=== PATIENT | male | born 1975 | race Caucasian/White ===

== ENCOUNTER 2018-05-21 13:20 | Emergency (ER) | payer MEDICAID, SELFPAY ==
[2018-05-21 13:25] VITALS: BP 118/84; PULSE 70; RESP 16; TEMP 36.9; O2SAT 97
--- NOTE | 2018-05-21 14:08 | ED.GENADUL ---
Disposition Clinical Impression: Penile lesion Disposition: HOME Condition: Fair Additional Instructions: Encourage water intake. Please keep a journal of your symptoms. I asked her home health care social worker help to help facilitate follow-up with neurology. Please follow-up with primary care regarding her neurology symptoms as well as your penile lesion. Your lesion does not appear infected. Do not see evidence of cellulitis or an abscess. It is also not consistent with typical appearance for STD. However, STD testing was performed today and remains pending. Will contact you with any positive results. If you develop spreading of the lesion, increased pain, discharge from your penis, fever/chills or other new/worsening symptoms please seek care urgently once again. Referrals: Ankur Shelton MD [Primary Care Provider] - Medical Decision Making - Lab Data Laboratory Tests 05/21/18 05/21/18 14:22 14:22 WBC 6.13 RBC 4.59 Hgb 14.9 Hct 43.3 MCV 94.3 MCH 32.5 MCHC 34.4 RDW 12.9 Plt Count 225 MPV 9.9 Immature Gran % 0.5 Neutrophils % 56.5 Lymphocytes % 28.7 Monocytes % 9.1 Eosinophils % 4.4 Basophils % 0.8 Absolute Neutrophils 3.46 Absolute Lymphocytes 1.76 Absolute Monocytes 0.56 Absolute Eosinophils 0.27 Absolute Basophils 0.05 Sodium 138 Potassium 3.7 Chloride 104 Carbon Dioxide 25.3 Anion Gap 8.7 BUN 9 Creatinine 0.96 Estimated GFR/1.73 m2 >= 60.00 Glucose 111 H Calcium 8.7 Magnesium 2.1 Total Bilirubin 0.3 AST 32 ALT 41 Alkaline Phosphatase 75 Total Protein 7.8 Albumin 4.0 Results reviewed for labs ordered during visit: Yes - Medical Decision Making Patient presents today with chief complaint of penile lesion. On exam, there is a linear 1 cm raised pink area. It is nontender to palpation. I do not feel any swelling. There is no area of fluctuance to suggest an abscess. There is no opening in the skin. It is not appear to be a chancre or herpetic lesion. No penile discharge. This appears more consistent with him having rubbed against pants versus other irritant. Patient does wear for canvas pants and does not wear any underwear. I did question if it is possible that he allow this area to rub against the pants and he does state it is possible. However, we will obtain STD testing. I did discuss with him that this will take a few days to get the results. At this point, I do not feel that he needs to be prophylactically treated. Regard to his concern for MS, I discussed with him the methods in which to diagnosis. However, will obtain baseline laboratory evaluation. He denies any acute changes at this time. Symptoms have been present for the past 2 years and have been unchanged. I do not feel that emergent MRI is appropriate at this time. However, I will help to facilitate follow-up with neurology. Laboratory evaluation without significant abnormality. Discussed findings with patient. Advised STD testing is still pending. Encourage hydration. Advise close follow-up with primary care to discuss his MS symptoms and a penile lesion. Advised him to try to wear protective clothing to help prevent his penis from rubbing against his thinking of his pants. We discussed signs symptoms of infection and when to seek care urgently once again. I have also asked her home health care social worker to help facilitate follow-up regarding his neurologic symptoms. History of Present Illness - General Chief complaint: RashLesion Stated complaint: CYST Time Seen by Provider: 05/21/18 14:08 Source: patient, RN notes reviewed Mode of arrival: ambulatory Limitations: no limitations - History of Present Illness Initial comments: Patient is a 42-year-old male presenting today with chief complaint of penile lesion. He reports the lesion has been present for the past 3 weeks. Is been unchanged. Reports that it is nonpainful unless he obtains an erection. States that he has not been sexually active in the past 5 months. States he has been in a monogamous relationship for the past 6 years. Reports he was last tested for STDs 20 years ago. She denies any penile discharge. No change in urinary or bowel habits. Patient is also concerned that he may have MS. He reports that he has family history of MS. Reports that for the past 2 years he has had intermittent confusion and weakness. States he has had intermittent fatigue. He has not discussed this as of yet with his primary care. Denies any recent changes in this. No recent illness. No fevers or chills. Denies any headache. Reports that currently he is feeling quite well and is not having 1 of these episodes. Feels that these increased with his anxiety. He has been smoking marijuana daily which he reports has been helping with his anxiety and depression. However, secondary to financial stressors reports that he has not been able to purchase cannabis this week. Is concerned that this may be heightened his anxiety. Denies any head trauma. Denies any GI upset. - Related Data [place] Carbonate Cr [Eskalith Cr] 900 mg PO DAILY 03/29/13 Albuterol [Proair Hfa] 2 puff IH Q6H PRN PRN #1 inh 10/08/16 Inhaler, Assist Devices [Space Chamber Plus] 1 each MC Q6H PRN PRN #1 spacer 10/08/16 Escitalopram [Lexapro] 1 tab PO DAILY 04/28/17 Acetaminophen [Tylenol Extra Strength] 1,000 mg PO Q6H 5 Days #60 tab 05/23/18 Ibuprofen [Motrin Ib] 600 mg PO Q6H 5 Days #60 tablet 05/23/18 Allergies Allergy/AdvReac Type Severity Reaction Status Date / Time fluoxetine HCl [From Prozac] Allergy Severe Hives Unverified 05/21/18 13:30 Review of Systems Constitutional: see HPI. denies: chills, fever Eyes: denies: vision change ENT: denies: ear pain, throat pain, congestion Respiratory: no symptoms reported. denies: cough, shortness of breath Cardiovascular: denies: chest pain, palpitations Gastrointestinal: denies: abdominal pain, nausea, vomiting, diarrhea Genitourinary: as per HPI Musculoskeletal: as per HPI Skin: as per HPI Neurological: as per HPI Past Medical History - Past Medical History Migraines Surgical history: no surgical history Psychiatric history: bipolar, depression - Social History Smoking status: current everyday smoker Alcohol use: none Drug use: marijuana General Exam - General Limitations: no limitations General appearance: alert, in no apparent distress - Head Head exam: Present: atraumatic, normocephalic - Eye Eye exam: Present: normal apperance, PERRL, EOMI. Absent: scleral icterus, conjunctival injection Pupils: Present: normal accommodation - ENT ENT exam: Present: normal exam - Neck Neck exam: Present: normal inspection, full ROM. Absent: tenderness - Respiratory Respiratory exam: Present: normal lung sounds bilaterally. Absent: respiratory distress - Cardiovascular Cardiovascular Exam: Present: regular rate, normal rhythm, normal heart sounds - GI/Abdominal GI/Abdominal exam: Present: soft. Absent: distended, tenderness, guarding - Rectal Rectal exam: Present: deferred - exam: Present: circumcision. Absent: normal inspection (Exam of the patient's penis is significant for an 8 mm slightly raised pink area just proximal to the glans of the penis on the right side. There is no opening. No ulceration. Appears fairly linear. No pain on palpation. No area of fluctuance. It is not hard. No penile discharge. No pain with palpation about the shaft of the penis over the glans.), testicular tenderness, urethral discharge, scrotal swelling - Extremities Exam Extremities exam: Present: normal inspection (5/5 strength equal bilaterally in both the upper and lower extremities. Full range of motion. Reflexes equal in upper and lower extremities bilaterally. No sensory deficit.) - Back Exam Back exam: Present: normal inspection - Neurological Exam Neurological exam: Present: alert, oriented X3, CN II-XII intact, normal gait, reflexes normal. Absent: motor sensory deficit - Expanded Neurological Exam No standard instances Speech: Present: fluid speech Cranial nerves: EOM's Intact: Normal, Tongue Deviation: Normal, Nystagmus: Normal Cerebellar function: Finger to Nose: Normal, Heel to Hernandez: Normal, Romberg: Normal Upper motor neuron: Gregory Neglect: Normal, Pronator Drift: Normal Sensory exam: Upper Extremity Light Touch: Normal, Lower Extremity Light Touch: Normal Best Eye Response (Duy): (4) open spontaneously Best Motor Response (Duy): (6) obeys commands Best Verbal Response ([place]): (5) oriented - Psychiatric Psychiatric exam: Present: normal affect, normal mood - Skin Skin exam: Absent: normal color (As above) Course Vital Signs - 24 hr 05/21/18 13:25 Temperature 36.9 C Pulse 70 Respiratory 16 Rate Blood Pressure 118/84 Pulse Oximetry 97
--- NOTE | 2018-05-21 14:33 | ED.GENADUL_ITS ---
Disposition Clinical Impression: Penile lesion Disposition: HOME Condition: Fair Additional Instructions: Encourage water intake. Please keep a journal of your symptoms. I asked her resident care manager help to help facilitate follow-up with neurology. Please follow-up with primary care regarding her neurology symptoms as well as your penile lesion. Your lesion does not appear infected. Do not see evidence of cellulitis or an abscess. It is also not consistent with typical appearance for STD. However, STD testing was performed today and remains pending. Will contact you with any positive results. If you develop spreading of the lesion, increased pain, discharge from your penis, fever/chills or other new/worsening symptoms please seek care urgently once again. Referrals: Ankur Shelton MD [Primary Care Provider] - Medical Decision Making - Lab Data Laboratory Tests 05/21/18 05/21/18 14:22 14:22 WBC 6.13 RBC 4.59 Hgb 14.9 Hct 43.3 MCV 94.3 MCH 32.5 MCHC 34.4 RDW 12.9 Plt Count 225 MPV 9.9 Immature Gran % 0.5 Neutrophils % 56.5 Lymphocytes % 28.7 Monocytes % 9.1 Eosinophils % 4.4 Basophils % 0.8 Absolute Neutrophils 3.46 Absolute Lymphocytes 1.76 Absolute Monocytes 0.56 Absolute Eosinophils 0.27 Absolute Basophils 0.05 Sodium 138 Potassium 3.7 Chloride 104 Carbon Dioxide 25.3 Anion Gap 8.7 BUN 9 Creatinine 0.96 Estimated GFR/1.73 m2 >= 60.00 Glucose 111 H Calcium 8.7 Magnesium 2.1 Total Bilirubin 0.3 AST 32 ALT 41 Alkaline Phosphatase 75 Total Protein 7.8 Albumin 4.0 Results reviewed for labs ordered during visit: Yes - Medical Decision Making Patient presents today with chief complaint of penile lesion. On exam, there is a linear 1 cm raised pink area. It is nontender to palpation. I do not feel any swelling. There is no area of fluctuance to suggest an abscess. There is no opening in the skin. It is not appear to be a chancre or herpetic lesion. No penile discharge. This appears more consistent with him having rubbed against pants versus other irritant. Patient does wear for canvas pants and does not wear any underwear. I did question if it is possible that he allow this area to rub against the pants and he does state it is possible. However, we will obtain STD testing. I did discuss with him that this will take a few days to get the results. At this point, I do not feel that he needs to be prophylactically treated. Regard to his concern for MS, I discussed with him the methods in which to diagnosis. However, will obtain baseline laboratory evaluation. He denies any acute changes at this time. Symptoms have been present for the past 2 years and have been unchanged. I do not feel that emergent MRI is appropriate at this time. However, I will help to facilitate follow-up with neurology. Laboratory evaluation without significant abnormality. Discussed findings with patient. Advised STD testing is still pending. Encourage hydration. Advise close follow-up with primary care to discuss his MS symptoms and a penile lesion. Advised him to try to wear protective clothing to help prevent his penis from rubbing against his thinking of his pants. We discussed signs symptoms of infection and when to seek care urgently once again. I have also asked her resident care manager to help facilitate follow- up regarding his neurologic symptoms. History of Present Illness - General Chief complaint: RashLesion Stated complaint: CYST Time Seen by Provider: 05/21/18 14:08 Source: patient, RN notes reviewed Mode of arrival: ambulatory Limitations: no limitations - History of Present Illness Initial comments: Patient is a 42-year-old male presenting today with chief complaint of penile lesion. He reports the lesion has been present for the past 3 weeks. Is been unchanged. Reports that it is nonpainful unless he obtains an erection. States that he has not been sexually active in the past 5 months. States he has been in a monogamous relationship for the past 6 years. Reports he was last tested for STDs 20 years ago. She denies any penile discharge. No change in urinary or bowel habits. Patient is also concerned that he may have MS. He reports that he has family history of MS. Reports that for the past 2 years he has had intermittent confusion and weakness. States he has had intermittent fatigue. He has not discussed this as of yet with his primary care. Denies any recent changes in this. No recent illness. No fevers or chills. Denies any headache. Reports that currently he is feeling quite well and is not having 1 of these episodes. Feels that these increased with his anxiety. He has been smoking marijuana daily which he reports has been helping with his anxiety and depression. However, secondary to financial stressors reports that he has not been able to purchase cannabis this week. Is concerned that this may be heightened his anxiety. Denies any head trauma. Denies any GI upset. - Related Data [place] Carbonate Cr [Eskalith Cr] 900 mg PO DAILY 03/29/13 Albuterol [Proair Hfa] 2 puff IH Q6H PRN PRN #1 inh 10/08/16 Inhaler, Assist Devices [Space Chamber Plus] 1 each MC Q6H PRN PRN #1 spacer Escitalopram [Lexapro] 1 tab PO DAILY 04/28/17 Acetaminophen [Tylenol Extra Strength] 1,000 mg PO Q6H 5 Days #60 tab 05/23/18 Ibuprofen [Motrin Ib] 600 mg PO Q6H 5 Days #60 tablet 05/23/18 Allergies Allergy/AdvReac Type Severity Reaction Status Date / Time fluoxetine HCl [From Prozac] Allergy Severe Hives Unverified 05/21/18 13:30 Review of Systems Constitutional: see HPI. denies: chills, fever Eyes: denies: vision change ENT: denies: ear pain, throat pain, congestion Respiratory: no symptoms reported. denies: cough, shortness of breath Cardiovascular: denies: chest pain, palpitations Gastrointestinal: denies: abdominal pain, nausea, vomiting, diarrhea Genitourinary: as per HPI Musculoskeletal: as per HPI Skin: as per HPI Neurological: as per HPI Past Medical History - Past Medical History Migraines Surgical history: no surgical history Psychiatric history: bipolar, depression - Social History Smoking status: current everyday smoker Alcohol use: none Drug use: marijuana General Exam - General Limitations: no limitations General appearance: alert, in no apparent distress - Head Head exam: Present: atraumatic, normocephalic - Eye Eye exam: Present: normal apperance, PERRL, EOMI. Absent: scleral icterus, conjunctival injection Pupils: Present: normal accommodation - ENT ENT exam: Present: normal exam - Neck Neck exam: Present: normal inspection, full ROM. Absent: tenderness - Respiratory Respiratory exam: Present: normal lung sounds bilaterally. Absent: respiratory distress - Cardiovascular Cardiovascular Exam: Present: regular rate, normal rhythm, normal heart sounds - GI/Abdominal GI/Abdominal exam: Present: soft. Absent: distended, tenderness, guarding - Rectal Rectal exam: Present: deferred - exam: Present: circumcision. Absent: normal inspection (Exam of the patient' s penis is significant for an 8 mm slightly raised pink area just proximal to the glans of the penis on the right side. There is no opening. No ulceration. Appears fairly linear. No pain on palpation. No area of fluctuance. It is not hard. No penile discharge. No pain with palpation about the shaft of the penis over the glans.), testicular tenderness, urethral discharge, scrotal swelling - Extremities Exam Extremities exam: Present: normal inspection (5/5 strength equal bilaterally in both the upper and lower extremities. Full range of motion. Reflexes equal in upper and lower extremities bilaterally. No sensory deficit.) - Back Exam Back exam: Present: normal inspection - Neurological Exam Neurological exam: Present: alert, oriented X3, CN II-XII intact, normal gait, reflexes normal. Absent: motor sensory deficit - Expanded Neurological Exam No standard instances Speech: Present: fluid speech Cranial nerves: EOM's Intact: Normal, Tongue Deviation: Normal, Nystagmus: Normal Cerebellar function: Finger to Nose: Normal, Heel to Hernandez: Normal, Romberg: Normal Upper motor neuron: Gregory Neglect: Normal, Pronator Drift: Normal Sensory exam: Upper Extremity Light Touch: Normal, Lower Extremity Light Touch: Normal Best Eye Response ([place]): (4) open spontaneously Best Motor Response (Duy): (6) obeys commands Best Verbal Response (Duy): (5) oriented - Psychiatric Psychiatric exam: Present: normal affect, normal mood - Skin Skin exam: Absent: normal color (As above) Course Vital Signs - 24 hr 05/21/18 13:25 Temperature 36.9 C Pulse 70 Respiratory 16 Rate Blood Pressure 118/84 Pulse Oximetry 97
[2018-05-21 14:41] LABS: Abs Immature Grans 0.03 k/cumm (0.0-0.09); Absolute Basophil Count 0.05 k/cumm (0.0-0.2); Absolute Eosinophil Count 0.27 k/cumm (0.0-0.7); Absolute Lymphocyte Count 1.76 k/cumm (1.2-3.4); Absolute Monocyte Count 0.56 k/cumm (0.11-0.7); Absolute Neutrophil Count 3.46 k/cumm (1.2-6.7); Basophils % 0.8; Eosinophils % 4.4; HCT 43.3 % (40.0-50.0); HGB 14.9 g/dL (13.5-17.5); Immature Grans % 0.5; Lymphocytes % 28.7; Mean Corp. HGB Concentration 34.4 g/dL (32.0-36.0); Mean Corpuscular Hemoglobin 32.5 pg (27.0-33.0); Mean Corpuscular Volume 94.3 fL (80-95); Mean Platelet Volume 9.9 fL (8.0-11.0); Monocytes % 9.1; Neutrophils % 56.5; Platelet Count 225 x1000/uL (130-400); RBC 4.59 m/cumm (4.50-6.00); RBC Distribution Width 12.9 % (11.8-14.1); White Blood Cell Count 6.13 k/cumm (4.4-10.8)
[2018-05-21 14:54] LABS: ALT 41 U/L (12-78); AST 32 U/L (15-37); Alkaline Phosphatase 75 U/L (46-116); Anion Gap 8.7 mmol/L (3-11); BUN 9 mg/dL (7-18); Bilirubin, Total 0.3 mg/dL (0.2-1.0); CO2 25.3 mmol/L (21.0-32.0); CREATININE 0.96 mg/dL (0.70-1.30); Calcium 8.7 mg/dL (8.5-10.1); Chloride 104 mmol/L (98-107); Glucose 111 mg/dL (70-100); Magnesium 2.1 mg/dL (1.8-2.4); Potassium 3.7 mmol/L (3.5-5.1); Sodium 138 mmol/L (136-145); Total Protein 7.8 g/dL (6.4-8.2)
[2018-05-21 15:40] VITALS: BP 118/84; PULSE 70; RESP 16; TEMP 36.9; O2SAT 97
--- NOTE | 2018-05-22 08:56 | PDOC.ERCMPRO ---
Care Management Progress Note 05/22-Wendy MATA requested assistance with a neurology f/u as soon as possible for ?MS. Referral faxed to Neurology this am.
[2018-05-22 10:58] LABS: Syphilis Serology (RPR) Negative (Negative)
[2018-05-22 14:30] LABS: Chlamydia Result Negative; GC Result Negative; Specimen Description URINE
== END 2018-05-21 15:45 | disposition home or self-care (01) ==
PROVIDERS: Physician Assistant; Emergency Provider Student in an Organized Health Care Education/Training Program; PCP General Practice
DX: N50.9 Disorder of male genital organs, unspecified (principal)
CPT/HCPCS: 36415; 80053; 87491; 87591; 99281; 83735; 85025; 86592

== ENCOUNTER 2018-05-23 00:19 | Emergency (ER) | payer MEDICAID, SELFPAY ==
[2018-05-23 00:22] VITALS: BP 148/112; PULSE 74; RESP 18; TEMP 36.7; O2SAT 98
--- NOTE | 2018-05-23 00:28 | ED.GENADUL ---
Disposition Clinical Impression: Bruise, Hand pain, Right hand pain Disposition: HOME Condition: Good Instructions: RICE Therapy (ED) Additional Instructions: Please take Tylenol and Motrin for your pain. Please use ice as often as possible. Follow-up with your family doctor soon as possible. If you notice any worsening of your symptoms, or any new symptoms such as vomiting, diarrhea, fever, chills, shortness of breath, chest pain, numbness, weakness, or fainting , please return immediately to the emergency department for reevaluation. Please follow up with your primary care provider as soon as possible for reassessment and reevaluation. As always, it was a pleasure participating in your medical care today. Prescriptions: Acetaminophen [Tylenol Extra Strength] 1,000 mg PO Q6H 5 Days #60 tab Ibuprofen [Motrin Ib] 600 mg PO Q6H 5 Days #60 tablet Referrals: Ankur Shelton MD [Primary Care Provider] - Medical Decision Making - Medical Decision Making This is a 42-year-old man who presents after punching a wall with his right dominant hand. Notable bruising over the third and fourth MCP joints. There is concern for potential boxer's fracture. We will get an x-ray to evaluate for any acute pathology, including fracture. He will be given Tylenol here. Ice will be administered. X-ray was reviewed, and no large significant fractures noted. There does appear to be a small disruption in the proximal phalanges of the second digit, however on repeat evaluation the patient has no point tenderness there. After the Tylenol is given the patient is feeling much better and is able to flex and extend his fingers and hand without any significant difficulty or notable pain. With no notable fracture, I feel that he can be given an Sandoval wrap, and continue Tylenol and Motrin for home use. We discussed red flags for which to return as well as the importance of follow-up, and he will be following up with his primary care provider in 48 hours. I have extensively reviewed the treatment plan and discharge instructions with the patient. I have addressed all patient concerns at this time. The patient was made aware of what symptoms to monitor for that would warrant a return to the emergency department. Discussed the plan with the patient, they demonstrate verbal understanding and agreement with our assessment and plan at this time. History of Present Illness - General Chief complaint: Orthopedic Stated complaint: RIGHT HAND INJURY Time Seen by Provider: 05/23/18 00:26 - History of Present Illness Initial comments: This is a 42-year-old male with past medical history of bipolar and depression, who presents for evaluation of right hand pain. Roughly 10-15 minutes prior to arrival the patient punched a door with his right dominant hand. He had notable pain at the third and fourth MCP joint on this hand. He did take some Advil, but no other medications prior to arrival. He does complain of pain in that area, no significant radiation. He does complain of mild burning associated with it though. Patient denies any numbness, tingling. He denies any arm, elbow or shoulder pain. He denies any previous orthopedic complications in the past. He denies any illicit drug use or IV drug use but does admit to regular marijuana use. He has no other complaints at this time. Negative pertinent family history. No recent pertinent surgical history. Patient states that he does feel safe at home. He did punch the wall in frustration with himself not at his significant other. He denies any homicidal or suicidal ideations at this time. - Related Data [place] Carbonate Cr [Eskalith Cr] 900 mg PO DAILY 03/29/13 Albuterol [Proair Hfa] 2 puff IH Q6H PRN PRN #1 inh 10/08/16 Inhaler, Assist Devices [Space Chamber Plus] 1 each MC Q6H PRN PRN #1 spacer 10/08/16 Escitalopram [Lexapro] 1 tab PO DAILY 04/28/17 Acetaminophen [Tylenol Extra Strength] 1,000 mg PO Q6H 5 Days #60 tab 05/23/18 Ibuprofen [Motrin Ib] 600 mg PO Q6H 5 Days #60 tablet 05/23/18 Allergies Allergy/AdvReac Type Severity Reaction Status Date / Time fluoxetine HCl [From Prozac] Allergy Severe Hives Unverified 05/21/18 13:30 Review of Systems Other: 10 point review of systems was performed, pertinent positives and negatives are noted in the history of present illness. Past Medical History - Past Medical History Migraines Surgical history: no surgical history - Social History Alcohol use: none Drug use: marijuana General Exam - Other Other exam information: 1.Const: Well-nourished, Well-developed, appearing stated age 2.Eyes: PERRL, no conjunctival injection, and symmetrical lids. 3.ENT: Atraumatic external nose and ears. Moist MM. Neck: Symmetric, trachea midline, No thyromegaly. 4.CVS: +S1/S2, No murmurs or gallops. Peripheral pulses 2+ and equal in all extremities. Brisk capillary refill in all extremities. 5.RESP: Unlabored respiratory effort. Clear to auscultation bilaterally. No wheezes rales or rhonchi 6.GI: Soft, Nontender/Nondistended, No hepatosplenomegaly. No guarding or rebound. 7.MSK: Patient demonstrates trauma to the right hand over the third and fourth MCP joints. There is notable bruising. No deformity. He demonstrates good flexion-extension of all fingers, good sensation, brisk capillary refill. Patient demonstrates no internal or external rotation of the third fourth or fifth digit with flexion of the fingers. No pain over the anatomical snuffbox, carpals or proximal metacarpals. No pain in the third fourth or fifth finger. Pain is only noted over the MCP joint. 8.Skin: Warm, Dry. No rashes or lesions. No evidence of skin breakdown. 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 Sensation grossly intact, no focal neurologic deficits. 10.Psych: (AAO) x3. Appropriate mood and affect Course Vital Signs - 24 hr 05/23/18 00:22 Temperature 36.7 C Pulse 74 Respiratory 18 Rate Blood Pressure 148/112 Pulse Oximetry 98
[2018-05-23] MEDS: Acetaminophen 500 MG TAB 1000 MG PO (00:38)
--- NOTE | 2018-05-23 00:45 | DI.REPORT_ITS ---
SYMPTOMS/DIAGNOSIS: PUNCHED WALL, TENDER 3/4 MCP JOINT, CONCERN FOR BOXER'S FX RIGHT HAND: Three views were obtained. No fracture is seen.
--- NOTE | 2018-05-23 01:25 | DI.VRAD_ITS ---
EXAM: XR Right Hand Complete, 3 or More Views CLINICAL HISTORY: 42 years old, male; Pain; Hand; Right; Patient HX: Pain and swelling at the base of 3rd and 4th metacarpals after punching a door TECHNIQUE: Frontal, lateral and oblique views of the right hand. COMPARISON: No relevant prior studies available. FINDINGS: Bones/joints: Unremarkable. No acute fracture. No dislocation. Soft tissues: Unremarkable. No radiopaque foreign body. IMPRESSION: Normal right hand x-rays. Dictated and Authenticated by: Felipe Love MD. Ordering:AVA CRESPO MD
== END 2018-05-23 01:10 | disposition home or self-care (01) ==
PROVIDERS: Emergency Provider Student in an Organized Health Care Education/Training Program; PCP General Practice
DX: S60.221A Contusion of right hand, initial encounter (principal); M79.641 Pain in right hand; W22.8XXA Striking against or struck by other objects, initial encounter
CPT/HCPCS: 99283; 73130

== ENCOUNTER 2018-06-05 20:25 | Emergency (ER) | payer MEDICAID, SELFPAY ==
[2018-06-05 20:30] VITALS: BP 136/106; PULSE 90; RESP 16; TEMP 36.8; O2SAT 98
--- NOTE | 2018-06-05 21:35 | DI.RPTCT_ITS ---
SYMPTOM/DIAGNOSIS: INTERMITTENT VARIUS NEURO COMPLAINTS, PSYCH EVALUATION, NUMBNESS NONCONTRAST HEAD CT: A noncontrast enhanced examination was performed. There is no evidence of an intra/extra-axial hemorrhage. The castillo white matter differentiation is maintained throughout. There is no evidence of a mass. The ventricles are intact. There is no evidence of a skull fracture. The paranasal sinuses are well maintained. There is no evidence of a mastoid effusion. SUMMARY: No acute intracranial abnormality is identified.
--- NOTE | 2018-06-05 21:46 | ED.GENADUL ---
Disposition Clinical Impression: Difficulty controlling anger, Numbness, Neurological complaint Disposition: HOME Condition: Good Additional Instructions: Follow up with mental health and with your parole officers in the morning as planned. Get back into group therapy which has helped you in the past. Follow-up with your counselor next week. Continue current medications. Return to ED for worsening depression, feeling unsafe, feeling loss of control, other concerns. Follow-up with primary care and neurology for evaluation of your intermittent neurologic complaints. Referrals: Ankur Shelton MD [Primary Care Provider] - Jodi Linder MD [ [facility] STAFF PHYSICIAN] - [facility] [employer] [Provider Group] Medical Decision Making - Lab Data Results reviewed for labs ordered during visit: Yes - Radiology Data Radiology results: report reviewed - Medical Decision Making Patient here for mental health eval. Currently denies being homicidal or suicidal. Reports having trouble controlling his anger and when this happens it causes him to be homicidal. However, he has never actually acted on any of these thoughts. Even tonight when he picked up a knife, if he immediately dropped it. He reports numerous intermittent neurologic complaints. Currently has a normal neurological exam. Reports a penile lesion but his exam is essentially normal. His parole officers are here with him. Laboratory studies and head CT ordered. Patient ordered for a sitter. Laboratory studies unremarkable other than TSH being slightly high. [place] is a little low. Head CT negative. Mental health databases computer consultant called in. Patient has been seen by mental health. Care plan/safety plan established. Patient to follow-up with his parole officers in the morning. They will get him back into group therapy that he had been in previously when he was in half-way. He will also follow-up with mental health in the morning. He has follow-up with his own counselor in 1 week. Return to ED for any unsafe feelings, increasing depression, other concerns. He will be referred back to primary care as well as to neurology for these neurologic symptoms he is reporting. History of Present Illness - General Chief complaint: PsychEval Stated complaint: PSYCH EVAL Time Seen by Provider: 06/05/18 20:59 Source: patient Mode of arrival: ambulatory Limitations: no limitations - History of Present Illness Initial comments: Patient is brought in by his parole officers for psychiatric evaluation. He apparently got angry at work tonight and picked up a knife as a threat to his boss. He ended up dropping a knife and no actual harm ever occurred. Patient reports that he has problems controlling his anger. When he gets angry he sometimes feels like he needs to hurt people. He reports that he has been like this for some time. He is in therapy. He is on medications. He has never actually acted on any of his thoughts. He denies being suicidal or homicidal currently because he has calmed down. Physically he has no acute complaints. He reports chronic neurologic symptoms that are intermittent in nature. He reports headaches, numbness on the left side, weakness in the left leg, dizziness, inability to concentrate. He reports these intermittently happen and have been happening for the last year to 2 years. He tells me he has told his primary care physician but feels nothing has been done. Patient also reports a lesion on his penis that he has been seen here previously for. He reports that it is still there. He otherwise denies other physical complaints. - Related Data [place] Carbonate Cr [Eskalith Cr] 600 mg PO DAILY 03/29/13 Albuterol [Proair Hfa] 2 puff IH Q6H PRN PRN #1 inh 10/08/16 Inhaler, Assist Devices [Space Chamber Plus] 1 each MC Q6H PRN PRN #1 spacer 10/08/16 Escitalopram [Lexapro] 1 tab PO DAILY 04/28/17 Acetaminophen [Tylenol] 1,000 mg PO Q6H 5 Days #60 tab 05/23/18 Ibuprofen [Motrin Ib] 600 mg PO Q6H PRN 06/05/18 Allergies Allergy/AdvReac Type Severity Reaction Status Date / Time fluoxetine HCl [From Prozac] Allergy Severe Hives Unverified 06/05/18 20:30 Review of Systems Constitutional: denies: chills, fever Eyes: denies: vision change ENT: denies: ear pain, congestion Respiratory: denies: cough, shortness of breath Cardiovascular: denies: chest pain Gastrointestinal: denies: abdominal pain, nausea, vomiting, diarrhea Genitourinary: denies: urgency, dysuria, frequency, hematuria, discharge, testicular pain Musculoskeletal: denies: back pain, arthralgia Skin: denies: rash Neurological: headache, weakness, numbness. denies: vertigo Psychiatric: homicidal thoughts (Not active), suicidal thoughts (Not active). denies: auditory hallucinations, visual hallucinations Past Medical History - Past Medical History Migraines Surgical history: no surgical history - Social History Smoking status: former smoker Alcohol use: none Drug use: marijuana General Exam - General Limitations: no limitations General appearance: alert, in no apparent distress - Head Head exam: Present: atraumatic, normocephalic - Eye Eye exam: Present: normal apperance, PERRL, EOMI - ENT ENT exam: Present: mucous membranes moist - Neck Neck exam: Present: normal inspection - Respiratory Respiratory exam: Present: normal lung sounds bilaterally - Cardiovascular Cardiovascular Exam: Present: regular rate, normal rhythm, normal heart sounds - GI/Abdominal GI/Abdominal exam: Present: soft. Absent: distended, tenderness - exam: Present: normal inspection, other (Exam done with male nurse present as brokerage purchase and sale clerk. There are no ulcers or lesions present. What he is describing as a lesion is more of a mild swelling. There is no open sores, redness, tenderness.). Absent: urethral discharge - Extremities Exam Extremities exam: Present: pedal edema - Back Exam Back exam: Present: normal inspection - Neurological Exam Neurological exam: Present: alert, oriented X3, CN II-XII intact. Absent: motor sensory deficit - Psychiatric Psychiatric exam: Present: normal affect, normal mood. Absent: agitated, homicidal ideation, suicidal ideation - Skin Skin exam: Present: warm, dry Course Vital Signs - 24 hr 06/05/18 20:30 Temperature 98.2 F Pulse 90 Respiratory 16 Rate Blood Pressure 136/106 Pulse Oximetry 98
[2018-06-05 22:00] LABS: Abs Immature Grans 0.04 k/cumm (0.0-0.09); Absolute Basophil Count 0.05 k/cumm (0.0-0.2); Absolute Eosinophil Count 0.15 k/cumm (0.0-0.7); Absolute Lymphocyte Count 1.45 k/cumm (1.2-3.4); Absolute Monocyte Count 0.76 k/cumm (0.11-0.7); Absolute Neutrophil Count 5.15 k/cumm (1.2-6.7); Basophils % 0.7; HCT 42.9 % (40.0-50.0); HGB 14.3 g/dL (13.5-17.5); Immature Grans % 0.5; Lymphocytes % 19.1; Mean Corp. HGB Concentration 33.3 g/dL (32.0-36.0); Mean Corpuscular Hemoglobin 30.8 pg (27.0-33.0); Mean Corpuscular Volume 92.5 fL (80-95); Mean Platelet Volume 9.6 fL (8.0-11.0); Neutrophils % 67.7; Platelet Count 287 x1000/uL (130-400); RBC 4.64 m/cumm (4.50-6.00); RBC Distribution Width 13.1 % (11.8-14.1)
[2018-06-05 22:18] LABS: ALT 27 U/L (12-78); AST 16 U/L (15-37); Albumin 4.1 g/dL (3.4-5.0); Alkaline Phosphatase 73 U/L (46-116); Anion Gap 5.3 mmol/L (3-11); BUN 9 mg/dL (7-18); Bilirubin, Total 0.2 mg/dL (0.2-1.0); CO2 27.7 mmol/L (21.0-32.0); CREATININE 0.94 mg/dL (0.70-1.30); Calcium 8.7 mg/dL (8.5-10.1); Chloride 105 mmol/L (98-107); Glucose 120 mg/dL (70-100); Sodium 138 mmol/L (136-145); TSH 5.65 uIU/mL (0.358-3.74); Total Protein 7.5 g/dL (6.4-8.2)
--- NOTE | 2018-06-05 22:22 | DI.VRAD_ITS ---
EXAM: CT Head Without Intravenous Contrast CLINICAL HISTORY: 42 years old, male; Signs and symptoms; Other: Intermittent/various neuro complaints TECHNIQUE: Axial computed tomography images of the head/brain without intravenous contrast. All CT scans at this facility use at least one of these dose optimization techniques: automated exposure control; mA and/or kV adjustment per patient size (includes targeted exams where dose is matched to clinical indication); or iterative reconstruction. Coronal and sagittal reformatted images were created and reviewed. COMPARISON: CT - HEAD WITHOUT CONTRAST 04/28/2017 1:52 PM FINDINGS: No evidence of hemorrhage. No mass effect. No acute intracranial abnormality. IMPRESSION: No evidence of acute intracranial process. Dictated and Authenticated by: Ward Roberts MD. Ordering:ELEUTERIO BATEMAN MD
[2018-06-05 22:33] LABS: ETHANOL BLOOD < 3.0 mg/dL (<3)
[2018-06-05 23:00] LABS: Tricyclic Antidepressants Negative (Negative)
[2018-06-05 23:01] LABS: *AMPHETAMINES SCREEN URINE Negative (Negative); *BARBITURATES SCREEN URINE Negative (Negative); *BENZODIAZEPINES SCREEN URINE Negative (Negative); Cannabinoids THC POSITIVE (Negative); Cocaine Screen,Urine Negative (Negative); METHADONE URINE SCREEN Negative (Negative); OPIATES URINE SCREEN Negative (Negative)
--- NOTE | 2018-06-06 00:21 | ERMH_ITS ---
Presenting issue: *How did they arrive here at ER and why did they come: Patient arrived at the Emergency Department with Yohannes Dodson (Community Family Dentist with the [facility] [employer] and [place]) with concerns of HI. Precipitating Factors: *Assessment of Safety SI / HI- (Address delusions if pertaining to the SI/ HI) Patient admits to having thought of HI but has no intention of following through with such thoughts. He states that he is here to get help before his thoughts become actions. 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 Yohannes Dodson contacted the patient's who lives in the apartment above him and she will take possession of the shovel that he has identified as a weapon. The patient will meet with his probation/railroad police officer first thing in the morning to discuss enrolling in group therapy. The patient also has a scheduled appointment with [facility] on 06/12. A follow-up call will be made to this client tomorrow by either this senior writer or another [facility] employee. Provisional Diagnosis:(only if required by physician): [] AXIS 5 Case Handover: Done with ED nurse (name): [] Date & Time [] Huddle: done with ED staff (for boarding clients): [] Yes [] No Date /Time [] Referral for Case management: Has phone call for introduction been made [] Yes [] No Referral in EMR: Done and sent? [] Yes [] NO Clinicians Name and title and Signature: [Jazmine Bravo - [facility] Emergency Clinician] Make sure that you are photocopying and submitting this to [facility] records dept.to be scanned into chart
[2018-06-06 00:43] LABS: Lithium 0.55 mmol/L (0.60-1.20)
== END 2018-06-06 01:10 | disposition home or self-care (01) ==
PROVIDERS: Emergency Provider Emergency Medicine; PCP General Practice
DX: R45.4 Irritability and anger (principal); R42 Dizziness and giddiness; R51 Headache; R20.0 Anesthesia of skin; R41.840 Attention and concentration deficit; F31.9 Bipolar disorder, unspecified
CPT/HCPCS: 36415; 80053; 80307; 99284; 70450; 80178; 80320; 84443; 85025; 99285

== ENCOUNTER 2018-08-23 14:39 | Emergency (ER) | payer MEDICAID, SELFPAY ==
[2018-08-23 14:46] VITALS: BP 126/78; PULSE 63; RESP 12; TEMP 36.5; O2SAT 98
--- NOTE | 2018-08-23 15:09 | DI.CT_ITS ---
SYMPTOM/DIAGNOSIS: FELL, HIT HEAD, NOW SYNCOPE NONCONTRAST HEAD CT: Comparison is made with prior examinations. There is normal castillo white matter differentiation. There is again seen a 1 cm. round area of CSF attenuation in the right frontal lobe. This is unchanged dating back to 2006. No acute intracranial hemorrhage, infarct, midline shift or mass effect is identified. The ventricles are intact. The basilar cisterns are patent. The visualized paranasal sinuses are clear. The mastoid air cells are well pneumatized. The calvarium is intact. IMPRESSION: No acute intracranial process.
--- NOTE | 2018-08-23 15:43 | NUR.NOTE ---
Mental Health is at the bedside.
--- NOTE | 2018-08-23 16:46 | DI.VRAD_ITS ---
EXAM: CT Head Without Intravenous Contrast EXAM DATE/TIME: 08/23/2018 3:10 PM CLINICAL HISTORY: 42 years old, male; Signs and symptoms; Other: Fall, hit head, syncope TECHNIQUE: Axial computed tomography images of the head/brain without intravenous contrast. All CT scans at this facility use at least one of these dose optimization techniques: automated exposure control; mA and/or kV adjustment per patient size (includes targeted exams where dose is matched to clinical indication); or iterative reconstruction. Coronal and sagittal reformatted images were created and reviewed. COMPARISON: CT HEAD WITHOUT CONTRAST 06/05/2018 9:52 PM FINDINGS: Brain: A rounded hypodensity with attenuation of CSF is seen in the right frontal lobe. This appears similar to prior. No hemorrhage, mass or midline shift. Ventricles: Normal. No ventriculomegaly. Bones/joints: Normal. No acute fracture. Sinuses: Normal as visualized. No acute sinusitis. Mastoid air cells: Normal as visualized. No mastoid effusion. Soft tissues: Normal. IMPRESSION: No acute intracranial findings. Dictated and Authenticated by: Epifanio Morales MD. Ordering:AVA CRESOP MD
--- NOTE | 2018-08-23 16:52 | W.ED.GENAD ---
Discharge Plan Disposition Patient Disposition: HOME Condition: Good Discharge Details Chief Complaint: PsychEval Clinical Impression: Anxiety, Fall, Concussion Primary Care Provider: Ankur Shelton ED Provider: Mustapha Davis Home Meds and New Rx's Prescriptions: No Action lithium carbonate 300 MG tablet extended release 600 mg PO DAILY RF: 0 albuterol sulfate [ProAir HFA] 200 PUFF HFA aerosol inhaler 2 puff Inhalation Q6H PRN PRNQty: 1 RF: 0 inhalational spacing device [Space Chamber Plus] 1 EACH spacer 1 ea Miscellaneous Q6H PRN PRNQty: 1 RF: 0 escitalopram oxalate [Lexapro] 20 MG tablet 1 tab PO DAILY RF: 0 acetaminophen [Mapap Extra Strength] 500 MG tablet 1,000 mg PO Q6H 5 Days Qty: 60 RF: 0 Ibuprofen [Motrin Ib] 200 MG Tablet 600 mg PO Q6H PRNRF: 0 Discharge Instructions Instructions: Concussion (ED), Acute Headache (ED) Additional Instructions: Please take Tylenol Motrin for your headache. Please do your best to avoid any significant trauma or hitting her head again. Please follow-up with your mental health liaison's on a regular basis. If you notice any worsening of your symptoms, or any new symptoms such as vomiting, diarrhea, fever, chills, shortness of breath, chest pain, numbness, weakness, or fainting , please return immediately to the emergency department for reevaluation. Please follow up with your primary care provider as soon as possible for reassessment and reevaluation. As always, it was a pleasure participating in your medical care today. Stand Alone Forms: Work Release Referrals: Ankur Shelton MD [Primary Care Provider] - Discharge Data Discharge Date/Time-TO BE ENTERED AT DEPARTURE: 08/23/18 17:13 Medical Decision Making This is a pleasant 42-year-old male who presents for evaluation of falling slipping his head, and now feeling lightheaded. He also has notable anxiety and stress in his life. He is bipolar. Regards to his physical exam no acute abnormalities are noted, no neurologic deficits, no signs of significant trauma. CT head is negative for any acute process. EKG is benign with no significant abnormalities. I had a long conversation with the patient regarding his stressors in his life, we did consult mental health and had them come and evaluate him in contact and discuss his current situation with him. After a long conversation the patient states that he feels much better from a mental and physical standpoint and would like to go home. He has no auditory or visual hallucinations, no homicidal or suicidal ideations and appears extremely calm and complacent at this time. I feel that discharge home is certainly reasonable, mental health Associates agree with this plan. Patient will be discharged home with close follow-up with his PCP. We discussed red flags which to return patient understands. I feel is most likely suffering from a mild concussion from his fall. I have extensively reviewed the treatment plan and discharge instructions with the patient. I have addressed all patient concerns at this time. The patient was made aware of what symptoms to monitor for that would warrant a return to the emergency department. Discussed the plan with the patient, they demonstrate verbal understanding and agreement with our assessment and plan at this time. EKG 15: 24 Rate 66, intervals normal, sinus rhythm, no ST elevations or depressions, inverted T wave in V1. No Q waves, no epsilon or delta waves. FINDINGS: Brain: A rounded hypodensity with attenuation of CSF is seen in the right frontal lobe. This appears similar to prior. No hemorrhage, mass or midline shift. Ventricles: Normal. No ventriculomegaly. Bones/joints: Normal. No acute fracture. Sinuses: Normal as visualized. No acute sinusitis. Mastoid air cells: Normal as visualized. No mastoid effusion. Soft tissues: Normal. IMPRESSION: No acute intracranial findings. HPI General Date/Time Provider Initiated Documentation: 08/23/18 14:41. HPI Narrative: This is a pleasant 42-year-old male with a past medical history of bipolar, who presents today for evaluation of stress, as well as following slipping on ice and hitting his head now with a mild headache and feeling lightheaded. Patient states that he has been going through multiple stressors in his life, he feels that he just needs to talk to someone. He denies any homicidal or suicidal lesions. He denies any visual or auditory hallucinations. He denies any IV or illicit drug use or alcohol use. He did miss his counselors appointment today and he feels like this really threw him off today. Regards to the slip and lightheadedness he denies any actual syncope, but does admit to mild lightheadedness. He denies any history of sudden in his family, or other episodes of syncope in the past. He denies any exertional syncope or exertional chest pain. He denies any other complaints at this time. No other modifying factors Related Data Home Medications Medication Instructions Recorded Confirmed lithium carbonate 600 mg PO DAILY 03/29/13 08/23/18 albuterol sulfate [ProAir HFA] 2 puff INHALATION Q6H PRN PRN #1 10/08/16 08/23/18 inh inhalational spacing device [Space #1 spacer 10/08/16 06/05/18 Chamber Plus] escitalopram oxalate [Lexapro] 1 tab PO DAILY 04/28/17 08/23/18 acetaminophen [Mapap Extra 1,000 mg PO Q6H 5 Days #60 tab 05/23/18 08/23/18 Strength] Ibuprofen [Motrin Ib] 600 mg PO Q6H PRN 06/05/18 08/23/18 Previous Rx's Medication Instructions Recorded albuterol sulfate [ProAir HFA] 2 puff INHALATION Q6H PRN PRN #1 10/08/16 inh inhalational spacing device [Space #1 spacer 10/08/16 Chamber Plus] acetaminophen [Mapap Extra 1,000 mg PO Q6H 5 Days #60 tab 05/23/18 Strength] Allergies Allergy/AdvReac Type Severity Reaction Status Date / Time fluoxetine HCl [From Prozac] Allergy Severe Hives Unverified 08/23/18 14:51 General Stated Complaint: PsychEval FELIZ: 2 Review of Systems Review of Systems All systems reviewed & are unremarkable except as noted in HPI and below PFSH Social History Smoking/Tobacco Use Status: Former Tobacco Use Exam Narrative Exam Narrative: 1.Const: Well-nourished, Well-developed, appearing stated age 2.Eyes: PERRL, no conjunctival injection, and symmetrical lids. 3.ENT: Atraumatic external nose and ears. Moist MM. Neck: Symmetric, trachea midline, No thyromegaly. There is no evidence of raccoon eyes, nava sign, CSF rhinorrhea, mastoid tenderness, cranial crepitus, hemotympanum, exophthalmos, or hyphema. Patient demonstrates intact dentition with no signs of tooth avulsion or fracture, no signs of jaw deformity, no evidence of a LeFort's fracture, with an intact palate, nose and orbital region. There is no evidence of a nasal septal hematoma. No proptosis. Jaw closes symmetrically. Airway is clear. 4.CVS: +S1/S2, No murmurs or gallops. Peripheral pulses 2+ and equal in all extremities. Brisk capillary refill in all extremities. 5.RESP: Unlabored respiratory effort. Clear to auscultation bilaterally. No wheezes rales or rhonchi 6.GI: Soft, Nontender/Nondistended, No hepatosplenomegaly. No guarding or rebound. 7.MSK: Normocephalic/Atraumatic, Extremities w/o deformity or ttp No cyanosis or clubbing, Normal movement of all extremities 8.Skin: Warm, Dry. No rashes or lesions. 9.Neuro: legal project manager II-XII grossly intact. Sensation grossly intact, no focal neurologic deficits. All 6 cardinal planes of vision are fully intact. No evidence of rotatory or vertical nystagmus. The patient demonstrated a normal [id number], good dexterity. There was no evidence of dysdiadochokinesia. Patient was able to ambulate without difficulty. There was no wide-based gait. Romberg, and [id number] are both normal on testing. Sensation was intact bilaterally as well as muscle strength bilaterally for all extremities. Patient was able to verbalize butter cup with no slurring, or miss pronunciation. 10.Psych: (AAO) x3. Appropriate mood and affect Course Vital Signs Temperature 36.5 C 08/23/18 14:46 Pulse 63 08/23/18 14:46 Respiratory Rate 12 08/23/18 14:46 Blood Pressure 126/78 08/23/18 14:46 Pulse Oximetry 98 08/23/18 14:46 Temperature 36.5 C 08/23/18 14:46 Temperature Source Temporal Artery Scan 08/23/18 14:46 Pulse 63 08/23/18 14:46 Respiratory Rate 12 08/23/18 14:46 Respiratory Effort Non-Labored 08/23/18 14:50 Blood Pressure 126/78 08/23/18 14:46 Blood Pressure Position Sitting 08/23/18 14:46 Pulse Oximetry 98 08/23/18 14:46 Oxygen Delivery Method Room Air 08/23/18 14:46 Oxygen Flow Rate 0 11/15/18 14:46 Pain Level 10 08/23/18 14:46
[2018-08-23 17:11] VITALS: BP 129/73; PULSE 65; RESP 18; O2SAT 100
== END 2018-08-23 17:13 | disposition home or self-care (01) ==
LOC: ER 17:09
PROVIDERS: Emergency Provider Student in an Organized Health Care Education/Training Program; PCP General Practice
DX: S06.0X0A Concussion without loss of consciousness, initial encounter (principal); F41.9 Anxiety disorder, unspecified; R42 Dizziness and giddiness; W00.0XXA Fall on same level due to ice and snow, initial encounter
CPT/HCPCS: 93005; 99284; 70450; 93010

== ENCOUNTER 2018-11-02 08:09 | Outpatient (CLI) | payer MEDICAID, SELFPAY ==
[2018-11-02 09:26] LABS: Lithium 1.11 mmol/L (0.60-1.20)
[2018-11-02 09:41] LABS: ALT 22 U/L (12-78); AST 18 U/L (15-37); Alkaline Phosphatase 60 U/L (46-116); Anion Gap 8.2 mmol/L (3-11); BUN 11 mg/dL (7-18); Bilirubin, Total 0.7 mg/dL (0.2-1.0); CO2 27.8 mmol/L (21.0-32.0); CREATININE 1.15 mg/dL (0.70-1.30); Calcium 9.1 mg/dL (8.5-10.1); Chloride 105 mmol/L (98-107); Glucose 101 mg/dL (70-100); Potassium 3.8 mmol/L (3.5-5.1); Sodium 141 mmol/L (136-145); TSH (W/Ref FT4) 2.85 uIU/mL (0.358-3.74)
== END 2018-11-02 08:29 ==
PROVIDERS: PCP General Practice; Visit Provider Nurse Practitioner Family
DX: F33.1 Major depressive disorder, recurrent, moderate (principal); Z51.81 Encounter for therapeutic drug level monitoring; Z79.899 Other long term (current) drug therapy
CPT/HCPCS: 36415; 80053; 80178; 84443

== ENCOUNTER 2019-02-19 12:50 | Observation (INO) | payer MEDICAID, SELFPAY ==
[2019-02-19] VITALS (8 sets, daily range): BP systolic 106–140; BP diastolic 68–92; PULSE 60–78; RESP 15–17; TEMP 36.1–36.6; O2SAT 98
--- NOTE | 2019-02-19 13:20 | W.ED.GENAD ---
Discharge Plan Disposition Patient Disposition: [facility] INPATIENT Condition: Stable Discharge Details Chief Complaint: Abd Prob Clinical Impression: [place] toxicity Admit Date/Time: 02/19/19 15:07 Admit Provider: Enzo Nobles Attending Provider: Enzo Nobles Primary Care Provider: Ankur Shelton ED Provider: Jose Cohen Discharge Instructions Forms: Nursing Discharge Form Referrals: Ankur Shelton MD [Primary Care Provider] - Discharge Data Discharge Date/Time-TO BE ENTERED AT DEPARTURE: 02/19/19 15:36 Medical Decision Making <Jose Cohen NP - Last Filed: 02/20/19 10:13> Patient presenting the emergency department for chief complaint of nausea vomiting. He states some mild associated epigastric pain and chills but denies any fever. He states that this started yesterday and has not been able to keep down anything since including his lithium. Patient denies any diarrhea, rash, chest pain shortness of breath or other illness symptoms. Physical exam shows a mildly tender epigastrium otherwise negative abdominal exam respiratory and cardiac exam. Patient does look slightly dehydrated but vital signs are stable. Plan to check labs for any electrolyte abnormalities. Pending results patient given Zofran and IV fluids. Review of labs show no significant leukocytosis, appropriate renal function and nondiagnostic CMP, but lithium level of 1.96. Patient reassessed and did state he has felt some mental fog over the last couple days but denies any additional dosing of lithium and actually states that he missed his dose last night. EKG was ordered and reviewed with Dr. Davis and no QT prolongation was noted. Given significant elevation of lithium levels spoke with hospitalist Dr. Nobles he who agreed to have patient admitted for further care. Patient was agreeable to this plan of care . <Mustapha Davis DO - Last Filed: 02/19/19 14:36> EKG 14: 30 Rate 63, intervals normal, sinus rhythm, Q waves in V1 and V2, inverted T wave in V2, no significant ST elevations or depressions. HPI <Jose Cohen NP - Last Filed: 02/20/19 10:13> General Mode of arrival: ambulatory. Date/Time Provider Initiated Documentation: 02/19/19 12:53. Limitations to Documentation: no limitations. Information obtained by: patient and RN notes reviewed. History of Present Illness 43 year old M presents to the emergency department with the chief complaint of Nausea vomiting, described as moderate, Quality is described as aching and other (Patient denies current pain), and is localized to the abdomen. Patient started experiencing this day(s) (1) and it has been intermittent. No relieving factors improve symptom(s), No exacerbating factors reported . Patient did receive the following treatments prior to arrival, none Related Data Home Medications Medication Instructions Recorded Confirmed lithium carbonate 900 mg PO DAILY 03/29/13 02/19/19 Allergies Allergy/AdvReac Type Severity Reaction Status Date / Time fluoxetine HCl [From Prozac] Allergy Severe Hives Unverified 02/19/19 13:04 General Stated Complaint: Abd Prob FELIZ: 3 Review of Systems <Jose Cohen NP - Last Filed: 02/20/19 10:13> Constitutional Denies chills, Denies fever(s) and Reports poor appetite Cardiovascular Denies chest pain and Denies dyspnea Respiratory Denies cough and Denies dyspnea Gastrointestinal Reports as per HPI, Reports abdominal pain (epigastric), Denies melena, Denies change in bowel habits, Denies constipation, Denies diarrhea, Reports nausea and Reports vomiting Genitourinary Denies hematuria, Denies difficulty urinating, Denies urinary hesitancy, Denies urinary incontinence and Denies urinary urgency Integumentary/Breasts Denies rash PFSH <Jose Cohen NP - Last Filed: 02/20/19 10:13> Medical History Anxiety (Chronic) Bipolar disorder (Chronic) Depression (Chronic) Social History Smoking/Tobacco Use Status: Former Tobacco Use Alcohol Intake: never Drug use: Occasionally Substance use type: marijuana Do you feel safe at home: Yes Do you feel safe in your relationship?: No Exam <Jose Cohen NP - Last Filed: 02/20/19 10:13> Const General: cooperative Orientation: alert, awake and oriented x3 Resp Effort & Inspection: normal respiratory effort and able to speak in complete sentences Auscultation: clear to auscultation bilaterally Cardio Rate: regular rate Rhythm: regular rhythm Heart Sounds: S1 normal and S2 normal GI Palpation: soft, no hepatosplenomegaly, not firm, no guarding, no masses, no pulsatile masses, not rigid, no splenomegaly and tender in the epigastrum; not at McBurney's point, not periumbilically, Hinds's sign negative, with no rebound tenderness and Rovsing's sign negative Auscultation: normal bowel sounds Back/Spine/Pelvis Back: no CVA tenderness Neuro General: alert, awake, oriented x3, gait normal, tone normal, moves all extremities, no focal motor deficits and CN's II-XI intact bilaterally Cognition: normal cognition Speech: speech normal Course <Jose Cohen, LEATHER WHITENER - Last Filed: 02/20/19 10:13> Vital Signs Temperature 36.1 C L 02/19/19 12:59 Pulse 72 02/19/19 12:59 Respiratory Rate 15 02/19/19 12:59 Blood Pressure 140/92 H 02/19/19 12:59 Pulse Oximetry 98 02/19/19 12:59 Temperature 36.1 C L 02/19/19 12:59 Temperature Source Temporal Artery Scan 02/19/19 12:59 Pulse 72 02/19/19 12:59 Respiratory Rate 15 02/19/19 12:59 Respiratory Effort Non-Labored 02/19/19 13:03 Blood Pressure 140/92 H 02/19/19 12:59 Blood Pressure Position Sitting 02/19/19 12:59 Pulse Oximetry 98 02/19/19 12:59 Oxygen Delivery Method Room Air 02/19/19 12:59 Oxygen Flow Rate 0 02/19/19 12:59 Pain Level 7 02/19/19 12:59 Comment 02/19/19 12:59
--- NOTE | 2019-02-19 13:23 | ED.GENADUL_ITS ---
Discharge Plan Disposition Patient Disposition: [facility] INPATIENT Condition: Stable Discharge Details Chief Complaint: Abd Prob Clinical Impression: [place] toxicity Admit Date/Time: 02/19/19 15:07 Admit Provider: Enzo Nobles Attending Provider: Enzo Nobles Primary Care Provider: Ankur Shelton ED Provider: Jose Cohen Discharge Instructions Forms: Nursing Discharge Form Referrals: Ankur Shelton MD [Primary Care Provider] - Discharge Data Discharge Date/Time-TO BE ENTERED AT DEPARTURE: 02/19/19 15:36 Medical Decision Making <Jose Cohen NP - Last Filed: 02/20/19 10:13> Patient presenting the emergency department for chief complaint of nausea vomiting. He states some mild associated epigastric pain and chills but denies any fever. He states that this started yesterday and has not been able to keep down anything since including his lithium. Patient denies any diarrhea, rash, chest pain shortness of breath or other illness symptoms. Physical exam shows a mildly tender epigastrium otherwise negative abdominal exam respiratory and cardiac exam. Patient does look slightly dehydrated but vital signs are stable. Plan to check labs for any electrolyte abnormalities. Pending results patient given Zofran and IV fluids. Review of labs show no significant leukocytosis, appropriate renal function and nondiagnostic CMP, but lithium level of 1.96. Patient reassessed and did state he has felt some mental fog over the last couple days but denies any additional dosing of lithium and actually states that he missed his dose last night. EKG was ordered and reviewed with Dr. Davis and no QT prolongation was noted. Given significant elevation of lithium levels spoke with hospitalist Dr. Nobles he who agreed to have patient admitted for further care. Patient was agreeable to this plan of care . <Mustapha Davis DO - Last Filed: 02/19/19 14:36> EKG 14: 30 Rate 63, intervals normal, sinus rhythm, Q waves in V1 and V2, inverted T wave in V2, no significant ST elevations or depressions. HPI <Jose Cohen NP - Last Filed: 02/20/19 10:13> General Mode of arrival: ambulatory . Date/Time Provider Initiated Documentation: 02/19/19 12:53 . Limitations to Documentation: no limitations . Information obtained by: patient and RN notes reviewed . History of Present Illness 43 year old M presents to the emergency department with the chief complaint of Nausea vomiting, described as moderate, Quality is described as aching and other (Patient denies current pain), and is localized to the abdomen. Patient started experiencing this day(s) (1) and it has been intermittent. No relieving factors improve symptom(s), No exacerbating factors reported . Patient did receive the following treatments prior to arrival, none Related Data Home Medications Medication Instructions Recorded Confirmed lithium carbonate 900 mg PO DAILY 03/29/13 02/19/19 Allergies Allergy/AdvReac Type Severity Reaction Status Date / Time fluoxetine HCl [From Prozac] Allergy Severe Hives Unverified 02/19/19 13:04 General Stated Complaint: Abd Prob FELIZ: 3 Review of Systems <Jose Cohen NP - Last Filed: 02/20/19 10:13> Constitutional Denies chills, Denies fever(s) and Reports poor appetite Cardiovascular Denies chest pain and Denies dyspnea Respiratory Denies cough and Denies dyspnea Gastrointestinal Reports as per HPI, Reports abdominal pain (epigastric), Denies melena, Denies change in bowel habits, Denies constipation, Denies diarrhea, Reports nausea and Reports vomiting Genitourinary Denies hematuria, Denies difficulty urinating, Denies urinary hesitancy, Denies urinary incontinence and Denies urinary urgency Integumentary/Breasts Denies rash PFSH <Jose Cohen NP - Last Filed: 02/20/19 10:13> Medical History Anxiety (Chronic) Bipolar disorder (Chronic) Depression (Chronic) Social History Smoking/Tobacco Use Status: Former Tobacco Use Alcohol Intake: never Drug use: Occasionally Substance use type: marijuana Do you feel safe at home: Yes Do you feel safe in your relationship?: No Exam <Jose Cohen NP - Last Filed: 02/20/19 10:13> Const General: cooperative Orientation: alert, awake and oriented x3 Resp Effort & Inspection: normal respiratory effort and able to speak in complete sentences Auscultation: clear to auscultation bilaterally Cardio Rate: regular rate Rhythm: regular rhythm Heart Sounds: S1 normal and S2 normal GI Palpation: soft, no hepatosplenomegaly, not firm, no guarding, no masses, no pulsatile masses, not rigid, no splenomegaly and tender in the epigastrum; not at McBurney's point, not periumbilically, Hinds's sign negative, with no rebound tenderness and Rovsing's sign negative Auscultation: normal bowel sounds Back/Spine/Pelvis Back: no CVA tenderness Neuro General: alert, awake, oriented x3, gait normal, tone normal, moves all extremities, no focal motor deficits and CN's II-XI intact bilaterally Cognition: normal cognition Speech: speech normal Course <Jose Cohen, NETWORK ANNOUNCER - Last Filed: 02/20/19 10:13> Vital Signs Temperature 36.1 C L 02/19/19 12:59 Pulse 72 02/19/19 12:59 Respiratory Rate 15 02/19/19 12:59 Blood Pressure 140/92 H 02/19/19 12:59 Pulse Oximetry 98 02/19/19 12:59 Temperature 36.1 C L 02/19/19 12:59 Temperature Source Temporal Artery Scan 02/19/19 12:59 Pulse 72 02/19/19 12:59 Respiratory Rate 15 02/19/19 12:59 Respiratory Effort Non-Labored 02/19/19 13:03 Blood Pressure 140/92 H 02/19/19 12:59 Blood Pressure Position Sitting 02/19/19 12:59 Pulse Oximetry 98 02/19/19 12:59 Oxygen Delivery Method Room Air 02/19/19 12:59 Oxygen Flow Rate 0 02/19/19 12:59 Pain Level 7 02/19/19 12:59 Comment 02/19/19 12:59
[2019-02-19] MEDS: Normal Saline 1,000 ML 1000 ML IV (13:29)
[2019-02-19] MEDS: Ondansetron 4 MG/2 ML VIAL IVP ×2 (13:31→19:56)
[2019-02-19 13:33] LABS: Abs Immature Grans 0.02 k/cumm (0.0-0.09); Absolute Basophil Count 0.04 k/cumm (0.0-0.2); Absolute Lymphocyte Count 1.47 k/cumm (1.2-3.4); Absolute Monocyte Count 0.66 k/cumm (0.11-0.7); Absolute Neutrophil Count 4.51 k/cumm (1.2-6.7); Basophils % 0.6; Eosinophils % 2.9; HCT 44.6 % (40.0-50.0); HGB 15.2 g/dL (13.5-17.5); Immature Grans % 0.3; Lymphocytes % 21.3; Mean Corp. HGB Concentration 34.1 g/dL (32.0-36.0); Mean Corpuscular Hemoglobin 32.3 pg (27.0-33.0); Mean Corpuscular Volume 94.7 fL (80-95); Mean Platelet Volume 10.5 fL (8.0-11.0); Monocytes % 9.6; Neutrophils % 65.3; Platelet Count 257 x1000/uL (130-400); RBC 4.71 m/cumm (4.50-6.00); RBC Distribution Width 12.5 % (11.8-14.1)
[2019-02-19 13:48] LABS: ALT 27 U/L (12-78); AST 19 U/L (15-37); Albumin 4.3 g/dL (3.4-5.0); Alkaline Phosphatase 60 U/L (46-116); Anion Gap 9.8 mmol/L (3-11); BUN 17 mg/dL (7-18); Bilirubin, Total 0.3 mg/dL (0.2-1.0); CO2 26.2 mmol/L (21.0-32.0); CREATININE 1.12 mg/dL (0.70-1.30); Calcium 9.4 mg/dL (8.5-10.1); Chloride 102 mmol/L (98-107); Glucose 122 mg/dL (70-100); Potassium 4.3 mmol/L (3.5-5.1); Sodium 138 mmol/L (136-145); Total Protein 7.6 g/dL (6.4-8.2)
[2019-02-19 13:49] LABS: Lipase 67 U/L (73-393)
[2019-02-19 14:03] LABS: Lithium 1.96 mmol/L (0.60-1.20)
[2019-02-19 14:51] LABS: Bilirubin Negative (Negative); Blood Negative (Negative); Clarity Clear; Glucose Negative (Negative); Ketones Negative (Negative); Leukocyte Esterase Negative (Negative); Nitrite Negative (Negative); Specific Gravity 1.015 (1.005-1.025); Urobilinogen 0.2 EU/dL (Up TO 0.2)
[2019-02-19] MEDS: Enoxaparin 40 MG/0.4 ML SYR SC (16:26)
[2019-02-19] MEDS: Normal Saline 1,000 ML 150 ML IV ×2 (16:27→23:13)
--- NOTE | 2019-02-19 16:48 | HPE_ITS ---
Date of service: 02/19/19 Time of Service: 16:43 Assessment and Plan (1) [place] toxicity: Current visit: Yes Status: Acute [place] level 1.96. He missed his dose last night due to nausea and vomiting. It is unclear whether this is early lithium toxicity or if he had a GI bug causing dehydration with subsequent elevated lithium level. Hydrate with IV fluids, monitor on telemetry for QTc prolongation. Hold lithium. Repeat lithium level in the morning. TSH with morning labs. Follow renal function closely. (2) Bipolar disorder: Current visit: Yes Status: Chronic Takes lithium for bipolar with depression. Hold lithium as above. (3) Depression: Current visit: Yes Status: Chronic as above. (4) Anxiety: Current visit: Yes Status: Chronic PRN lorazepam for anxiety while hospitalized. (5) Lesion of tongue: Current visit: Yes Status: Acute Thrush vs other. Trial nystatin. Continue to monitor. (6) Bed bug bite: Current visit: Yes Status: Acute Known bed bug infestation at his home with bites noted on his abdomen. Follow protocol for patients with bed bugs. (7) DVT prophylaxis: Current visit: Yes Status: Acute subcutaneous lovenox. (8) Discharge planning issues: Current visit: Yes Status: Acute He is a Full code. This case was discussed with Dr. Nobles who is in agreement. History of Present Illness Chief Complaint: Nausea, vomiting, mental fog Narrative: Naveed Uribe is a 43 year old male with a past medical history significant for anxiety, depression and bipolar for which he takes lithium. He presented to the ED today with reports of nausea and vomiting with associated epigastric discomfort which began on 2 days ago. 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 He also reported onset of acid reflux today as well as mild shortness of breath. He had labs drawn in the ED which did not show leukocytosis, his renal function was normal, however, he had an elevated lithium level at 1.96 (normal range 0.6-1.2). He appeared mildly dehydrated and was initiated on IV fluids. Due to the elevated lithium level with GI symptoms, he was admitted to the med/surg floor for further evaluation and treatment. Upon admission the floor, he denies chest pain/pressure, palpitations, he continues to have nausea without vomiting, he does endorse epigastric discomfort. He has been drinking but has not been eating today due to his nause a and vomiting. He also reports that he has bed bugs and has bites on his abdomen. He has significant anxiety at baseline. He reports that he smokes marijuana for his anxiety. He denies any dysuria or hematuria. He has had normal bowel movements, his last bowel movement was this morning. He denies diarrhea. He will receive IV fluids and be monitored on telemetry due to the concern of QTC prolongation. Review of Systems Review of Systems All systems reviewed & are unremarkable except as noted in HPI and below PFSH Medical History Anxiety (Chronic) Bipolar disorder (Chronic) Depression (Chronic) Social History Smoking/Tobacco Use Status: Former Tobacco Use Alcohol Intake: never Drug use: Occasionally Substance use type: marijuana Do you feel safe at home: Yes Do you feel safe in your relationship?: No Meds Home Medications Medication Instructions Recorded Confirmed Type lithium carbonate 900 mg PO DAILY 03/29/13 02/19/19 History Allergies Allergy/AdvReac Type Severity Reaction Status Date / Time fluoxetine HCl [From Prozac] Allergy Severe Hives Unverified 02/19/19 13:04 Exam Narrative Exam Narrative: General: awake, alert and oriented, sitting up in bed in NAD. Skin: bed bug bites noted on abdomen primarily to right side. HEENT: edentulous, mucous membranes moist, tongue with white patches. Neck: supple, no JVD. Cardiovascular: heart has regular rate and rhythm, no murmur appreciated. Respiratory: respirations even and unlabored, lung sounds diminished but clear to auscultation bilaterally. No wheezing or rales. Abdomen: soft, mild tenderness on palpation of epigastric region, no masses appreciated, normoactive bowel sounds. Extremities: no clubbing, cyanosis or edema. Results Labs : 02/19/19 13:20 02/19/19 13:20 Laboratory Results - last 24 hr 02/19/19 02/19/19 02/19/19 13:20 13:20 13:20 WBC 6.90 RBC 4.71 Hgb 15.2 Hct 44.6 MCV 94.7 MCH 32.3 MCHC 34.1 RDW 12.5 Plt Count 257 MPV 10.5 Immature Gran % 0.3 Neutrophils % 65.3 Lymphocytes % 21.3 Monocytes % 9.6 Eosinophils % 2.9 Basophils % 0.6 Absolute Neutrophils 4.51 Absolute Lymphocytes 1.47 Absolute Monocytes 0.66 Absolute Eosinophils 0.20 Absolute Basophils 0.04 Sodium 138 Potassium 4.3 Chloride 102 Carbon Dioxide 26.2 Anion Gap 9.8 BUN 17 Creatinine 1.12 Estimated GFR/1.73 m2 >= 60.00 Glucose 122 H Calcium 9.4 Magnesium 2.0 Total Bilirubin 0.3 AST 19 ALT 27 Alkaline Phosphatase 60 Total Protein 7.6 Albumin 4.3 Lipase 67 L Urine Color Urine Clarity Urine pH Ur Specific [place] Urine Protein Urine Ketones Urine Blood Urine Nitrite Urine Bilirubin Urine Urobilinogen Ur Leukocyte Esterase Urine Glucose [place] 02/19/19 02/19/19 13:20 14:45 WBC RBC Hgb Hct MCV MCH MCHC RDW Plt Count MPV Immature Gran % Neutrophils % Lymphocytes % Monocytes % Eosinophils % Basophils % Absolute Neutrophils Absolute Lymphocytes Absolute Monocytes Absolute Eosinophils Absolute Basophils Sodium Potassium Chloride Carbon Dioxide Anion Gap BUN Creatinine Estimated GFR/1.73 m2 Glucose Calcium Magnesium Total Bilirubin AST ALT Alkaline Phosphatase Total Protein Albumin Lipase Urine Color Yellow Urine Clarity Clear Urine pH 7.0 Ur Specific [place] 1.015 Urine Protein Negative Urine Ketones Negative Urine Blood Negative Urine Nitrite Negative Urine Bilirubin Negative Urine Urobilinogen 0.2 Ur Leukocyte Esterase Negative Urine Glucose Negative [place] 1.96 H Last Vital Signs Temp 36.6 C 02/19/19 15:59 Pulse 78 02/19/19 16:26 Resp 16 02/19/19 15:59 BP 137/86 02/19/19 15:59 Pulse Ox 98 02/19/19 15:59
[2019-02-19] MEDS: Nystatin 500000 UNITS/5 ML SUSP 5ML CUP PO ×2 (17:08→21:15)
[2019-02-19] MEDS: Pantoprazole 40 MG VIAL IVP (17:11)
[2019-02-19] MEDS: Normal Saline Flush 10 ML SYR IVP (19:57)
[2019-02-19] MEDS: LORazepam 0.5 MG TAB PO (21:15)
[2019-02-20] MEDS: Nystatin 500000 UNITS/5 ML SUSP 5ML CUP PO ×2 (05:09→10:04)
[2019-02-20] MEDS: Normal Saline 1,000 ML 150 ML IV (05:09)
[2019-02-20 07:03] VITALS: PULSE 57
[2019-02-20 07:15] VITALS: BP 133/77; PULSE 62; RESP 18; TEMP 37.1; O2SAT 97
[2019-02-20 07:23] LABS: Abs Immature Grans 0.01 k/cumm (0.0-0.09); Absolute Basophil Count 0.04 k/cumm (0.0-0.2); Absolute Eosinophil Count 0.22 k/cumm (0.0-0.7); Absolute Lymphocyte Count 1.87 k/cumm (1.2-3.4); Absolute Monocyte Count 0.53 k/cumm (0.11-0.7); Basophils % 0.7; Eosinophils % 4.1; HCT 37.6 % (40.0-50.0); HGB 12.9 g/dL (13.5-17.5); Immature Grans % 0.2; Lymphocytes % 34.8; Mean Corp. HGB Concentration 34.3 g/dL (32.0-36.0); Mean Corpuscular Hemoglobin 32.7 pg (27.0-33.0); Mean Corpuscular Volume 95.2 fL (80-95); Mean Platelet Volume 10.4 fL (8.0-11.0); Monocytes % 9.9; Neutrophils % 50.3; Platelet Count 206 x1000/uL (130-400); RBC 3.95 m/cumm (4.50-6.00); RBC Distribution Width 12.4 % (11.8-14.1); White Blood Cell Count 5.37 k/cumm (4.4-10.8)
[2019-02-20 07:40] LABS: Anion Gap 7.5 mmol/L (3-11); BUN 13 mg/dL (7-18); CO2 23.5 mmol/L (21.0-32.0); CREATININE 0.92 mg/dL (0.70-1.30); Calcium 8.4 mg/dL (8.5-10.1); Chloride 110 mmol/L (98-107); Glucose 101 mg/dL (70-100); Lithium 0.41 mmol/L (0.60-1.20); Potassium 4.5 mmol/L (3.5-5.1); Sodium 141 mmol/L (136-145)
[2019-02-20 07:51] LABS: Magnesium 1.8 mg/dL (1.8-2.4); TSH 2.81 uIU/mL (0.358-3.74)
--- NOTE | 2019-02-20 08:44 | PDOC.CMIN ---
- If Service Date Differs Date of service: 02/20/19 Time of Service: 08:45 Care Management Initial Assess REASON FOR HOSPITALIZATION:: [place] Toxicity PAST MEDICAL HISTORY/PAST SURGICAL HISTORY:: Anxiety (Chronic). Bipolar disorder (Chronic). Depression (Chronic) PREVIOUS FUNCTIONAL STATUS/SOCIAL/FAMILY SUPPORTS:: Naveed resides in [facility] with his Cris whom he has been to for 7 years. Naveed reports that he works for [employer] in [facility] and that his boss is very supportive and drives him to work daily. Naveed has three children whom he states do not reside locally and that he does not have a relationship. Naveed is independent at baseline and manages ADL's CURRENT FUNCTIONAL STATUS:: Currrently Naveed is lying in bed watching TV. He is receptive and easily engages in discussion. ADVANCE DIRECTIVES:: None on file Has patient been provided with information about the portal?: Yes Did the patient sign up for the portal?: No CODE STATUS:: Full Code INSURANCE COVERAGE / FINANCIAL ISSUES:: JOSE F CURRENT HOME/COMMUNITY SERVICES/EQUIPMENT:: Currently Naveed receives services through [facility]. He sees Lenore Mckinnon, and his therapist is Iliana whom he sees weekly. PRIMARY CARE PHYSICIAN:: Dr Shelton POTENTIAL DISCHARGE NEEDS:: F/U appointment with PCP. F/U appointment with Lenore Mckinnon 02/26/19 @ [id number]. PATIENT/FAMILY EDUCATION NEEDS:: Review DC instructions, any limitations, and ongoing DC planning discussion. Discuss ?Ask Me Three? ANTICIPATED BARRIERS TO DISCHARGE:: None identified at this time. TRANSPORTATION:: Via [facility] PLAN:: Naveed will return home with continued support through [facility]. He will F/U with PCP, Lenore Mckinnon, and Therapist Lenore once medically cleared. Naveed will transport via [facility] when ready.
--- NOTE | 2019-02-20 08:59 | INITIAL_ITS ---
- If Service Date Differs Date of service: 02/20/19 Time of Service: 08:45 Care Management Initial Assess REASON FOR HOSPITALIZATION:: [place] Toxicity PAST MEDICAL HISTORY/PAST SURGICAL HISTORY:: Anxiety (Chronic). Bipolar disorder (Chronic). Depression (Chronic) PREVIOUS FUNCTIONAL STATUS/SOCIAL/FAMILY SUPPORTS:: Naveed resides in [facility] with his Cris whom he has been to for 7 years. Naveed reports that he works for [employer] in [facility] and that his boss is very supportive and drives him to work daily. Naveed has three children whom he states do not reside locally and that he does not have a relationship. Naveed is independent at baseline and manages ADL's CURRENT FUNCTIONAL STATUS:: Currrently Naveed is lying in bed watching TV. He is receptive and easily engages in discussion. ADVANCE DIRECTIVES:: None on file Has patient been provided with information about the portal?: Yes Did the patient sign up for the portal?: No CODE STATUS:: Full Code INSURANCE COVERAGE / FINANCIAL ISSUES:: JOSE F CURRENT HOME/COMMUNITY SERVICES/EQUIPMENT:: Currently Naveed receives services through [facility]. He sees Lenore Mckinnon, and his therapist is Iliana whom he sees weekly. PRIMARY CARE PHYSICIAN:: Dr Shelton POTENTIAL DISCHARGE NEEDS:: F/U appointment with PCP. F/U appointment with Lenore Mckinnon 02/26/19 @ [id number]. PATIENT/FAMILY EDUCATION NEEDS:: Review DC instructions, any limitations, and ongoing DC planning discussion. Discuss ?Ask Me Three? ANTICIPATED BARRIERS TO DISCHARGE:: None identified at this time. TRANSPORTATION:: Via [facility] PLAN:: Naveed will return home with continued support through [facility]. He will F/U with PCP, Lenore Mckinnon, and Therapist Lenore once medically cleared. Naveed will transport via [facility] when ready.
[2019-02-20 09:00] VITALS: PULSE 69
--- NOTE | 2019-02-20 09:33 | NUR.NOTE ---
Nursing Note: 0915: called and spoke with Nieves at [facility] ([facility]) in [facility] to confirm pt's lithium dosing. per pharmacy, pt received 450mg caps which pt takes 2 tabs at HS (total dose 900 mg), x 90 day supply on 01/22/19.
[2019-02-20 11:10] VITALS: BP 142/83; PULSE 70; RESP 20; TEMP 37.5; O2SAT 98
--- NOTE | 2019-02-20 12:22 | W.PM.DS.N ---
Date of service: 02/20/19 Time of Service: 12:23 DS: Diagnosis Discharge Diagnosis (1) [place] toxicity: Status: Acute (2) Bipolar disorder: Status: Chronic (3) Depression: Status: Chronic (4) Anxiety: Status: Chronic (5) Lesion of tongue: Status: Acute (6) Bed bug bite: Status: Acute Discharge Plan Disposition Patient Disposition: HOME Condition: Improving Discharge Details Reason For Visit: LITHIUM TOXICITY Admit Date/Time: 02/19/19 15:07 Admit Provider: Enzo Nobles Attending Provider: Enzo Nobles Primary Care Provider: Ankur Shelton [facility] Hospital Course: Naveed Uribe is a 43 year old male with a past medical history significant for anxiety, depression and bipolar for which he has previously been taking lithium. He presented to the ED yesterday with reports of nausea and vomiting with associated epigastric discomfort which began 2 days prior. He missed his lithium dose the night prior to his presentation. 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 He also takes aleve (although he is advised not to by his lithium prescriber) and reported taking 6 tablets yesterday morning. He also reported acid reflux. He had labs drawn in the ED which did not show leukocytosis, his renal function was normal, however, he had an elevated lithium level at 1.96 (normal range 0.6-1.2). He appeared mildly dehydrated and was initiated on IV fluids. Due to the elevated lithium level with GI symptoms, he was admitted to the med/surg floor for further evaluation and treatment. He received IV fluids overnight. His symptoms resolved. He was monitored on telemetry overnight with no QTc prolongation noted. His lithium dose was held. His lithium level the following day was low at 0.41. His case was discussed with his mental health provider at [facility], Sharon Mckinnon NP, who had ongoing concerns related him taking NSAIDS when advised not to with lithium. Her recommendation was to stop the lithium and begin Latuda 20 mg daily. She will provide the patient with a prescription for Latuda as well as samples. She requested that we give him his first dose with his lunch today. He will receive this prior to his discharge. At the time of his discharge home, he is no longer experiencing nausea, he is eating and drinking and tolerating his diet. He is looking forward to changing medications, he was hoping to get off of lithium. He is advised to take NSAIDS only as recommended. He has follow up scheduled with Sharon Mckinnon NP [facility] next week. He was noted on exam to have white patches on his tongue, concerning for thrush vs other. He will complete a course of nystatin swish and swallow and will need to follow up with his PCP to verify that it has cleared. He will follow up with his PCP as scheduled. Home Meds and New Rx's Prescriptions: New Latuda 40 mg Tablet 20 mg PO DAILY Qty: 0 RF: 0 omeprazole 20 mg tablet,delayed release (DR/EC) 20 mg PO DAILY Qty: 14 RF: 0 nystatin 100,000 unit/mL Suspension 500,000 units PO 5X/DAY 7 Days Qty: 175 RF: 0 Discontinued lithium carbonate 300 MG tablet extended release 900 mg PO DAILY RF: 0 Discharge Instructions Instructions: Gastroesophageal Reflux Disease (DC), Safe Use of NSAIDs (DC), [place] Toxicity (DC) Additional Instructions: Take Aleve only as recommended, too much can harm your kidneys. Sharon Mckinnon is prescribing you Latuda to begin tomorrow. She has samples for you at [facility] to be picked up today. Stop taking lithium. Follow up with Sharon next Monday as scheduled. Call your PCP office tomorrow to schedule a follow up appointment. Stand Alone Forms: Nursing Discharge Form Referrals: Sharon Mckinnon [NURSE PRACTITIONER] - (Follow up Monday02/26/19 at 2:30 pm as scheduled.) Ankur Shelton MD [Primary Care Provider] - Activity:: Activity as Tolerated Equipment/Supplies:: No Equipment Needed Diet:: As Tolerated Discharge Orders Discharge Orders: Discharge Order (Routine); Ordered 02/20/19 Ordered By: Carmen Enrique Exam Narrative Exam Narrative: General: awake, alert and oriented, sitting up in bed in NAD. Skin: bed bug bites noted on abdomen primarily to right side. HEENT: edentulous, mucous membranes moist, tongue with white patches. Neck: supple, no JVD. Cardiovascular: heart has regular rate and rhythm, no murmur appreciated. Respiratory: respirations even and unlabored, lung sounds diminished but clear to auscultation bilaterally. No wheezing or rales. Abdomen: soft, mild tenderness on palpation of epigastric region, no masses appreciated, normoactive bowel sounds. Extremities: no clubbing, cyanosis or edema. DS: Data Vitals/I&O Vitals and I&O: Vital Signs Temperature 37.5 C 02/20/19 11:10 Temperature Source Tympanic 02/20/19 11:10 Pulse 70 02/20/19 11:10 Pulse Rhythm Regular 02/20/19 08:39 Respiratory Rate 20 02/20/19 11:10 Respiratory Effort Non-Labored 02/20/19 08:39 Respiratory Depth Normal 02/20/19 08:39 Respiratory Pattern Normal 02/20/19 08:39 Blood Pressure 142/83 H 02/20/19 11:10 Blood Pressure Position Sitting 02/19/19 12:59 Pulse Oximetry 98 02/20/19 11:10 Oxygen Delivery Method Room Air 02/20/19 11:10 Oxygen Flow Rate 0 02/20/19 11:10 Pain Level 0 02/20/19 11:10 Comment 02/19/19 12:59 Intake & Output 02/19/19 02/20/19 02/20/19 23:59 11:59 23:59 Intake Total 1999 1952.5 / 1952.5 Balance 1999 1952.5 / 195.5 Weight 57.606 kg Intake: IV 1999 1712.5 / 1712.5 Oral 240 / 240 Other: Urine Color Yellow Urine Appearance Clear Clear Voiding Methods Urinal Labs on day of discharge: Labs from last 24 hours 02/20/19 02/20/19 02/20/19 06:55 06:55 06:55 WBC 5.37 RBC 3.95 L Hgb 12.9 L D Hct 37.6 L MCV 95.2 H MCH 32.7 MCHC 34.3 RDW 12.4 Plt Count 206 MPV 10.4 Immature Gran % 0.2 Neutrophils % 50.3 Lymphocytes % 34.8 Monocytes % 9.9 Eosinophils % 4.1 Basophils % 0.7 Absolute Neutrophils 2.70 Absolute Lymphocytes 1.87 Absolute Monocytes 0.53 Absolute Eosinophils 0.22 Absolute Basophils 0.04 Sodium 141 Potassium 4.5 Chloride 110 H Carbon Dioxide 23.5 Anion Gap 7.5 BUN 13 Creatinine 0.92 Estimated GFR/1.73 m2 >= 60.00 Glucose 101 H Calcium 8.4 L Magnesium Total Bilirubin AST ALT Alkaline Phosphatase Total Protein Albumin Lipase TSH Urine Color Urine Clarity Urine pH Ur Specific [place] Urine Protein Urine Ketones Urine Blood Urine Nitrite Urine Bilirubin Urine Urobilinogen Ur Leukocyte Esterase Urine Glucose [place] 0.41 L 02/20/19 02/19/19 02/19/19 06:55 14:45 13:20 WBC RBC Hgb Hct MCV MCH MCHC RDW Plt Count MPV Immature Gran % Neutrophils % Lymphocytes % Monocytes % Eosinophils % Basophils % Absolute Neutrophils Absolute Lymphocytes Absolute Monocytes Absolute Eosinophils Absolute Basophils Sodium Potassium Chloride Carbon Dioxide Anion Gap BUN Creatinine Estimated GFR/1.73 m2 Glucose Calcium Magnesium 1.8 Total Bilirubin AST ALT Alkaline Phosphatase Total Protein Albumin Lipase TSH 2.81 Urine Color Yellow Urine Clarity Clear Urine pH 7.0 Ur Specific [place] 1.015 Urine Protein Negative Urine Ketones Negative Urine Blood Negative Urine Nitrite Negative Urine Bilirubin Negative Urine Urobilinogen 0.2 Ur Leukocyte Esterase Negative Urine Glucose Negative [place] 1.96 H 02/19/19 02/19/19 02/19/19 13:20 13:20 13:20 WBC 6.90 RBC 4.71 Hgb 15.2 Hct 44.6 MCV 94.7 MCH 32.3 MCHC 34.1 RDW 12.5 Plt Count 257 MPV 10.5 Immature Gran % 0.3 Neutrophils % 65.3 Lymphocytes % 21.3 Monocytes % 9.6 Eosinophils % 2.9 Basophils % 0.6 Absolute Neutrophils 4.51 Absolute Lymphocytes 1.47 Absolute Monocytes 0.66 Absolute Eosinophils 0.20 Absolute Basophils 0.04 Sodium 138 Potassium 4.3 Chloride 102 Carbon Dioxide 26.2 Anion Gap 9.8 BUN 17 Creatinine 1.12 Estimated GFR/1.73 m2 >= 60.00 Glucose 122 H Calcium 9.4 Magnesium 2.0 Total Bilirubin 0.3 AST 19 ALT 27 Alkaline Phosphatase 60 Total Protein 7.6 Albumin 4.3 Lipase 67 L TSH Urine Color Urine Clarity Urine pH Ur Specific [place] Urine Protein Urine Ketones Urine Blood Urine Nitrite Urine Bilirubin Urine Urobilinogen Ur Leukocyte Esterase Urine Glucose [place] [facility] Medical History Anxiety (Chronic) Bipolar disorder (Chronic) Depression (Chronic) Social History Smoking/Tobacco Use Status: Former Tobacco Use Alcohol Intake: never Drug use: Occasionally Substance use type: marijuana Do you feel safe at home: Yes Do you feel safe in your relationship?: No
--- NOTE | 2019-02-20 12:30 | DSE_ITS ---
Date of service: 02/20/19 Time of Service: 12:23 DS: Diagnosis Discharge Diagnosis (1) [place] toxicity: Status: Acute (2) Bipolar disorder: Status: Chronic (3) Depression: Status: Chronic (4) Anxiety: Status: Chronic (5) Lesion of tongue: Status: Acute (6) Bed bug bite: Status: Acute Discharge Plan Disposition Patient Disposition: HOME Condition: Improving Discharge Details Reason For Visit: LITHIUM TOXICITY Admit Date/Time: 02/19/19 15:07 Admit Provider: Enzo Nobles Attending Provider: Enzo Nobles Primary Care Provider: Ankur Shelton [facility] Course Hospital Course: Naveed Uribe is a 43 year old male with a past medical history significant for anxiety, depression and bipolar for which he has previously been taking lithium. He presented to the ED yesterday with reports of nausea and vomiting with associated epigastric discomfort which began 2 days prior. He missed his lithium dose the night prior to his presentation. 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 He also takes aleve (although he is advised not to by his lithium prescriber) and reported taking 6 tablets yesterday morning. He also reported acid reflux. He had labs drawn in the ED which did not show leukocytosis, his renal function was normal, however, he had an elevated lithium level at 1.96 (normal range 0.6-1.2). He appeared mildly dehydrated and was initiated on IV fluids. Due to the elevated lithium level with GI symptoms, he was admitted to the med/surg floor for further evaluation and treatment. He received IV fluids overnight. His symptoms resolved. He was monitored on telemetry overnight with no QTc prolongation noted. His lithium dose was held. His lithium level the following day was low at 0.41. His case was discussed with his mental health provider at [facility] [place], Sharon Mckinnon NP, who had ongoing concerns related him taking NSAIDS when advised not to with lithium. Her recommendation was to stop the lithium and begin Latuda 20 mg daily. She will provide the patient with a prescription for Latuda as well as samples. She requested that we give him his first dose with his lunch today. He will receive this prior to his discharge. At the time of his discharge home, he is no longer experiencing nausea, he is eating and drinking and tolerating his diet. He is looking forward to changing medications, he was hoping to get off of lithium. He is advised to take NSAIDS only as recommended. He has follow up scheduled with Shraon Mckinnon NP [facility] next week. He was noted on exam to have white patches on his tongue, concerning for thrush vs other. He will complete a course of nystatin swish and swallow and will need to follow up with his PCP to verify that it has cleared. He will follow up with his PCP as scheduled. Home Meds and New Rx's Prescriptions: New Latuda 40 mg Tablet 20 mg PO DAILY Qty: 0 RF: 0 omeprazole 20 mg tablet,delayed release (DR/EC) 20 mg PO DAILY Qty: 14 RF: 0 nystatin 100,000 unit/mL Suspension 500,000 units PO 5X/DAY 7 Days Qty: 175 RF: 0 Discontinued lithium carbonate 300 MG tablet extended release 900 mg PO DAILY RF: 0 Discharge Instructions Instructions: Gastroesophageal Reflux Disease (DC), Safe Use of NSAIDs (DC), [place] Toxicity (DC) Additional Instructions: Take Aleve only as recommended, too much can harm your kidneys. Sharon Mckinnon is prescribing you Latuda to begin tomorrow. She has samples for you at [facility] [place] to be picked up today. Stop taking lithium. Follow up with Sharon next Monday as scheduled. Call your PCP office tomorrow to schedule a follow up appointment. Stand Alone Forms: Nursing Discharge Form Referrals: Sharon Mckinnon [NURSE PRACTITIONER] - (Follow up Monday02/26/19 at 2:30 pm as scheduled.) Ankur Shelton MD [Primary Care Provider] - Activity:: Activity as Tolerated Equipment/Supplies:: No Equipment Needed Diet:: As Tolerated Discharge Orders Discharge Orders: Discharge Order (Routine); Ordered 02/20/19 Ordered By: Carmen Enrique Exam Narrative Exam Narrative: General: awake, alert and oriented, sitting up in bed in NAD. Skin: bed bug bites noted on abdomen primarily to right side. HEENT: edentulous, mucous membranes moist, tongue with white patches. Neck: supple, no JVD. Cardiovascular: heart has regular rate and rhythm, no murmur appreciated. Respiratory: respirations even and unlabored, lung sounds diminished but clear to auscultation bilaterally. No wheezing or rales. Abdomen: soft, mild tenderness on palpation of epigastric region, no masses appreciated, normoactive bowel sounds. Extremities: no clubbing, cyanosis or edema. DS: Data Vitals/I&O Vitals and I&O: Vital Signs Temperature 37.5 C 02/20/19 11:10 Temperature Source Tympanic 02/20/19 11:10 Pulse 70 02/20/19 11:10 Pulse Rhythm Regular 02/20/19 08:39 Respiratory Rate 20 02/20/19 11:10 Respiratory Effort Non-Labored 02/20/19 08:39 Respiratory Depth Normal 02/20/19 08:39 Respiratory Pattern Normal 02/20/19 08:39 Blood Pressure 142/83 H 02/20/19 11:10 Blood Pressure Position Sitting 02/19/19 12:59 Pulse Oximetry 98 02/20/19 11:10 Oxygen Delivery Method Room Air 02/20/19 11:10 Oxygen Flow Rate 0 02/20/19 11:10 Pain Level 0 02/20/19 11:10 Comment 02/19/19 12:59 Intake & Output 02/19/19 02/20/19 02/20/19 23:59 11:59 23:59 Intake Total 1999 1952.5 / 1952.5 Balance 1999 1952.5 / 195.5 Weight 57.606 kg Intake: IV 1999 1712.5 / 1712.5 Oral 240 / 240 Other: Urine Color Yellow Urine Appearance Clear Clear Voiding Methods Urinal Labs on day of discharge: Labs from last 24 hours 02/20/19 02/20/19 02/20/19 06:55 06:55 06:55 WBC 5.37 RBC 3.95 L Hgb 12.9 L D Hct 37.6 L MCV 95.2 H MCH 32.7 MCHC 34.3 RDW 12.4 Plt Count 206 MPV 10.4 Immature Gran % 0.2 Neutrophils % 50.3 Lymphocytes % 34.8 Monocytes % 9.9 Eosinophils % 4.1 Basophils % 0.7 Absolute Neutrophils 2.70 Absolute Lymphocytes 1.87 Absolute Monocytes 0.53 Absolute Eosinophils 0.22 Absolute Basophils 0.04 Sodium 141 Potassium 4.5 Chloride 110 H Carbon Dioxide 23.5 Anion Gap 7.5 BUN 13 Creatinine 0.92 Estimated GFR/1.73 m2 >= 60.00 Glucose 101 H Calcium 8.4 L Magnesium Total Bilirubin AST ALT Alkaline Phosphatase Total Protein Albumin Lipase TSH Urine Color Urine Clarity Urine pH Ur Specific [place] Urine Protein Urine Ketones Urine Blood Urine Nitrite Urine Bilirubin Urine Urobilinogen Ur Leukocyte Esterase Urine Glucose [place] 0.41 L 02/20/19 02/19/19 02/19/19 06:55 14:45 13:20 WBC RBC Hgb Hct MCV MCH MCHC RDW Plt Count MPV Immature Gran % Neutrophils % Lymphocytes % Monocytes % Eosinophils % Basophils % Absolute Neutrophils Absolute Lymphocytes Absolute Monocytes Absolute Eosinophils Absolute Basophils Sodium Potassium Chloride Carbon Dioxide Anion Gap BUN Creatinine Estimated GFR/1.73 m2 Glucose Calcium Magnesium 1.8 Total Bilirubin AST ALT Alkaline Phosphatase Total Protein Albumin Lipase TSH 2.81 Urine Color Yellow Urine Clarity Clear Urine pH 7.0 Ur Specific [place] 1.015 Urine Protein Negative Urine Ketones Negative Urine Blood Negative Urine Nitrite Negative Urine Bilirubin Negative Urine Urobilinogen 0.2 Ur Leukocyte Esterase Negative Urine Glucose Negative [place] 1.96 H 02/19/19 02/19/19 02/19/19 13:20 13:20 13:20 WBC 6.90 RBC 4.71 Hgb 15.2 Hct 44.6 MCV 94.7 MCH 32.3 MCHC 34.1 RDW 12.5 Plt Count 257 MPV 10.5 Immature Gran % 0.3 Neutrophils % 65.3 Lymphocytes % 21.3 Monocytes % 9.6 Eosinophils % 2.9 Basophils % 0.6 Absolute Neutrophils 4.51 Absolute Lymphocytes 1.47 Absolute Monocytes 0.66 Absolute Eosinophils 0.20 Absolute Basophils 0.04 Sodium 138 Potassium 4.3 Chloride 102 Carbon Dioxide 26.2 Anion Gap 9.8 BUN 17 Creatinine 1.12 Estimated GFR/1.73 m2 >= 60.00 Glucose 122 H Calcium 9.4 Magnesium 2.0 Total Bilirubin 0.3 AST 19 ALT 27 Alkaline Phosphatase 60 Total Protein 7.6 Albumin 4.3 Lipase 67 L TSH Urine Color Urine Clarity Urine pH Ur Specific [place] Urine Protein Urine Ketones Urine Blood Urine Nitrite Urine Bilirubin Urine Urobilinogen Ur Leukocyte Esterase Urine Glucose [place] [facility] Medical History Anxiety (Chronic) Bipolar disorder (Chronic) Depression (Chronic) Social History Smoking/Tobacco Use Status: Former Tobacco Use Alcohol Intake: never Drug use: Occasionally Substance use type: marijuana Do you feel safe at home: Yes Do you feel safe in your relationship?: No
[2019-02-20] MEDS: Lurasidone 40 MG TAB 20 MG PO (12:47)
== END 2019-02-20 13:34 | disposition home or self-care (01) ==
LOC: ER 15:25 → MS 15:41
PROVIDERS: Nurse Practitioner; Admitting Provider Internal Medicine; Emergency Provider Nurse Practitioner Family; PCP General Practice; Visit Provider Internal Medicine
DX: T43.591A Poisoning by other antipsychotics and neuroleptics, accidental (unintentional), initial encounter (principal); R11.2 Nausea with vomiting, unspecified; R10.13 Epigastric pain; E86.0 Dehydration; Z91.14 Patient's other noncompliance with medication regimen; F31.9 Bipolar disorder, unspecified; F41.8 Other specified anxiety disorders; K14.8 Other diseases of tongue; S30.861A Insect bite (nonvenomous) of abdominal wall, initial encounter; W57.XXXA Bitten or stung by nonvenomous insect and other nonvenomous arthropods, initial encounter; Y92.009 Unspecified place in unspecified non-institutional (private) residence as the place of occurrence of the external cause
CPT/HCPCS: 36415; 80048; 80053; 83690; 93005; 96361; 96374; 99219; 99239; 99285; J1650; 80178; 81003; 83735; 84443; 85025; 93010; 99217; G0378; J2405

== ENCOUNTER 2019-03-28 14:05 | Emergency (ER) | payer MEDICAID, SELFPAY ==
[2019-03-28] VITALS (38 sets, daily range): BP systolic 108–130; BP diastolic 70–85; PULSE 54–85; RESP 7–28; TEMP 36.8; O2SAT 93–99
[2019-03-28] MEDS: EPINEPHrine 0.3 MG KIT IM (14:15)
[2019-03-28] MEDS: diphenhydrAMINE 50 MG/ML VIAL IVP (14:25)
[2019-03-28] MEDS: FAMOTIDINE 20 MG/50 ML BAG 200 MG IVPB (14:29)
[2019-03-28] MEDS: methylPREDNISolone SUCC 125 MG VIAL IVP (14:29)
--- NOTE | 2019-03-28 14:29 | W.ED.GENAD ---
Discharge Plan Disposition Patient Disposition: HOME Discharge Details Chief Complaint: Allergic Clinical Impression: Allergic reaction Primary Care Provider: Ankur Shelton ED Provider: Yohannes Chapman Home Meds and New Rx's Prescriptions: New prednisone 20 mg tablet 40 mg PO DAILY Qty: 8 RF: 0 Continued omeprazole 20 mg tablet,delayed release (DR/EC) 20 mg PO DAILY Qty: 14 RF: 0 Discontinued Latuda 40 mg Tablet 20 mg PO DAILY Qty: 0 RF: 0 Discharge Instructions Instructions: Urticaria (ED), General Allergic Reaction (ED) Additional Instructions: Stop taking Latuda. Please use Benadryl 25 mg every 8 hours for the next few days to help with itching and allergic reaction. Take prednisone as prescribed. Your next dose is tomorrow 03/29/2019. Please contact your primary care physician to arrange follow-up. Return to the ER for any worsening or new concerning symptoms. Referrals: Ankur Shelton MD [Primary Care Provider] - Discharge Data Discharge Date/Time-TO BE ENTERED AT DEPARTURE: 03/28/19 18:06 Medical Decision Making 1434: 43-year-old male presents with full body hives worsening over the past couple days and now shortness of breath. Concern for anaphylactic reaction. Patient is saturating well, normotensive and not tachycardic. Patient attributes allergic reaction to Latuda. Unclear if this is the inciting agent. Plan to treat with epinephrine 0.3 mg IM, Solu-Medrol 125 mg IV, Benadryl 50 mg IV Pepcid 20 mg IV. Will reassess. -- Patient reassessed and hives nearly resolved. Feels much better. No SOB. No oropharangeal swelling. Patient advised to stop using latuda and call PCP tomorrow to discuss medication changes. Usual and customary discharge instructions were provided. HPI General Mode of arrival: ambulatory. Date/Time Provider Initiated Documentation: 03/28/19 14:06. Limitations to Documentation: no limitations. Information obtained by: patient. HPI Narrative: 43-year-old male presents with chief complaint of rash. Patient notes rash started a couple days ago and has worsened. Rash is red and itchy involving his full body. Symptoms are severe with no modifiers. Patient attributes the rash to allergic reaction to Latuda which was recently increased dosing. He has associated shortness of breath that is new today. No tongue or lip swelling. Patient denies new detergents, fragrances or foods. Related Data Home Medications Medication Instructions Recorded Confirmed omeprazole 20 mg PO DAILY #14 tab 02/20/19 prednisone 40 mg PO DAILY #8 tab 03/28/19 Previous Rx's Medication Instructions Recorded omeprazole 20 mg PO DAILY #14 tab 02/20/19 prednisone 40 mg PO DAILY #8 tab 03/28/19 Allergies Allergy/AdvReac Type Severity Reaction Status Date / Time fluoxetine HCl [From Prozac] Allergy Severe Hives Unverified 02/19/19 13:04 General Stated Complaint: Allergic FELIZ: 2 Review of Systems Review of Systems All systems reviewed & are unremarkable except as noted in HPI and below ENT Denies throat swelling and Denies tongue swelling Cardiovascular Reports dyspnea Respiratory Reports dyspnea Gastrointestinal Denies nausea Integumentary/Breasts Reports as per HPI Allergic/Immunologic Denies throat swelling and Denies tongue swelling PFSH Medical History Anxiety (Chronic) Bipolar disorder (Chronic) Depression (Chronic) Social History Smoking/Tobacco Use Status: Former Tobacco Use Alcohol Intake: never Drug use: Occasionally Substance use type: marijuana Do you feel safe at home: Yes Do you feel safe in your relationship?: No Exam Const General: cooperative and not diaphoretic HENMT Head: normocephalic Mouth: moist mucous membranes Throat: posterior oropharynx normal Eyes Conjunctivae: normal conjunctivae Neck Neck: trachea midline and supple Resp Auscultation: clear to auscultation bilaterally, no rales, no rhonchi and no wheezes Cardio Jugular venous pressure: no JVD Rate: regular rate and not tachycardic Rhythm: regular rhythm GI Palpation: soft, not firm, no guarding, no masses, not rigid and nontender Skin Rashes: rashes noted (Full body hives) Neuro General: alert, awake and tone normal Extrem General: no edema Psych Appearance: grossly normal Course Vital Signs Temperature 36.8 C 03/28/19 14:13 Pulse 67 03/28/19 14:13 Respiratory Rate 03/28/19 14:13 Blood Pressure 112/76 03/28/19 14:13 Pulse Oximetry 96 03/28/19 14:13 Temperature 36.8 C 03/28/19 14:13 Temperature Source Temporal Artery Scan 03/28/19 14:13 Pulse 67 03/28/19 14:13 Respiratory Rate 19 03/28/19 14:13 Blood Pressure 112/76 03/28/19 14:13 Blood Pressure Position Sitting 03/28/19 14:13 Pulse Oximetry 96 03/28/19 14:13 Oxygen Delivery Method Room Air 03/28/19 14:13 Oxygen Flow Rate 0 03/28/19 14:13 Critical Care Time Critical Care Time: Yes Total Critical Care Time: 40 Attestation: Upon my evaluation, this patient had a high probability of imminent or life-threatening deterioration, which required my direct attention, intervention, and personal management. I have personally provided >40 minutes of critical care time exclusive of time spent on separately billable procedures. Time includes review of laboratory data, radiology results, discussion with consultants, and monitoring for potential decompensation. Interventions were performed as documented above.
--- NOTE | 2019-03-28 14:35 | ED.GENADUL_ITS ---
Discharge Plan Disposition Patient Disposition: HOME Discharge Details Chief Complaint: Allergic Clinical Impression: Allergic reaction Primary Care Provider: Ankur Shelton ED Provider: Yohannes Chapman Home Meds and New Rx's Prescriptions: New prednisone 20 mg tablet 40 mg PO DAILY Qty: 8 RF: 0 Continued omeprazole 20 mg tablet,delayed release (DR/EC) 20 mg PO DAILY Qty: 14 RF: 0 Discontinued Latuda 40 mg Tablet 20 mg PO DAILY Qty: 0 RF: 0 Discharge Instructions Instructions: Urticaria (ED), General Allergic Reaction (ED) Additional Instructions: Stop taking Latuda. Please use Benadryl 25 mg every 8 hours for the next few days to help with itching and allergic reaction. Take prednisone as prescribed. Your next dose is tomorrow 03/29/2019. Please contact your primary care physician to arrange follow-up. Return to the ER for any worsening or new concerning symptoms. Referrals: Ankur Shelton MD [Primary Care Provider] - Discharge Data Discharge Date/Time-TO BE ENTERED AT DEPARTURE: 03/28/19 18:06 Medical Decision Making 1434: 43-year-old male presents with full body hives worsening over the past couple days and now shortness of breath. Concern for anaphylactic reaction. Patient is saturating well, normotensive and not tachycardic. Patient attributes allergic reaction to Latuda. Unclear if this is the inciting agent. Plan to treat with epinephrine 0.3 mg IM, Solu-Medrol 125 mg IV, Benadryl 50 mg IV Pepcid 20 mg IV. Will reassess. -- Patient reassessed and hives nearly resolved. Feels much better. No SOB. No oropharangeal swelling. Patient advised to stop using latuda and call PCP tomorrow to discuss medication changes. Usual and customary discharge instructions were provided. HPI General Mode of arrival: ambulatory . Date/Time Provider Initiated Documentation: 03/28/19 14:06 . Limitations to Documentation: no limitations . Information obtained by: patient . HPI Narrative: 43-year-old male presents with chief complaint of rash. Patient notes rash started a couple days ago and has worsened. Rash is red and itchy involving his full body. Symptoms are severe with no modifiers. Patient attributes the rash to allergic reaction to Latuda which was recently increased dosing. He has associated shortness of breath that is new today. No tongue or lip swelling. Patient denies new detergents, fragrances or foods. Related Data Home Medications Medication Instructions Recorded Confirmed omeprazole 20 mg PO DAILY #14 tab 02/20/19 prednisone 40 mg PO DAILY #8 tab 03/28/19 Previous Rx's Medication Instructions Recorded omeprazole 20 mg PO DAILY #14 tab 02/20/19 prednisone 40 mg PO DAILY #8 tab 03/28/19 Allergies Allergy/AdvReac Type Severity Reaction Status Date / Time fluoxetine HCl [From Prozac] Allergy Severe Hives Unverified 02/19/19 13:04 General Stated Complaint: Allergic FELIZ: 2 Review of Systems Review of Systems All systems reviewed & are unremarkable except as noted in HPI and below ENT Denies throat swelling and Denies tongue swelling Cardiovascular Reports dyspnea Respiratory Reports dyspnea Gastrointestinal Denies nausea Integumentary/Breasts Reports as per HPI Allergic/Immunologic Denies throat swelling and Denies tongue swelling PFSH Medical History Anxiety (Chronic) Bipolar disorder (Chronic) Depression (Chronic) Social History Smoking/Tobacco Use Status: Former Tobacco Use Alcohol Intake: never Drug use: Occasionally Substance use type: marijuana Do you feel safe at home: Yes Do you feel safe in your relationship?: No Exam Const General: cooperative and not diaphoretic HENMT Head: normocephalic Mouth: moist mucous membranes Throat: posterior oropharynx normal Eyes Conjunctivae: normal conjunctivae Neck Neck: trachea midline and supple Resp Auscultation: clear to auscultation bilaterally, no rales, no rhonchi and no w heezes Cardio Jugular venous pressure: no JVD Rate: regular rate and not tachycardic Rhythm: regular rhythm GI Palpation: soft, not firm, no guarding, no masses, not rigid and nontender Skin Rashes: rashes noted (Full body hives) Neuro General: alert, awake and tone normal Extrem General: no edema Psych Appearance: grossly normal Course Vital Signs Temperature 36.8 C 03/28/19 14:13 Pulse 67 03/28/19 14:13 Respiratory Rate 03/28/19 14:13 Blood Pressure 112/76 03/28/19 14:13 Pulse Oximetry 96 03/28/19 14:13 Temperature 36.8 C 03/28/19 14:13 Temperature Source Temporal Artery Scan 03/28/19 14:13 Pulse 67 03/28/19 14:13 Respiratory Rate 19 03/28/19 14:13 Blood Pressure 112/76 03/28/19 14:13 Blood Pressure Position Sitting 03/28/19 14:13 Pulse Oximetry 96 03/28/19 14:13 Oxygen Delivery Method Room Air 03/28/19 14:13 Oxygen Flow Rate 0 03/28/19 14:13 Critical Care Time Critical Care Time: Yes Total Critical Care Time: 40 Attestation: Upon my evaluation, this patient had a high probability of imminent or life-threatening deterioration, which required my direct attention, intervention, and personal management. I have personally provided >40 minutes of critical care time exclusive of time spent on separately billable procedures. Time includes review of laboratory data, radiology results, discussion with consultants, and monitoring for potential decompensation. Interventions were performed as documented above.
--- NOTE | 2019-03-28 15:15 | NUR.NOTE ---
Nursing Note: pt resting in bed, no signs of distress. Visible improvement in hives
--- NOTE | 2019-03-28 16:36 | NUR.NOTE ---
Nursing Note: pt resting in stretcher, no signs of distress. Eyes closed, facial expression relaxed
== END 2019-03-28 18:06 | disposition home or self-care (01) ==
PROVIDERS: Emergency Provider Student in an Organized Health Care Education/Training Program; PCP General Practice
DX: L50.0 Allergic urticaria (principal); R06.02 Shortness of breath
CPT/HCPCS: 96365; 96372; 96375; 99284; J0171; J2930

== ENCOUNTER 2019-03-30 00:03 | Emergency (ER) | payer MEDICAID, SELFPAY ==
[2019-03-30 00:05] VITALS: BP 132/95; PULSE 60; RESP 18; TEMP 36.6; O2SAT 96
--- NOTE | 2019-03-30 00:06 | W.ED.GENAD ---
Discharge Plan Disposition Patient Disposition: HOME Condition: Good Discharge Details Chief Complaint: Allergic Clinical Impression: Allergic reaction, urticaria Primary Care Provider: Ankur Shelton ED Provider: Sriram Champion [facility] Meds and New Rx's Prescriptions: Continued omeprazole 20 mg tablet,delayed release (DR/EC) 20 mg PO DAILY Qty: 14 RF: 0 prednisone 20 mg tablet 40 mg PO DAILY Qty: 8 RF: 0 Discharge Instructions Instructions: Urticaria (ED) Additional Instructions: It is important to take Benadryl (diphenhydramine) 1 to 2 tablets every 6 hours for the next few days to keep the hives under control. Continue the prednisone as previously prescribed. Follow-up with your primary care next week. Return to the ED for any worsening allergic reaction symptoms including difficulty breathing, throat swelling, vomiting, lightheadedness/fainting. Referrals: Ankur Shelton MD [Primary Care Provider] - Medical Decision Making Patient here with recurrent hives likely because of no Benadryl use during the day. No evidence of anaphylaxis currently. Symptoms already resolving after IV Benadryl. He did take the prednisone tonight. Discussed the need for using Benadryl for the next few days to keep the hives controlled. Suggested getting diphenhydramine from the [employer] store and taking 1 to 2 tablets every 6 hours for the next few days. Watch for a little bit prior to discharge. Follow-up with primary care next week. Return to ED for any worsening symptoms. HPI General Mode of arrival: EMS. Date/Time Provider Initiated Documentation: 03/30/19 00:31. Limitations to Documentation: no limitations. Information obtained by: patient, EMS and old records reviewed. HPI Narrative: Patient presents to ED by EMS with allergic reaction/hives. Patient was seen yesterday for similar presentation although he had some shortness of breath then. He was treated with epinephrine, Benadryl, Solu-Medrol. He was discharged with instructions to use Benadryl and prednisone. He redeveloped hives earlier today. They worsened over time. Tonight they were actually painful because they itched so much. While he did fill the prednisone and took that tonight, he has not taken any more Benadryl. EMS established an IV and gave him 50 mg of Benadryl IV. Related Data Home Medications Medication Instructions Recorded Confirmed omeprazole 20 mg PO DAILY #14 tab 05/15/19 prednisone 40 mg PO DAILY #8 tab 03/28/19 Previous Rx's Medication Instructions Recorded omeprazole 20 mg PO DAILY #14 tab 02/20/19 prednisone 40 mg PO DAILY #8 tab 03/28/19 Allergies Allergy/AdvReac Type Severity Reaction Status Date / Time fluoxetine HCl [From Prozac] Allergy Severe Hives Unverified 02/19/19 13:04 General FELIZ: 2 Review of Systems Review of Systems As documented in HPI otherwise negative as below. Const: no fever, chills, weakness Resp: no cough, SOB, pleuritic pain CV: no CP, diaphoresis, edema, syncope GI: no abdominal pain, nausea, vomiting, diarrhea Neuro: no headache, numbness, focal weakness, confusion PFSH Medical History Anxiety (Chronic) Bipolar disorder (Chronic) Depression (Chronic) Social History Smoking/Tobacco Use Status: Former Tobacco Use Alcohol Intake: never Drug use: Occasionally Substance use type: marijuana Do you feel safe at home: Yes Do you feel safe in your relationship?: No Exam Narrative Exam Narrative: Vitals: Afebrile. Normal vitals except mild high blood pressure. Const: WDWN male in NAD. HEENT: NC/AT. Normal facial exam. Normal oropharynx. No edema noted. Eyes: Normal conjunctiva and sclera. Neck: Supple. Trachea midline. Lungs: Normal respiratory effort. Lungs are clear. No wheezing. Cor: RRR without murmur/gallop. Good radial pulses. Neuro: A+O x 3. CN grossly in tact. Good strength and no focal deficit. Ext: No C/C/E. No deformity or tenderness. Skin: Warm and dry with diffuse hives.
--- NOTE | 2019-03-30 00:13 | ED.GENADUL_ITS ---
Discharge Plan Disposition Patient Disposition: HOME Condition: Good Discharge Details Chief Complaint: Allergic Clinical Impression: Allergic reaction, urticaria Primary Care Provider: Ankur Shelton ED Provider: Sriram Champion [place] Meds and New Rx's Prescriptions: Continued omeprazole 20 mg tablet,delayed release (DR/EC) 20 mg PO DAILY Qty: 14 RF: 0 prednisone 20 mg tablet 40 mg PO DAILY Qty: 8 RF: 0 Discharge Instructions Instructions: Urticaria (ED) Additional Instructions: It is important to take Benadryl (diphenhydramine) 1 to 2 tablets every 6 hours for the next few days to keep the hives under control. Continue the prednisone as previously prescribed. Follow-up with your primary care next week. Return to the ED for any worsening allergic reaction symptoms including difficulty breathing, throat swelling, vomiting, lightheadedness/fainting. Referrals: Ankur Shelton MD [Primary Care Provider] - Medical Decision Making Patient here with recurrent hives likely because of no Benadryl use during the day. No evidence of anaphylaxis currently. Symptoms already resolving after IV Benadryl. He did take the prednisone tonight. Discussed the need for using Benadryl for the next few days to keep the hives controlled. Suggested getting diphenhydramine from the [employer] store and taking 1 to 2 tablets every 6 hours for the next few days. Watch for a little bit prior to discharge. Follow-up with primary care next week. Return to ED for any worsening symptoms. HPI General Mode of arrival: EMS . Date/Time Provider Initiated Documentation: 03/30/19 00:31 . Limitations to Documentation: no limitations . Information obtained by: patient, EMS and old records reviewed . HPI Narrative: Patient presents to ED by EMS with allergic reaction/hives. Patient was seen yesterday for similar presentation although he had some shortness of breath then. He was treated with epinephrine, Benadryl, Solu-Medrol. He was discharged with instructions to use Benadryl and prednisone. He redeveloped hives earlier today. They worsened over time. Tonight they were actually painful because they itched so much. While he did fill the prednisone and took that tonight, he has not taken any more Benadryl. EMS established an IV and gave him 50 mg of Benadryl IV. Related Data Home Medications Medication Instructions Recorded Confirmed omeprazole 20 mg PO DAILY #14 tab 05/15/19 prednisone 40 mg PO DAILY #8 tab 03/28/19 Previous Rx's Medication Instructions Recorded omeprazole 20 mg PO DAILY #14 tab 02/20/19 prednisone 40 mg PO DAILY #8 tab 03/28/19 Allergies Allergy/AdvReac Type Severity Reaction Status Date / Time fluoxetine HCl [From Prozac] Allergy Severe Hives Unverified 02/19/19 13:04 General FELIZ: 2 Review of Systems Review of Systems As documented in HPI otherwise negative as below. Const: no fever, chills, weakness Resp: no cough, SOB, pleuritic pain CV: no CP, diaphoresis, edema, syncope GI: no abdominal pain, nausea, vomiting, diarrhea Neuro: no headache, numbness, focal weakness, confusion PFSH Medical History Anxiety (Chronic) Bipolar disorder (Chronic) Depression (Chronic) Social History Smoking/Tobacco Use Status: Former Tobacco Use Alcohol Intake: never Drug use: Occasionally Substance use type: marijuana Do you feel safe at home: Yes Do you feel safe in your relationship?: No Exam Narrative Exam Narrative: Vitals: Afebrile. Normal vitals except mild high blood pressure. Const: WDWN male in NAD. HEENT: NC/AT. Normal facial exam. Normal oropharynx. No edema noted. Eyes: Normal conjunctiva and sclera. Neck: Supple. Trachea midline. Lungs: Normal respiratory effort. Lungs are clear. No wheezing. Cor: RRR without murmur/gallop. Good radial pulses. Neuro: A+O x 3. CN grossly in tact. Good strength and no focal deficit. Ext: No C/C/E. No deformity or tenderness. Skin: Warm and dry with diffuse hives.
[2019-03-30 00:43] VITALS: BP 118/68; PULSE 56; RESP 14; TEMP 36.4; O2SAT 96
== END 2019-03-30 00:44 | disposition home or self-care (01) ==
LOC: ER 00:46
PROVIDERS: Emergency Provider Emergency Medicine; PCP General Practice
DX: L50.0 Allergic urticaria (principal)
CPT/HCPCS: 99283; 99282

== ENCOUNTER 2019-04-09 17:00 | Emergency (ER) | payer MEDICAID, SELFPAY ==
[2019-04-09 17:11] VITALS: BP 121/73; PULSE 75; RESP 12; TEMP 36.8; O2SAT 95
--- NOTE | 2019-04-09 17:25 | W.ED.GENAD ---
Discharge Plan Disposition Patient Disposition: HOME Condition: Good Discharge Details Chief Complaint: Laceration Clinical Impression: Laceration of thumb Primary Care Provider: Ankur Shelton ED Provider: Wendy Scott Home Meds and New Rx's Prescriptions: No Action No Known Home Meds RF: 0 Discharge Instructions Instructions: Laceration (ED), Skin Adhesive Care (ED) Additional Instructions: Keep wound clean, dry, covered. Please use gloves while at work. Monitor for signs of infection including redness, warmth, drainage, increased pain, fever/chills. If these or other new/worsening symptoms arise please seek care urgently once again. Please allow adhesive to come off naturally. Do not place any ointment over this. Please follow-up with primary care as needed. Referrals: Ankur Shelton MD [Primary Care Provider] - Discharge Data Discharge Date/Time-TO BE ENTERED AT DEPARTURE: 04/09/19 18:07 Medical Decision Making Patient is a 43 year old RHD male presenting today for eval of left thumb laceration. Suffered a 8 mm laceration to the ulnar side of the left thumb. The lateral aspect of the nailbed into the distal thumb. No active bleeding. Patient reports last tetanus 2 years ago. He was copiously cleansed by myself. Wound edges do not separate at all, appears quite superficial. I have no suspicion for bony involvement at this time. Patient son actively bleeding. Discussed closure with adhesive. Patient I discussed risk/benefits as well as expected procedural steps. He voiced understanding and wished to proceed. Procedure note: Using Santyl technique, the wound was copiously irrigated. Explored to base in a bloodless field. No foreign body or debris noted. Adhesive was applied in a thin layer. Patient tolerated this well. Patient I discussed wound care in depth. We discussed care of adhesive. He was given strict return precautions, signs of infection. 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 All of his questions and concerns were addressed and he is in agreement this plan. HPI General Mode of arrival: ambulatory. Date/Time Provider Initiated Documentation: 04/09/19 17:25. Limitations to Documentation: no limitations. Information obtained by: patient and RN notes reviewed. History of Present Illness 43 year old M presents to the emergency department with the chief complaint of left thumb laceration, described as moderate, with intensity rated at 7. Quality is described as aching, and is localized to the left and upper extremity. Patient reports no radiation. Patient started experiencing this minute(s) and it has been constant. No relieving factors improve symptom(s), No exacerbating factors reported . Patient notes no other symptoms.. Patient did receive the following treatments prior to arrival, none Related Data Home Medications Medication Instructions Recorded Confirmed Unknown [No Known Home Meds] 04/09/19 04/09/19 Allergies Allergy/AdvReac Type Severity Reaction Status Date / Time fluoxetine HCl [From Prozac] Allergy Severe Hives Unverified 04/09/19 17:13 General Stated Complaint: Laceration FELIZ: 4 Review of Systems Constitutional Reports as per HPI, Denies chills and Denies fever(s) Musculoskeletal Reports as per HPI Integumentary/Breasts Reports as per HPI Neurologic Reports as per HPI, Denies sensory deficit and Denies paresthesias COUNT INCLUDES THE [facility] Medical History Anxiety (Chronic) Bipolar disorder (Chronic) Depression (Chronic) Social History Smoking/Tobacco Use Status: Former Tobacco Use Alcohol Intake: never Drug use: Occasionally Substance use type: marijuana Do you feel safe at home: Yes Do you feel safe in your relationship?: Yes Exam Const General: cooperative, healthy appearing, comfortable, no acute distress and well developed Nutritional Appearance: average body habitus and well nourished Orientation: alert and awake Resp Effort & Inspection: normal respiratory effort, able to speak in complete sentences and no respiratory distress Cardio Rate: regular rate Rhythm: regular rhythm Skin Trauma: laceration (8mm linear lac involving small amount of the lateral nail at distal aspect) and other (sound superficial, unable to separate wound edges, no bleeding) Neuro General: alert and awake Cognition: normal cognition Speech: speech normal Gait: normal gait Sensory Exam: no sensory deficits noted Extrem Left upper extremity: full ROM, normal capillary refill and no joint enlargement; abnormal to inspection (laceration as above. ligament and sensation exam normal) Psych Appearance: grossly normal and well kempt Mental Status: mental status grossly normal Speech and Movement: speech and movement normal Course Vital Signs Temperature 36.8 C 04/09/19 17:11 Pulse 75 04/09/19 17:11 Respiratory Rate 12 04/09/19 17:11 Blood Pressure 121/73 04/09/19 17:11 Pulse Oximetry 95 04/09/19 17:11 Temperature 36.8 C 04/09/19 17:11 Temperature Source Temporal Artery Scan 04/09/19 17:11 Pulse 75 04/09/19 17:11 Respiratory Rate 12 04/09/19 17:11 Respiratory Effort Non-Labored 04/09/19 17:12 Blood Pressure 121/73 04/09/19 17:11 Blood Pressure Position Sitting 04/09/19 17:11 Pulse Oximetry 95 04/09/19 17:11 Oxygen Delivery Method Room Air 04/09/19 17:11 Oxygen Flow Rate 0 04/09/19 17:11 Pain Level 7 04/09/19 17:11
--- NOTE | 2019-04-09 17:33 | ED.GENADUL_ITS ---
Discharge Plan Disposition Patient Disposition: HOME Condition: Good Discharge Details Chief Complaint: Laceration Clinical Impression: Laceration of thumb Primary Care Provider: Ankur Shelton ED Provider: Wendy Scott Home Meds and New Rx's Prescriptions: No Action No Known Home Meds RF: 0 Discharge Instructions Instructions: Laceration (ED), Skin Adhesive Care (ED) Additional Instructions: Keep wound clean, dry, covered. Please use gloves while at work. Monitor for signs of infection including redness, warmth, drainage, increased pain, fever/chills. If these or other new/worsening symptoms arise please seek care urgently once again. Please allow adhesive to come off naturally. Do not place any ointment over this. Please follow-up with primary care as needed. Referrals: Ankur Shelton MD [Primary Care Provider] - Discharge Data Discharge Date/Time-TO BE ENTERED AT DEPARTURE: 04/09/19 18:07 Medical Decision Making Patient is a 43 year old RHD male presenting today for eval of left thumb laceration. Suffered a 8 mm laceration to the ulnar side of the left thumb. The lateral aspect of the nailbed into the distal thumb. No active bleeding. Patient reports last tetanus 2 years ago. He was copiously cleansed by myself. Wound edges do not separate at all, appear s quite superficial. I have no suspicion for bony involvement at this time. Patient son actively bleeding. Discussed closure with adhesive. Patient I discussed risk/benefits as well as expected procedural steps. He voiced understanding and wished to proceed. Procedure note: Using Santyl technique, the wound was copiously irrigated. Explored to base in a bloodless field. No foreign body or debris noted. Adhesive was applied in a thin layer. Patient tolerated this well. Patient I discussed wound care in depth. We discussed care of adhesive. He was given strict return precautions, signs of infection. 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 All of his questions and concerns were addressed and he is in agreement this p brittani. HPI General Mode of arrival: ambulatory . Date/Time Provider Initiated Documentation: 04/09/19 17:25 . Limitations to Documentation: no limitations . Information obtained by: patient and RN notes reviewed . History of Present Illness 43 year old M presents to the emergency department with the chief complaint of left thumb laceration, described as moderate, with intensity rated at 7. Quality is described as aching, and is localized to the left and upper extremity. Patient reports no radiation. Patient started experiencing this minute(s) and it has been constant. No relieving factors improve symptom(s), No exacerbating factors reported . Patient notes no other symptoms.. Patient did receive the following treatments prior to arrival, none Related Data Home Medications Medication Instructions Recorded Confirmed Unknown [No Known Home Meds] 04/09/19 04/09/19 Allergies Allergy/AdvReac Type Severity Reaction Status Date / Time fluoxetine HCl [From Prozac] Allergy Severe Hives Unverified 04/09/19 17:13 General Stated Complaint: Laceration FELIZ: 4 Review of Systems Constitutional Reports as per HPI, Denies chills and Denies fever(s) Musculoskeletal Reports as per HPI Integumentary/Breasts Reports as per HPI Neurologic Reports as per HPI, Denies sensory deficit and Denies paresthesias [facility] Medical History Anxiety (Chronic) Bipolar disorder (Chronic) Depression (Chronic) Social History Smoking/Tobacco Use Status: Former Tobacco Use Alcohol Intake: never Drug use: Occasionally Substance use type: marijuana Do you feel safe at home: Yes Do you feel safe in your relationship?: Yes Exam Const General: cooperative, healthy appearing, comfortable, no acute distress and well developed Nutritional Appearance: average body habitus and well nourished Orientation: alert and awake Resp Effort & Inspection: normal respiratory effort, able to speak in complete sentences and no respiratory distress Cardio Rate: regular rate Rhythm: regular rhythm Skin Trauma: laceration (8mm linear lac involving small amount of the lateral nail at distal aspect) and other (sound superficial, unable to separate wound edges, no bleeding) Neuro General: alert and awake Cognition: normal cognition Speech: speech normal Gait: normal gait Sensory Exam: no sensory deficits noted Extrem Left upper extremity: full ROM, normal capillary refill and no joint enla rgement; abnormal to inspection (laceration as above. ligament and sensation exam normal) Psych Appearance: grossly normal and well kempt Mental Status: mental status grossly normal Speech and Movement: speech and movement normal Course Vital Signs Temperature 36.8 C 04/09/19 17:11 Pulse 75 04/09/19 17:11 Respiratory Rate 12 04/09/19 17:11 Blood Pressure 121/73 04/09/19 17:11 Pulse Oximetry 95 04/09/19 17:11 Temperature 36.8 C 04/09/19 17:11 Temperature Source Temporal Artery Scan 04/09/19 17:11 Pulse 75 04/09/19 17:11 Respiratory Rate 12 04/09/19 17:11 Respiratory Effort Non-Labored 04/09/19 17:12 Blood Pressure 121/73 04/09/19 17:11 Blood Pressure Position Sitting 04/09/19 17:11 Pulse Oximetry 95 04/09/19 17:11 Oxygen Delivery Method Room Air 04/09/19 17:11 Oxygen Flow Rate 0 04/09/19 17:11 Pain Level 7 04/09/19 17:11
== END 2019-04-09 18:07 | disposition home or self-care (01) ==
PROVIDERS: Emergency Provider Physician Assistant; PCP General Practice
DX: S61.112A Laceration without foreign body of left thumb with damage to nail, initial encounter (principal); W26.0XXA Contact with knife, initial encounter
CPT/HCPCS: 12001

== ENCOUNTER 2019-04-24 14:30 | Emergency (ER) | payer MEDICAID, SELFPAY ==
--- NOTE | 2019-04-24 14:39 | ED.GENADUL_ITS ---
Discharge Plan Disposition Patient Disposition: HOME Condition: Stable Discharge Details Chief Complaint: PsychEval Clinical Impression: Depression Primary Care Provider: Ankur Shelton ED Provider: Rachel Noriega Home Meds and New Rx's Prescriptions: Continued clonidine HCl 0.1 mg Tablet 0.1 mg PO HS RF: 0 Rexulti 1 mg Tablet 1 mg PO DAILY RF: 0 Discharge Instructions Instructions: Depression (ED) Additional Instructions: Follow-up with [facility] services on Monday and your appointment on April 30. Take your regular medications as directed. Return immediately to the emergency department if you develop any worsening or new concerning symptoms. 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 Patient is hemodynamically stable. He denies feeling suicidal at present. Patient states he did not want to be at work with these feelings. Will check screening labs and call mental health. 1710 --patient is medically cleared. 172 --discussed with mental health -patient is cleared for discharge home. Patient denies feeling suicidal at this time and that he would like to go home to his . Patient has a follow-up appointment with [facility] on Monday as well as April 30. Instructed to return here if worse. Medical Records Medical records reviewed: Yes I reviewed the patient's medical records. Lab Data Lab results reviewed: Yes I reviewed the patient's lab results. Laboratory Tests Range/Units 04/24/19 04/24/19 04/24/19 15:30 15:39 15:39 WBC (4.4-10.8) k/cumm 4.51 RBC (4.50-6.00) m/cumm 4.22 L Hgb (13.5-17.5) g/dL 13.5 Hct (40.0-50.0) % 38.7 L MCV (80-95) fL 91.7 MCH (27.0-33.0) pg 32.0 MCHC (32.0-36.0) g/dL 34.9 RDW (11.8-14.1) % 12.4 Plt Count (130-400) x1000/uL 236 MPV (8.0-11.0) fL 10.1 Immature Gran % 0.0 Neutrophils % 47.0 Lymphocytes % 37.3 Monocytes % 11.3 Eosinophils % 3.5 Basophils % 0.9 Absolute Neutrophils (1.2-6.7) k/cumm 2.12 Absolute Lymphocytes (1.2-3.4) k/cumm 1.68 Absolute Monocytes (0.11-0.7) k/cumm 0.51 Absolute Eosinophils (0.0-0.7) k/cumm 0.16 Absolute Basophils (0.0-0.2) k/cumm 0.04 Sodium (136-145) mmol/L 144 Potassium (3.5-5.1) mmol/L 3.8 Chloride (98-107) mmol/L 108 H Carbon Dioxide (21.0-32.0) mmol/L 24.5 Anion Gap (3-11) mmol/L 11.5 H BUN (7-18) mg/dL 15 Creatinine (0.70-1.30) mg/dL 0.81 Estimated GFR/1.73 m2 (mL/min/1.73m2) >= 60.00 Glucose (70-100) mg/dL 104 H Calcium (8.5-10.1) mg/dL 8.9 Urine Opiates Screen (Negative) Negative Urine Methadone Screen (Negative) Negative Ur Barbiturates Screen (Negative) Negative Ur Tricyclics Screen (Negative) Negative Ur Amphetamines Screen (Negative) Negative U Benzodiazepines Scrn (Negative) Negative Urine Cocaine Screen (Negative) Negative Ur THC Screen (Negative) Positive Ethyl Alcohol (<3) mg/dL < 3.0 HPI General Mode of arrival: ambulatory . Date/Time Provider Initiated Documentation: 04/24/19 14:39 . Limitations to Documentation: no limitations . Information obtained by: patient . HPI Narrative: Pt is a 43yo male with a history of anxiety and depression who presents for suicidal ideation. 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 Patient states he has been feeling this way for some time and feels more safe to come here. Patient denies any homicidal ideation, hallucinations, alcohol or drug use. Patient states he took his regular medications last night. He thinks they are Risperdal and an antianxiety medication. Related Data Home Medications Medication Instructions Recorded Confirmed Rexulti 1 mg PO DAILY 04/24/19 04/24/19 clonidine HCl 0.1 mg PO HS 04/24/19 04/24/19 Allergies Allergy/AdvReac Type Severity Reaction Status Date / Time fluoxetine HCl [From Prozac] Allergy Severe Hives Unverified 04/24/19 15:07 General FELIZ: 4 Review of Systems Review of Systems All systems reviewed & are unremarkable except as noted in HPI and below Constitutional Reports as per HPI, Denies chills and Denies fever(s) Eyes Denies blurry vision ENT Denies dizziness, Denies sore throat and Denies throat swelling Cardiovascular Denies chest pain and Denies dyspnea Respiratory Denies cough and Denies dyspnea Gastrointestinal Denies abdominal pain, Denies diarrhea and Denies vomiting Genitourinary Denies hematuria and Denies dysuria Musculoskeletal Denies back pain and Denies numbness Integumentary/Breasts Denies lesions and Denies rash Neurologic Denies dizziness, Denies focal weakness and Denies numbness Psychiatric Reports depression, Denies auditory hallucinations, Denies homicidal ideation and Reports suicidal ideation Allergic/Immunologic Denies throat swelling [facility] Medical History Anxiety (Chronic) Bipolar disorder (Chronic) Depression (Chronic) Surgical History No significant past surgical history (Acute) Social History Smoking/Tobacco Use Status: Former Tobacco Use Alcohol Intake: never Drug use: Occasionally Substance use type: marijuana Do you feel safe at home: Yes Do you feel safe in your relationship?: Yes Exam Const General: cooperative, healthy appearing, no acute distress and anxious (mildly ) HENMT Head: normal to inspection Face and sinus: normal facial exam Eyes General: appearance normal, both eyes and all related structures Pupils: PERRL EOM: EOM intact bilaterally Neck Neck: normal visual inspection and No submandibular swelling Lymphatic: no lymphadenopathy noted Chest Chest: normal inspection of the chest and no tenderness Resp Effort & Inspection: normal respiratory effort and able to speak in complete sentences Auscultation: clear to auscultation bilaterally Cardio Rate: regular rate Rhythm: regular rhythm GI Inspection: normal to inspection Palpation: soft, not firm, not rigid and nontender Auscultation: normal bowel sounds Skin General skin exam: no rashes or lesions noted Neuro General: alert, awake and oriented x3 Cognition: normal cognition Speech: speech normal Motor: muscle tone normal throughout Sensory Exam: no sensory deficits noted Extrem General: normal to inspection, full ROM, normal capillary refill, no calf tenderness bilaterally and no edema Psych Appearance: grossly normal Mental Status: mental status grossly normal Speech and Movement: speech and movement normal Affect: normal affect
[2019-04-24 15:03] VITALS: BP 198/72; PULSE 64; RESP 16; TEMP 36.4; O2SAT 99
[2019-04-24 15:51] LABS: Absolute Basophil Count 0.04 k/cumm (0.0-0.2); Absolute Eosinophil Count 0.16 k/cumm (0.0-0.7); Absolute Lymphocyte Count 1.68 k/cumm (1.2-3.4); Absolute Monocyte Count 0.51 k/cumm (0.11-0.7); Absolute Neutrophil Count 2.12 k/cumm (1.2-6.7); Basophils % 0.9; Eosinophils % 3.5; HCT 38.7 % (40.0-50.0); HGB 13.5 g/dL (13.5-17.5); Lymphocytes % 37.3; Mean Corp. HGB Concentration 34.9 g/dL (32.0-36.0); Mean Corpuscular Volume 91.7 fL (80-95); Mean Platelet Volume 10.1 fL (8.0-11.0); Monocytes % 11.3; Platelet Count 236 x1000/uL (130-400); RBC 4.22 m/cumm (4.50-6.00); RBC Distribution Width 12.4 % (11.8-14.1); White Blood Cell Count 4.51 k/cumm (4.4-10.8)
[2019-04-24 16:03] LABS: *AMPHETAMINES SCREEN URINE Negative (Negative); *BARBITURATES SCREEN URINE Negative (Negative); *BENZODIAZEPINES SCREEN URINE Negative (Negative); Cannabinoids THC POSITIVE (Negative); Cocaine Screen,Urine Negative (Negative); METHADONE URINE SCREEN Negative (Negative); OPIATES URINE SCREEN Negative (Negative); Tricyclic Antidepressants Negative (Negative)
[2019-04-24 16:05] LABS: Anion Gap 11.5 mmol/L (3-11); BUN 15 mg/dL (7-18); CO2 24.5 mmol/L (21.0-32.0); CREATININE 0.81 mg/dL (0.70-1.30); Calcium 8.9 mg/dL (8.5-10.1); Chloride 108 mmol/L (98-107); Glucose 104 mg/dL (70-100); Potassium 3.8 mmol/L (3.5-5.1); Sodium 144 mmol/L (136-145)
[2019-04-24 16:23] LABS: ETHANOL BLOOD < 3.0 mg/dL (<3)
[2019-04-24 17:50] VITALS: BP 116/61; PULSE 56; RESP 14; TEMP 37.2; O2SAT 97
== END 2019-04-24 18:00 | disposition home or self-care (01) ==
PROVIDERS: Emergency Provider Physician Assistant; PCP General Practice
DX: F41.8 Other specified anxiety disorders (principal); R45.851 Suicidal ideations
CPT/HCPCS: 36415; 80048; 80307; 99285; 80320; 85025; 99284

== ENCOUNTER 2019-05-06 10:51 | Emergency (ER) | payer MEDICAID, SELFPAY ==
[2019-05-06 10:57] VITALS: BP 142/71; PULSE 62; RESP 18; TEMP 37.1; O2SAT 97
--- NOTE | 2019-05-06 11:01 | ED.GENADUL_ITS ---
Discharge Plan Disposition Patient Disposition: [facility] Condition: Serious Discharge Details Chief Complaint: PsychEval Clinical Impression: Suicidal ideations Primary Care Provider: Ankur Shelton ED Provider: Wendy Scott Home Meds and New Rx's Prescriptions: No Action clonidine HCl 0.1 mg Tablet 0.1 mg PO HS RF: 0 Rexulti 1 mg Tablet 1 mg PO DAILY RF: 0 Medical Decision Making <ADOLFO Mims - Last Filed: 05/07/19 14:13> This is a 43-year-old male, well-known to myself, with history of anxiety, depression and bipolar disorder, presenting today with chief complaint of suicidal ideation. He reports that recently everything is going wrong. States that he had ongoing conflict with his , sounds that marriage may be ending. Also reports that mother and that their relationship ended on bad terms. He plans to kill himself by cutting. 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 He reports smoking marijuana but denies other drugs or ETOH abuse. Has not cut himself recently. He reports that he has tried to commit suicide historically, last through overdose in the . Plan to consult with ARTURO STINSON and obtain baseline labs. Consulted with ARTURO who feels patient needs to be admitted for inpatient care, patient is voluntary at this time. Care transitioned to Darrel Cohen NP with doc to doc and final disposition pending. Care resumed after slot shift supervisor. Patient remained stable over night per Dr. Davis's report. Awaiting bed placement. Patient comfortable, eating breakfast. Patient did not receive his Rexulti dosing last night, will administer here. Patient accepted at [facility], accepting provider Ok Elaine NP. Patients medication is not in this hospital, unable to give medication at this time. Patient to be transferred to [facility] via sherri.He has remained comfortable and appropriate, continues to be voluntary. <Jose Cohen NP - Last Filed: 05/06/19 21:58> Patient signed out to me from ADOLFO Mims pending inpatient psychiatric admission. She states that patient has been accepted at psychiatric facility and doc to doc will be done more than likely in the morning. Patient is stable, voluntary, and calm with no complaints. After patient's dinner he requested a sleep aid so patient was given 50 mg of Benadryl prior to sleep. Patient had no other additional complaints and remained stable and compliant with no issues during my care of patient. <Mustapha Davis DO - Last Filed: 05/07/19 20:22> Patient was signed out to me pending transfer and Dr. landeros. Evening was uneventful. The patient slept well throughout the night with no complication. No significant altercations. Currently the patient is still resting comfortably. Case will be signed out to my colleague Wendy Scott for final disposition and Dr. landeros. HPI <ADOLFO Mims - Last Filed: 05/07/19 14:13> General Mode of arrival: ambulatory . Date/Time Provider Initiated Documentation: 05/06/19 11:00 . Limitations to Documentation: no limitations . Information obtained by: patient and RN notes reviewed . History of Present Illness 43 year old M presents to the emergency department with the chief complaint of suicidal, described as severe and similar to prior episodes, Patient started experiencing this day(s) and it has been constant. other things that improve symptom(s), (cutting) Patient notes no other symptoms.. Patient did receive the following treatments prior to arrival, none Related Data Home Medications Medication Instructions Recorded Confirmed Rexulti 1 mg PO DAILY 04/24/19 05/07/19 clonidine HCl 0.1 mg PO HS 04/24/19 05/07/19 Allergies Allergy/AdvReac Type Severity Reaction Status Date / Time fluoxetine HCl [From Prozac] Allergy Severe Hives Unverified 05/06/19 11:00 General Stated Complaint: PsychEval FELIZ: 2 Review of Systems <ADOLFO Mims - Last Filed: 05/07/19 14:13> Constitutional Reports as per HPI, Denies chills, Denies fatigue, Denies fever(s), Denies head ache(s) and Denies weakness Eyes Denies change in vision ENT Denies headache(s) Cardiovascular Reports as per HPI, Denies chest pain, Denies lightheadedness, Denies dyspnea and Denies dyspnea on exertion Respiratory Reports as per HPI, Denies cough, Denies dyspnea and Denies dyspnea on exertion Gastrointestinal Reports as per HPI, Denies abdominal pain, Denies change in bowel habits, Denies nausea and Denies vomiting Genitourinary Denies system reviewed and no additional complaints, except as docu (denies any change in urinary habits) Musculoskeletal Denies abnormal gait Integumentary/Breasts Reports as per HPI and Denies rash Neurologic Denies abnormal movements, Denies abnormal speech, Denies abnormal gait, Denies headache(s), Denies paresthesias and Denies weakness Psychiatric Reports abnormal sleep pattern (sleeping more than typical), Reports anxiety, Denies change in appetite, Reports mood swings, Denies hallucinations, Denies homicidal ideation and Reports suicidal ideation Endocrine Denies fatigue PFSH <ADOLFO Mims - Last Filed: 05/07/19 14:13> Medical History Anxiety (Chronic) Bipolar disorder (Chronic) Depression (Chronic) Social History Smoking/Tobacco Use Status: Former Tobacco Use Alcohol Intake: never Drug use: Occasionally Substance use type: marijuana Do you feel safe at home: Yes Do you feel safe in your relationship?: Yes Exam <ADOLFO Mims - Last Filed: 05/07/19 14:13> Const General: cooperative, healthy appearing, comfortable, well developed, well groomed, anxious and other (patient is crying) Nutritional Appearance: average body habitus and well nourished Orientation: alert and awake Eyes General: appearance normal, both eyes and all related structures Resp Effort & Inspection: normal respiratory effort, able to speak in complete sentences and no respiratory distress Auscultation: clear to auscultation bilaterally, no rales, no rhonchi and no wheezes Cardio Rate: regular rate Rhythm: regular rhythm Heart Sounds: S1 normal and S2 normal Skin General skin exam: no rashes or lesions noted Trauma: no lacerations or abrasions Neuro General: alert and awake Cognition: normal cognition Speech: speech normal Gait: normal gait Course <ADOLFO Mims - Last Filed: 05/07/19 14:13> Vital Signs Temperature 37.1 C 05/06/19 10:57 Pulse 62 05/06/19 10:57 Respiratory Rate 18 05/06/19 10:57 Blood Pressure 142/71 H 05/06/19 10:57 Pulse Oximetry 97 05/06/19 10:57 Temperature 37.1 C 05/06/19 10:57 Temperature Source Skin 05/06/19 10:57 Pulse 62 05/06/19 10:57 Respiratory Rate 18 05/06/19 10:57 Blood Pressure 142/71 H 05/06/19 10:57 Pulse Oximetry 97 05/06/19 10:57 Oxygen Delivery Method Room Air 05/06/19 10:57 Oxygen Flow Rate 0 05/06/19 10:57 Pain Level 0 05/06/19 10:57 Sign Out <ADOLFO Mims - Last Filed: 05/07/19 14:13> Sign Out Data: Sign Out Comment: Patient actively suicidal. Voluntarily being transferred to [facility]. Patient to be transferred tonight or tomorrow morning. Doc to doc pending. Last updated by Wendy Scott PA at 05/06/19 16:13 Sign Out Comment: Patient signed out to Dr. Alberto Davis pending official acceptance to [facility] and doc to doc report given Last updated by Jose Cohen NP at 05/06/19 23:33 Sign Out Comment: Pending transfer to [facility]. Still awaiting callback for Dr. landeros. Patient had uneventful evening, slept comfortably. Last updated by Mustapha Davis DO at 05/07/19 07:44
[2019-05-06] MEDS: LORazepam 1 MG TAB PO (11:32)
--- NOTE | 2019-05-06 11:32 | NUR.NOTE ---
patient medicated Nursing Note:
[2019-05-06 11:53] LABS: Abs Immature Grans 0.01 k/cumm (0.0-0.09); Absolute Basophil Count 0.02 k/cumm (0.0-0.2); Absolute Eosinophil Count 0.03 k/cumm (0.0-0.7); Absolute Lymphocyte Count 1.22 k/cumm (1.2-3.4); Absolute Monocyte Count 0.47 k/cumm (0.11-0.7); Absolute Neutrophil Count 2.89 k/cumm (1.2-6.7); Basophils % 0.4; Eosinophils % 0.6; HCT 43.5 % (40.0-50.0); HGB 15.2 g/dL (13.5-17.5); Immature Grans % 0.2; Lymphocytes % 26.3; Mean Corp. HGB Concentration 34.9 g/dL (32.0-36.0); Mean Corpuscular Hemoglobin 31.8 pg (27.0-33.0); Mean Platelet Volume 10.4 fL (8.0-11.0); Monocytes % 10.1; Neutrophils % 62.4; Platelet Count 209 x1000/uL (130-400); RBC 4.78 m/cumm (4.50-6.00); RBC Distribution Width 12.5 % (11.8-14.1); White Blood Cell Count 4.64 k/cumm (4.4-10.8)
[2019-05-06 12:16] LABS: ALT 21 U/L (12-78); AST 12 U/L (15-37); Albumin 4.1 g/dL (3.4-5.0); Alkaline Phosphatase 53 U/L (46-116); Anion Gap 10.5 mmol/L (3-11); BUN 13 mg/dL (7-18); Bilirubin, Total 0.3 mg/dL (0.2-1.0); CO2 26.5 mmol/L (21.0-32.0); CREATININE 0.92 mg/dL (0.70-1.30); Calcium 9.2 mg/dL (8.5-10.1); Chloride 108 mmol/L (98-107); Glucose 119 mg/dL (70-100); Potassium 3.6 mmol/L (3.5-5.1); Sodium 145 mmol/L (136-145); TSH 0.83 uIU/mL (0.36-3.74); Total Protein 7.2 g/dL (6.4-8.2)
[2019-05-06 12:29] LABS: Bilirubin Negative (Negative); Blood Trace-lysed (Negative); Clarity Clear (Clear); Glucose Negative (Negative); Ketones Negative (Negative); Leukocyte Esterase Negative (Negative); Nitrite Negative (Negative); Specific Gravity 1.015 (1.005-1.025); Urobilinogen 0.2 EU/dL (Up TO 0.2)
[2019-05-06 12:40] LABS: Bacteria Few HPF (Negative); C & S Indicated? No; Casts Negative LPF (Negative); Crystals Negative HPF (Negative); Epithelial Cells Negative HPF (Negative); Mucus Trace (Negative); RBC 0-2 (0-2); WBC 0-2 HPF (0-5)
[2019-05-06 12:45] LABS: ETHANOL BLOOD < 3.0 mg/dL (<3)
[2019-05-06 13:06] LABS: Salicylate < 2.8 mg/dL (2.8-20.0)
[2019-05-06 13:20] LABS: Acetaminophen < 2 ug/mL (10-30)
[2019-05-06 13:51] VITALS: BP 128/60; PULSE 61; RESP 18; O2SAT 97
[2019-05-06 14:00] LABS: *AMPHETAMINES SCREEN URINE Negative (Negative); *BENZODIAZEPINES SCREEN URINE Negative (Negative); Cocaine Screen,Urine Negative (Negative); METHADONE URINE SCREEN Negative (Negative)
[2019-05-06 14:01] LABS: *BARBITURATES SCREEN URINE Negative (Negative); Cannabinoids THC POSITIVE (Negative); OPIATES URINE SCREEN Negative (Negative); Tricyclic Antidepressants Negative (Negative)
--- NOTE | 2019-05-06 14:25 | PDOC.MHCN_ITS ---
Date of service: 05/06/19 Time of Service: 14:25 Mental Health Crisis Note Presenting Issue How did you arrive at the ED and why did you come: Patient meets with his therapist at [facility] earlier in the day. During the therapy session, he is tearful, distraught, and reveals that he doesn't want to live anymore. Patient is subsequently transported to the ED for medical clearance with a plan to seek a voluntary hospitalization. Precipitating Factors Patient reports worsening suicidal ideation over the past 3 to 4 months. He has a number of stressors at work and at home and reports feeling hopeless. He is a lso struggling to cope with the of his mother in November of this year. Patient has a history of depression and anxiety with a suicide attempt in 1995 - 1996 when [place]. He was subsequently hospitalized at [facility]. Disposition BEHAVIOR: Cooperative. EYE CONTACT: Good. MOOD: Depressed. AFFECT: Anxious. APPETITE: Reported as poor. SLEEP(trouble falling/staying asleep: Reports difficulty sleeping at night. Plan Wendy Scott PA-C, is consulted with the plan to seek a voluntary psychiatric hospitalization. [facility] for [facility]. Patient will remain at [facility] until a placement can be secured for him. Signature Clinician's Name/Title: Shannan Mcqueen BA, [facility]
[2019-05-06 15:41] VITALS: BP 136/72; PULSE 66; RESP 19
--- NOTE | 2019-05-06 17:52 | CMSP_ITS ---
- If Service Date Differs Date of service: 05/06/19 Time of Service: 17:52 Care Management Safety Plan Naveed is a 43 year old man who presented with suicidal ideation. Naveed had been meeting with his MH therapist at [facility] when he became overwhelmed with suicidal thoughts and anxiety. He was taken to the hospital for evaluation. Naveed states he has been struggling for several months with depression and suicidal thoughts. His mother in November and they had had a falling out shortly before she . This bothers him greatly he states, as he was unable to obtain closure. He has also been having marital problems and he and his are estranged. They both live in an apartment building in [facility] but have separate apartments. This morning Naveed received several text messages from his boss informing him he was being fired from his job because he did not communicate that he was not coming to work today. 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 Because he is unemployed, Naveed fears he will become homeless. This is problematic because he is a registered sex offender who must have a home. He has recently reconnected with his adoptive parents and hopes he may be able to stay with them when he returns to the community. Naveed is seeking voluntary admission to a psychiatric hospital. He has been seen by [facility] and has been accepted at [facility] for admission tomorrow morning. MD to MD to be completed this evening. Naveed has been appropriate in all of his interactions with staff. He is polite and respectful and maintains good eye contact. He is demonstrating appropriate coping and communication skills and is engaged.Naveed is requesting medication to help him sleep. Request conveyed to provider. In the interim; please note safety plan below to guide patient care while awaiting further assessment in the ED. Interim safety Plan: 1. Will remain on suicide precautions and in paper clothes. 2. Will remain in room under direct supervision of one-on-one staff at all times provided by ROGERIO, AMARI steeping press operator; CPSO 3. May have paper cups, plates, finger foods as well as a safety spoon with which to eat meals. 4. Follow [facility] Management of the Admitted Behavioral Health Patient policy. 5. Comfort bath system only. 6. No personal belongings 7. No visitors. 8. Phone : has personal cell phone with him . 9. Due to VOLUNTARY status, if patient wishes to leave [facility], the [facility] ornamental iron worker helper must be contacted to re-evaluate patient prior to patient exiting the building. [facility] will continue coordinating placement. Transport will be with [facility] coordinated by this adjusto writer operator.
[2019-05-06] MEDS: diphenhydrAMINE 25 MG CAP 50 MG PO (20:11)
[2019-05-07 07:53] VITALS: BP 125/77; PULSE 66; RESP 14; TEMP 36.7; O2SAT 98
--- NOTE | 2019-05-07 11:06 | MHPN_ITS ---
Date of service: 05/07/19 Time of Service: 11:06 Mental Health Progress Note Progress Note: Presenting Issue: Naveed remains at [facility] awaiting a psych placement. He first presented to the ED yesterday due to suicidal ideation. Precipitating Factors: Naveed has a long history of depression with a suicide attempt several years ago and subsequent psych hospitalization at [facility]. Naveed is currently struggling with a number of stressors, e.g. marital problems, difficulties at work, of his mom, etc. He reports worsening suicidal ideation over the past 3 or 4 months with an inability to remain safe at home. Disposition * Behavior: Cooperative. *Eye Contact: Good. *Mood: Depressed. *Affect: Congruent to mood. *Appetite: Poor. *Sleep(troubel falling/staying asleep): Reports difficulty remaining asleep at night. Plan(please elaborate and include that physician is consulted with plan and/or placement): [facility]. As soon as the [id number] has taken place, Naveed will be transported via child development consultant to the [facility]. Clinician's Name , Title, and Signature: Shannan Mcqueen BA, [facility], [facility] Maintenance Planner Make sure that you are photocopying and submitting this to [facility] records Dept. to be scanned into chart.
--- NOTE | 2019-05-07 13:25 | NUR.NOTE ---
Nursing Note: pt ambulated to and from bathroom, steady gait noted.
== END 2019-05-07 14:44 | disposition short-term general hospital (02) ==
PROVIDERS: Emergency Provider Physician Assistant; PCP General Practice
DX: F41.8 Other specified anxiety disorders (principal); R31.9 Hematuria, unspecified; R45.851 Suicidal ideations; Z91.5 Personal history of self-harm; Z75.1 Person awaiting admission to adequate facility elsewhere
CPT/HCPCS: 36415; 80053; 80307; 99285; 80320; 80329; 81003; 81015; 84443; 85025; 99284

== ENCOUNTER 2019-11-13 09:22 | Outpatient (CLI) | payer MEDICAID, SELFPAY ==
[2019-11-13 09:42] LABS: Abs Immature Grans 0.03 k/cumm (0.0-0.09); Absolute Basophil Count 0.06 k/cumm (0.0-0.2); Absolute Eosinophil Count 0.18 k/cumm (0.0-0.7); Absolute Lymphocyte Count 1.67 k/cumm (1.2-3.4); Absolute Monocyte Count 0.38 k/cumm (0.11-0.7); Absolute Neutrophil Count 2.49 k/cumm (1.2-6.7); Basophils % 1.2; Eosinophils % 3.7; HCT 42.9 % (40.0-50.0); HGB 15.1 g/dL (13.5-17.5); Immature Grans % 0.6 %; Lymphocytes % 34.7; Mean Corp. HGB Concentration 35.2 g/dL (32.0-36.0); Mean Corpuscular Hemoglobin 32.5 pg (27.0-33.0); Mean Corpuscular Volume 92.5 fL (80-95); Mean Platelet Volume 9.9 fL (8.0-11.0); Monocytes % 7.9; Neutrophils % 51.9; Platelet Count 234 x1000/uL (130-400); RBC 4.64 m/cumm (4.50-6.00); RBC Distribution Width 13.1 % (11.8-14.1); White Blood Cell Count 4.81 k/cumm (4.4-10.8)
[2019-11-13 10:41] LABS: ALT 35 U/L (16-63); AST 25 U/L (15-37); Albumin 3.9 g/dL (3.4-5.0); Alkaline Phosphatase 64 U/L (46-116); Anion Gap 6.4 mmol/L (3-11); BUN 10 mg/dL (7-18); Bilirubin, Total 0.3 mg/dL (0.2-1.0); CO2 29.6 mmol/L (21.0-32.0); CREATININE 1.09 mg/dL (0.70-1.30); Calcium 8.5 mg/dL (8.5-10.1); Chloride 108 mmol/L (98-107); Glucose 107 mg/dL (74-106); Potassium 3.9 mmol/L (3.5-5.1); Sodium 144 mmol/L (136-145); TSH 0.68 uIU/mL (0.36-3.74); Total Protein 6.7 g/dL (6.4-8.2)
[2019-11-16 17:08] LABS: Testosterone, Total 965 ng/dL (240-950)
== END 2019-11-13 09:42 ==
PROVIDERS: PCP General Practice; Visit Provider Nurse Practitioner Family
DX: F33.1 Major depressive disorder, recurrent, moderate (principal); Z79.899 Other long term (current) drug therapy; R53.83 Other fatigue
CPT/HCPCS: 36415; 80053; 84403; 84443; 85025

== ENCOUNTER 2020-11-11 10:14 | Outpatient (CLI) | payer MEDICAID, SELFPAY ==
--- NOTE | 2020-11-11 13:33 | DI.RAD_ITS ---
EXAM: XR CHEST 2V PA LATERAL CLINICAL HISTORY: PARESTHESIA, R20.2, CANNABIS ABUSE, F12.10, PER PT SOB TECHNIQUE: 2D digital imaging was performed. COMPARISON: No exams were available for comparison FINDINGS: MEDIASTINUM: Normal. HEART: Normal. PULMONARY VASCULATURE: Normal. LUNGS: Clear. PLEURAL SPACE: No pleural effusion or pneumothorax. BONE:Within normal limits for the patient's age. OTHER FINDINGS:Normal. IMPRESSION: No acute pulmonary findings. DATA REPOSITORY: RADIATION DOSE DELIVERED:
== END 2020-11-11 10:15 ==
LOC: DI 11-12 10:16
PROVIDERS: PCP Physician Assistant Medical; Visit Provider Physician Assistant Medical
DX: R20.2 Paresthesia of skin (principal); F12.10 Cannabis abuse, uncomplicated
CPT/HCPCS: 71046

== ENCOUNTER 2020-11-11 15:18 | Outpatient (REF) | payer MEDICAID, SELFPAY ==
[2020-11-11 13:14] LABS: Abs Immature Grans 0.03 10^3/uL (0.0-0.06); Absolute Basophil Count 0.04 10^3/uL (0.0-0.2); Absolute Eosinophil Count 0.15 10^3/uL (0.0-0.7); Absolute Lymphocyte Count 1.59 10^3/uL (1.2-3.4); Absolute Monocyte Count 0.55 10^3/uL (0.1-0.8); Absolute Neutrophil Count 2.55 10^3/uL (1.2-6.7); Basophils % 0.8; Eosinophils % 3.1; HCT 40.8 % (40.0-50.0); Immature Grans % 0.6; Lymphocytes % 32.4; MCHC 34.3 % (32.0-36.0); MCV 90.5 fL (80-95); MPV 10.1 fL (8.0-11.0); Monocytes % 11.2; Neutrophils % 51.9; Nucleated RBC 0 %; Platelet Count 219 10^3/uL (130-400); RBC 4.51 10^6/uL (4.36-5.78); RDW 13.2 % (11.8-14.1); RDW-SD 43.6 fL; WBC 4.91 10^3/uL (4.4-10.8)
[2020-11-11 13:47] LABS: Bilirubin Negative (Negative); Blood Trace-intact (Negative); Clarity Sl Cloudy (Clear); Glucose Negative (Negative); Ketones Negative (Negative); Leukocyte Esterase Negative (Negative); Nitrite Negative (Negative); Specific Gravity 1.025 (1.005-1.025); Urobilinogen 0.2 EU/dL (Up TO 0.2); pH 7.5 (5-8)
[2020-11-11 14:04] LABS: ALT 29 U/L (16-63); AST 23 U/L (15-37); Albumin 3.7 g/dL (3.4-5.0); Alkaline Phosphatase 60 U/L (46-116); Anion Gap 9.5 mmol/L (3-11); BUN 8 mg/dL (7-18); Bilirubin, Total 0.2 mg/dL (0.2-1.0); CO2 26.5 mmol/L (21.0-32.0); CREATININE 0.9 mg/dL (0.70-1.30); Calcium 8.6 mg/dL (8.5-10.1); Chloride 108 mmol/L (98-107); Glucose 96 mg/dL (74-106); Potassium 3.8 mmol/L (3.5-5.1); Sodium 144 mmol/L (136-145); TSH 1.36 uIU/mL (0.36-3.74); Total Protein 6.6 g/dL (6.4-8.2)
[2020-11-11 14:06] LABS: Bacteria Rare HPF (Negative); Crystals Few Calcium Oxalate HPF (Negative); Epithelial Cells Negative HPF (Negative); Mucus Trace (Negative); WBC 0-2 HPF (0-5)
[2020-11-11 14:06] LABS: Hemoglobin A1C 5.5 % (<5.7)
[2020-11-11 14:07] LABS: C & S Indicated? No; Casts Negative LPF (Negative)
== END 2020-11-11 15:19 | disposition home or self-care (01) ==
LOC: NCHCN 15:18
PROVIDERS: PCP Physician Assistant Medical; Visit Provider Physician Assistant Medical
DX: R35.0 Frequency of micturition (principal); R20.2 Paresthesia of skin
CPT/HCPCS: 80053; 81003; 81015; 83036; 84443; 85025

== ENCOUNTER 2020-11-25 01:05 | Outpatient (CLI) | payer MEDICAID, SELFPAY ==
--- NOTE | 2020-11-25 | DI.RAD_ITS ---
EXAM: XR CERVICAL SPINE COMP 4-5V CLINICAL HISTORY: NECK PAIN, M54.2. TECHNIQUE: 2D digital imaging was performed. COMPARISON: No exams were available for comparison FINDINGS: There is no evidence of fracture, listhesis, nor offset of the spinal laminar line. However, there i s reversal of the normal curvature. This has epicenter at C 5-6 level where there is disc space narr owing. Also small bilateral Luschka joint osteophytes noted at this level on the oblique views. All of the other disc spaces exhibit normal height. There are no cervical ribs. No osseous lesions. IMPRESSION: Significant degenerative disc disease C5-6 level. Straightening of the cervical curvature which is most probably related to chronic muscle spasm. DATA REPOSITORY: RADIATION DOSE DELIVERED:
--- NOTE | 2020-11-25 | DI.RAD_ITS ---
EXAM: XR LUMBAR SPINE COMPLETE CLINICAL HISTORY: LOW BACK PAIN, M54.5. TECHNIQUE: 2D digital imaging was performed. COMPARISON: No exams were available for comparison FINDINGS: There is no evidence fracture, listhesis, or pars defects. Disc spaces exhibit normal height. There is perhaps mild narrowing of L5-S1 disc space. No obvious facet arthropathy. Sacroiliac joints leonie ear unremarkable on the right but with some sclerosis on the left. There is no scoliosis. No osseou s lesions. IMPRESSION: Mild disc space narrowing at L5-S1 level. Other disc spaces exhibit normal height. Sclerotic changes noted on both sides of the left sacroiliac joint. Correlation the clinical finding s of possible sacroiliitis is recommended DATA REPOSITORY: RADIATION DOSE DELIVERED:
== END 2020-11-25 01:06 ==
LOC: DI 01:05
PROVIDERS: PCP Physician Assistant Medical; Visit Provider Physician Assistant
DX: M54.2 Cervicalgia (principal); M50.322 Other cervical disc degeneration at C5-C6 level; M54.5 Low back pain
CPT/HCPCS: 72050; 72110

== ENCOUNTER 2021-02-23 08:37 | Outpatient (CLI) | payer MEDICAID, SELFPAY ==
[2021-02-23 08:44] VITALS: BP 114/77; PULSE 80; RESP 17; TEMP 36.5; O2SAT 100
--- NOTE | 2021-02-23 09:33 | DI.RAD_ITS ---
Exam(s) XR PAIN CLINIC LUMBAR SP 2V EXAM: XR PAIN CLINIC LUMBAR SP 2V CLINICAL HISTORY: Dx: Lumbar Spondylosis,LUMBAR MEDIAL BRANCH BLOCK TECHNIQUE: Fluoroscopy was provided for the referring physician for guidance with performing injecti on procedure. COMPARISON: No exams were available for comparison FINDINGS: Please see procedure note for details. RADIATION DOSE DELIVERED: mirta Reyna=8.42 mGy
[2021-02-23 09:42] VITALS: BP 144/87; PULSE 59; RESP 17; O2SAT 99
[2021-02-23] MEDS: Bupivacaine 0.5% Pres-Free 10 ML VIAL IJ (09:42)
[2021-02-23] MEDS: Omnipaque 240 MG/ML 50 ML BTL IJ (09:43)
--- NOTE | 2021-02-23 09:45 | PDOC.PAIN_ITS ---
Pain Clinic Procedure Note Procedure Note Procedure Note: Lumbar/Sacral Medial Branch Blocks MINOO HAMPTON has been referred to the [facility] Management Center for lumbar/sacral medial branch blocks. 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 He reports average pain level to be at least 6 to 8 out of 10. He reports baseline pain level impairs his function. Patient was interviewed and the medical record reviewed. There were no medical, pharmacologic, radiographic or other structural contraindications to attempting fluoroscopically guided local anesthetic lumbar/sacral medial branch blocks. Risks and expected side effects as well as potential benefit of the procedure were reviewed and voiced concerns addressed. The printed consent form was signed and witnessed. Standard time-out procedure was performed. Patient was placed in the prone position on the fluoroscopy table and automated blood pressure cuff and pulse oximeter applied. The skin entry points for approaching the anatomic target points of the segmental medial branches of bilateral L3, L4, L5-DR were identified with anfluoroscopy and marked. Following thorough Chlorhexadine preparation of the skin and draping and 1% lidocaine infiltration of the skin entry points and subcutaneous tissues, a 22 gauge spinal needle was placed under fluoroscopic guidance down on to the target point for each respective segmental medial branch.Position was confirmed in A/P, oblique and lateral views with 0.25ml of omnipaque 240. Coult be this method .5ml 0.5% Bupivacaine was injected. Vital signs were stable throughout the procedure and were as recorded in the docflowsheet by the nursing staff. Follow up plans and appointments were discussed and was instructed to keep careful note of how the usual pain was modified by these injections. Specifically was asked to keep a pain diary for the next 24 hours using a numeric pain scale of 0-10 and report these results at the follow-up visit. Post procedure instruction was given as documented in the nursing documentation and having met discharge criteria. Patient was discharged from the [facility]. Based on the medial branches blocked today, if the patient has adequate relief and we are able to proceed to radiofrequency ablation, the treatment should result in the denervation of the bilateral L4/5 and L5/S1 facets. We would expect to denervate a total of 4 facets during the radiofrequency ablation. COMMENTS: pre-procedure pain level 8 out of 10, post procedure pain level 5 out of 10. Kelle Mckeon MD Pain Management CC: Olu Goel V
== END 2021-02-23 08:38 | disposition home or self-care (01) ==
PROVIDERS: PCP Physician Assistant Medical; Visit Provider Internal Medicine
DX: M47.816 Spondylosis without myelopathy or radiculopathy, lumbar region (principal)
CPT/HCPCS: 64493; 64494; 72100; Q9967

== ENCOUNTER 2021-03-25 07:50 | Outpatient (CLI) | payer MEDICAID, SELFPAY ==
[2021-03-25 07:57] VITALS: BP 128/73; PULSE 68; RESP 16; TEMP 36.5; O2SAT 98
--- NOTE | 2021-03-25 08:37 | DI.RAD_ITS ---
Exam(s) XR PAIN CLINIC LUMBAR SP 2V EXAM: XR PAIN CLINIC LUMBAR SP 2V CLINICAL HISTORY: Dx: Lumbar Spondylosis. TECHNIQUE: 2D and realtime digital imaging was performed. CONTRAST MATERIAL: Oral barium Oral water soluble contrast was administered. COMPARISON: No exams were available for comparison FINDINGS: Fluoroscopy was provided during pain management therapy performed by Dr. Fernandez. Submitted C-arm images reveal placement of needles at the L4, L5, and S1 levels for medial branch blo cks. Contrast was injected at the sites. IMPRESSION: As above. Total fluoroscopy time 63 seconds; clipped of dose 6.34Gy RADIATION DOSE DELIVERED: mirta Reyna=6.34 mGy
[2021-03-25] MEDS: Omnipaque 240 MG/ML 50 ML BTL IJ (08:39)
[2021-03-25] MEDS: Lidocaine 2% Pres-Free 5 ML VIAL IJ (08:40)
[2021-03-25 08:41] VITALS: BP 126/85; PULSE 75; RESP 15; O2SAT 98
--- NOTE | 2021-03-25 08:47 | PDOC.PAIN_ITS ---
Pain Clinic Procedure Note Procedure Note Procedure Note: Date of service: 03/25/21 Lumbar/Sacral Medial Branch Blocks #2 MINOO HAMPTON has been referred to the [facility] Management Center for lumbar/sacral medial branch blocks. COMMENTS: Great relief with his first LMBB by Dr. Mckeon. Pre-procedure VAS pain was 10/10. Dx: Lumbosacral spondylosis without myelopathy Patient was interviewed and the medical record reviewed. There were no medical, pharmacologic, radiographic or other structural contraindications to attempting fluoroscopically guided local anesthetic lumbar/sacral medial branch blocks. Risks and expected side effects as well as potential benefit of the procedure were reviewed and voiced concerns addressed. The printed consent form was signed and witnessed. Standard time-out procedure was performed. Patient was placed in the prone position on the fluoroscopy table and automated blood pressure cuff and pulse oximeter applied. The skin entry points for approaching the anatomic target points of the segmental medial branches of bilateral L3-L5DR were identified with anfluoroscopy and marked. Following thorough Chlorhexadine preparation of the skin and draping and 1% lidocaine infiltration of the skin entry points and subcutaneous tissues, a 22 gauge sp inal needle was placed under fluoroscopic guidance down on to the target point for each respective segmental medial branch.Position was confirmed in A/P, oblique and lateral views with 0.25ml of omnipaque 240. Coult be this method 0.5cc of 2% Lidocaine. Vital signs were stable throughout the procedure and were as recorded in the docflowsheet by the nursing staff. Follow up plans and appointments were discussed and was instructed to keep careful note of how the usual pain was modified by these injections. Specifically was asked to keep a pain diary for the next 24 hours using a numeric pain scale of 0-10 and report these results at the follow-up visit. Post procedure instruction was given as documented in the nursing documentation and having met discharge criteria. Patient was discharged from the Pain Management Center. Based on the medial branches blocked today, if the patient has adequate relief and we are able to proceed to radiofrequency ablation, the treatment should result in the denervation of the bilateral L4-L5 and L5-S1 FACET JOINTS. We would expect to denervate a total of 4 facets during the radiofrequency ablation. COMMENTS: Post-procedure VAS pain was 5/10. Ankur Fernandez DO, MPH Pain Management CC: Olu Goel V
== END 2021-03-25 07:51 | disposition home or self-care (01) ==
LOC: PC 07:51
PROVIDERS: PCP Physician Assistant Medical; Visit Provider Preventive Medicine Occupational Medicine
DX: M47.817 Spondylosis without myelopathy or radiculopathy, lumbosacral region (principal)
CPT/HCPCS: 64493; 64494; 72100; Q9967

== ENCOUNTER 2021-04-15 10:58 | Observation (INO) | payer MEDICAID, SELFPAY ==
[2021-04-15 11:02] VITALS: BP 147/84; PULSE 98; RESP 20; TEMP 36.8; O2SAT 97
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
[2021-04-15 11:49] LABS: Abs Immature Grans 0.01 10^3/uL (0.0-0.06); Absolute Basophil Count 0.05 10^3/uL (0.0-0.2); Absolute Eosinophil Count 0.17 10^3/uL (0.0-0.7); Absolute Lymphocyte Count 1.53 10^3/uL (1.2-3.4); Absolute Monocyte Count 0.52 10^3/uL (0.1-0.8); Absolute Neutrophil Count 2.48 10^3/uL (1.2-6.7); Basophils % 1.1; Eosinophils % 3.6; HCT 43.1 % (40.0-50.0); HGB 15.1 g/dL (13.5-17.5); Immature Grans % 0.2; Lymphocytes % 32.1; MCH 30.8 pg (27.0-33.0); MPV 9.1 fL (8.0-11.0); Monocytes % 10.9; Neutrophils % 52.1; Nucleated RBC 0 %; Platelet Count 222 10^3/uL (130-400); RDW 11.9 % (11.8-14.1); RDW-SD 38.6 fL; WBC 4.76 10^3/uL (4.4-10.8)
[2021-04-15 12:13] LABS: ALT 36 U/L (16-63); AST 22 U/L (15-37); Albumin 4.1 g/dL (3.4-5.0); Alkaline Phosphatase 62 U/L (46-116); Anion Gap 9.8 mmol/L (3-11); BUN 16 mg/dL (7-18); Bilirubin, Total 0.4 mg/dL (0.2-1.0); CO2 26.2 mmol/L (21.0-32.0); Calcium 8.6 mg/dL (8.5-10.1); Chloride 105 mmol/L (98-107); Glucose 118 mg/dL (74-106); Potassium 3.9 mmol/L (3.5-5.1); Sodium 141 mmol/L (136-145); TSH (W/Ref FT4) 0.75 uIU/mL (0.36-3.74); Total Protein 7.3 g/dL (6.4-8.2)
[2021-04-15 12:14] LABS: ETHANOL BLOOD < 3.0 mg/dL (<3)
[2021-04-15 12:18] LABS: Acetaminophen < 2 ug/mL (10-30); Salicylate < 2.8 mg/dL (<2.8)
[2021-04-15 12:41] LABS: Bilirubin Negative (Negative); Blood Trace-intact (Negative); Clarity Clear (Clear); Glucose Negative (Negative); Ketones Negative (Negative); Leukocyte Esterase Negative (Negative); Nitrite Negative (Negative); Urobilinogen 0.2 EU/dL (Up TO 0.2)
[2021-04-15 12:48] LABS: Bacteria Few HPF (Negative); C & S Indicated? Yes; Casts Negative LPF (Negative); Crystals Negative HPF (Negative); Epithelial Cells Rare HPF (Negative); Mucus Trace (Negative); WBC 0-2 HPF (0-5)
[2021-04-15 12:52] LABS: Source Nasal/Nares
[2021-04-15 12:54] LABS: *AMPHETAMINES SCREEN URINE Negative (Negative); *BARBITURATES SCREEN URINE Negative (Negative); *BENZODIAZEPINES SCREEN URINE Negative (Negative); Cannabinoids THC Positive (Negative); Cocaine Screen,Urine Negative (Negative); METHADONE URINE SCREEN Negative (Negative); OPIATES URINE SCREEN Negative (Negative); Tricyclic Antidepressants Negative (Negative)
[2021-04-15 14:14] LABS: COVID-19 PCR Negative (Negative)
--- NOTE | 2021-04-15 15:28 | PDOC.CMSAFED ---
- If Service Date Differs Date of service: 04/15/21 Time of Service: 15:28 Care Management Safety Plan Status: Voluntary - Reason for Wait Reason for Wait: Inpatient Admission Chief complaint: Naveed is a 45 year old male who presents in the ED for suicidal ideation. He has a history of anxiety, bipolar disorder, and depression. Naveed reportedly gave up his apartment recently as the plan was for him to reconcile with his ex-. She, however, changed her mind about reconciling with him, leaving him homeless and heart-broken. Naveed is depressed over the situation and feeling suicidal with a plan of not eating, drinking very little, and not taking his medications. Naveed is evaluated by Gaston Jimenez, [facility] Waste Machine Offbearer, and is found to meet criteria for a voluntary psychiatric hospitalization. [facility] is sending referrals to [facility] and [facility] for review, but neither facility has beds available today. All other psychiatric hospitals are full. VOLUNTARY FOR INPATIENT PSYCHIATRIC STABILIZATION. Patient is appropriate in all interactions since arriving at [facility]; Pt has demonstrated appropriate coping and communication skills, has articulated his or her needs and concerns and is fully engaged during staff interactions. A huddle is held at approximately 3:10 pm with Carmen, nursing printing supervisor, Gaston, ED provider, KAT Gonzalez, and GUILLERMO Campbell, in attendance. Safety plan has been established with patient, and care team, to adhere to patient goals, identify restrictions based on behavioral status, address nutrition, and determine allowed personal belongings, tools for hygiene and personal care. Determine level of activity including ambulation, level of supervision, visitors, and determine privileges based on behaviors and level of engagement by pt. SAFETY PLAN: 1. Will remain on suicide precautions. In Paper Clothes 2. Will remain in room under direct supervision of one-on-one staff at all times provided by CPSO, ROGERIO, AIR CARRIER MAINTENANCE INSPECTOR smoke control supervisor. 3. May have paper cups, plates, finger foods as well as a cardboard spoon with which to eat meals. 4. Follow [facility] Management of the Admitted Behavioral Health Patient policy. 5. Personal care: Shower with supervision and at RN discretion. 6. No personal belongings 7. Visitors-No visitors at this time 8. Activities: Soft cart items, coloring book, crayons, music tablet, television and remote if available, and other activities at RN discretion. 9. Bathroom privileges with escort while in the ED. May use bathroom available in room without restriction on Med/Surg. 10. Phone: May use hospital phone for incoming and outgoing telephone calls at RN discretion. 11. Due to VOLUNTARY status, if patient wishes to leave [facility], staff will contact [facility] Crisis Screener ([phone]) and On-Call Helicopter Specialist ([phone]) as soon as possible. In the event of elopement, notify [facility] Police ([phone]). Patient is currently voluntarily at [facility] and seeking inpatient admission when a bed becomes available. [facility] Frontline Waste Machine Offbearer will continue seeking placement. Please contact the Revenue Enforcement Collection Agent Helicopter Specialist ([phone]) and [facility] Waste Machine Offbearer ([phone]) for any needed changes in the Safety Plan. Safety plan has been provided to interdepartmental care team.
--- NOTE | 2021-04-15 15:35 | W.PM.HP.N ---
Date of service: 04/15/21 Time of Service: 15:36 Assessment and Plan Assessment and plan (1) Suicidal ideation: Status: Acute Assessment and plan: plan to starve himself but agreeable to eat now agrees to voluntary psychiatric inpatient care awaiting a bed CPSO in place (2) Bipolar disorder: Status: Chronic Assessment and plan: has not been on lithium for some time now (3) Depression: Status: Chronic Assessment and plan: agreeable to home medication (4) Discharge planning issues: Status: Acute Assessment and plan: case management and mental health following will be discharged to inpatient psychiatric care, voluntary when bed available discussed with Dr Chambers History of Present Illness History of Present Illness Chief Complaint: depression Narrative: This is a 45-year-old gentleman, past medical history of anxiety, bipolar, cannabis abuse, depression, chronic low back pain, presents to the ED today feeling suicidal. He states he has not taken his medication since Monday, has had decreased oral intake for at least 1 week primarily with solid foods, still drinking fluids. He has no acute medical concerns or complaints. Denies recent illness or trauma. He is currently cooperative with no behavioral issues. He was medically screened in the ED and was seen by mental health. He is agreeable to voluntary inpatient psychiatric care. Bed requests have been placed and unfortunately no beds available so he will be held here until one opens up. he is accepted under observation to hospitalist services. Review of Systems All systems reviewed & are unremarkable except as noted in HPI and below PFSH Medical History Anxiety Bipolar disorder Cannabis abuse Depression Headache Low back pain Neck pain Paresthesia Urinary frequency Surgical History No significant past surgical history Social History Smoking/Tobacco Use Status: Former Tobacco Use Smoking risk assessment performed?: Yes Alcohol Intake: current Alcohol Intake frequency: 3 or more drinks per day Drug use: Daily Substance use type: marijuana Details: Pt last used marijuana uses vape pen, this morning 0700am. Household members: spouse Housing: apartment Number of Children: 3 current occupation: [employer] What type of physical activity do you participate in: walking, independent ambulation and regular exercise Do you feel safe at home: Yes Do you feel safe in your relationship?: Yes Meds Allergies and Home Medications Allergies Allergy/AdvReac Type Severity Reaction Status Date / Time fluoxetine HCl [From Prozac] Allergy Severe Hives Unverified 04/15/21 11:27 venlafaxine Allergy Intermediate Unverified 04/15/21 11:27 Home Medications Medication Instructions Recorded Confirmed Type clonidine HCl 0.2 mg PO BID 01/14/21 04/15/21 History hydroxyzine HCl 50 mg PO 5X/DAY PRN 01/14/21 04/15/21 History mirtazapine 60 mg PO HS 01/14/21 04/15/21 History ibuprofen 200 mg tablet 200 mg PO Q4H PRN tab 01/25/21 04/15/21 History mirtazapine [Remeron] 30 mg PO QHS 04/15/21 04/15/21 History Exam Const General: cooperative, no acute distress, anxious and disheveled Orientation: alert, awake and oriented x3 HENMT Head: normal to inspection, normocephalic and atraumatic Face and sinus: normal facial exam Mouth: oral mucosae normal Eyes Eyelids: eyelids normal Conjunctivae: conjunctivae normal EOM: EOM intact bilaterally Neck Neck: supple Resp Effort & Inspection: normal respiratory effort and able to speak in complete sentences Auscultation: clear to auscultation bilaterally Cardio Rate: regular rate Rhythm: regular rhythm GI Palpation: soft and nontender Skin General skin exam: no rashes or lesions noted Neuro General: patient alert, patient awake, patient oriented x3, moves all extremities and no focal motor deficits Cognition: normal cognition Speech: speech normal Gait: normal gait Motor: muscle tone normal throughout Sensory Exam: no sensory deficits noted Extrem General: normal to inspection, full ROM, capillary refill normal, no pedal edema and no calf tenderness Psych Appearance: disheveled Mental Status: mental status grossly normal Speech and Movement: speech and movement normal Mood: anxious mood and dysthymic mood Affect: sad Attitude: cooperative Thought Process: normal Thought Content: suicidality Insight: limited Judgment: limited Results Labs Result diagrams: 04/15/21 11:42 04/15/21 11:42 Labs: Laboratory Results - last 24 hr 04/15/21 04/15/21 04/15/21 11:42 11:42 11:42 WBC 4.76 RBC 4.90 Hgb 15.1 Hct 43.1 MCV 88.0 MCH 30.8 MCHC 35.0 RDW 11.9 Plt Count 222 MPV 9.1 Immature Gran % 0.2 Neutrophils % 52.1 Lymphocytes % 32.1 Monocytes % 10.9 Eosinophils % 3.6 Basophils % 1.1 Nucleated RBC % 0 Absolute Neutrophils 2.48 Absolute Lymphocytes 1.53 Absolute Monocytes 0.52 Absolute Eosinophils 0.17 Absolute Basophils 0.05 Sodium 141 Potassium 3.9 Chloride 105 Carbon Dioxide 26.2 Anion Gap 9.8 BUN 16 Creatinine 1.0 Estimated GFR/1.73 m2 >= 60.00 Glucose 118 H Calcium 8.6 Total Bilirubin 0.4 AST 22 ALT 36 Alkaline Phosphatase 62 Total Protein 7.3 Albumin 4.1 TSH 0.75 Urine Color Urine Clarity Urine pH Ur Specific [place] Urine Protein Urine Ketones Urine Blood Urine Nitrite Urine Bilirubin Urine Urobilinogen Ur Leukocyte Esterase Urine RBC Urine WBC Ur Epithelial Cells Urine Crystals Urine Bacteria Urine Casts Urine Mucus Ur Culture Indicated? Urine Glucose Salicylates < 2.8 Urine Opiates Screen Urine Methadone Screen Acetaminophen < 2 Ur Barbiturates Screen Ur Tricyclics Screen Ur Amphetamines Screen U Benzodiazepines Scrn Urine Cocaine Screen Ur THC Screen Ethyl Alcohol < 3.0 COVID-19 Source SARS-CoV-2 (PCR) 04/15/21 04/15/21 04/15/21 12:30 12:30 12:45 WBC RBC Hgb Hct MCV MCH MCHC RDW Plt Count MPV Immature Gran % Neutrophils % Lymphocytes % Monocytes % Eosinophils % Basophils % Nucleated RBC % Absolute Neutrophils Absolute Lymphocytes Absolute Monocytes Absolute Eosinophils Absolute Basophils Sodium Potassium Chloride Carbon Dioxide Anion Gap BUN Creatinine Estimated GFR/1.73 m2 Glucose Calcium Total Bilirubin AST ALT Alkaline Phosphatase Total Protein Albumin TSH Urine Color Yellow Urine Clarity Clear Urine pH 7.0 Ur Specific [place] 1.020 Urine Protein 30 H Urine Ketones Negative Urine Blood Trace-intact H Urine Nitrite Negative Urine Bilirubin Negative Urine Urobilinogen 0.2 Ur Leukocyte Esterase Negative Urine RBC 5-10 H Urine WBC 0-2 Ur Epithelial Cells Rare Urine Crystals Negative Urine Bacteria Few Urine Casts Negative Urine Mucus Trace Ur Culture Indicated? Yes Urine Glucose Negative Salicylates Urine Opiates Screen Negative Urine Methadone Screen Negative Acetaminophen Ur Barbiturates Screen Negative Ur Tricyclics Screen Negative Ur Amphetamines Screen Negative U Benzodiazepines Scrn Negative Urine Cocaine Screen Negative Ur THC Screen Positive A Ethyl Alcohol COVID-19 Source Nasal/Nares SARS-CoV-2 (PCR) Negative Last Vital Signs Temp 36.8 C 04/15/21 11:02 Pulse 98 H 04/15/21 11:02 Resp 20 04/15/21 11:02 BP 147/84 H 04/15/21 11:02 Pulse Ox 97 04/15/21 11:02
[2021-04-15 16:45] VITALS: BP 126/83; PULSE 83; RESP 16; TEMP 36.3; O2SAT 99
--- NOTE | 2021-04-15 17:17 | PDOC.MHCN ---
Date of service: 04/15/21 Time of Service: 13:15 Mental Health Crisis Note Presenting Issue How did you arrive at the ED and why did you come: The client presents to [facility] ED with chief complaint of suicidal ideation, described as moderate to severe, while engaging in self-imposed starvation (no solid foods) for the past 10 days. No medication adherence since Monday04.10.21 other than PM rx 04.14.21. Current status is voluntary. Client contacted [facility] earlier in the day endorsing thoughts of wanting to after walking off his job. Precipitating Factors Client presents in standard-issue paper garments and sits up for duration of assessment. Appearance is disheveled with evidence of poor grooming and self-maintenance. Hyposthenic body habitus. Fully alert and oriented to time, person, place and global circumstance with no deficits in memory. Behaviorally calm, cooperative, open and engaged with assessment process. Disposition appears stable. Client exhibits extensive hand gesticulations emphasizing verbal report. Eye contact excellent. Speech is slightly stammered but understandable and coherent with some volubility, unpressured, with prompt latency of response. Mood reported as I didn't feel like living anymore but it's a bit better now talking with you with mixed depressive / euthymic affect matching verbal content. Appetite disruption (see below) with sleep dysregulation (nighttime awakening). No presenting evidence or report of delusions, hallucinations (A/V/O/S) or psychotic thought process. Insight and judgment appear sound on presenting issues and decision to seek care. Client endorses current SI, described as moderate to severe, with worsening depressive features (lack of interest, motivation, thoughts of hopelessness) that have increased over past 3 weeks. He reports ceasing solid food intake for the past 10 days, describing this as a Suicide attempt and a way to seek help? and discontinuing his medications other than PM sleep aids on Monday04.10.21. He verbalized understanding of the consequences stopping his medication regime. He endorses several other methods of ending his life including hanging, drowning, and O/D, with no verification of intent or a specific plan (date/time) in relation to proposed methods. He cites ongoing interpersonal conflict with his of the past 5 years, with whom he still lives with but is from, and work-related stressors as primary triggering factors. He reports a negative and antagonistic relationship with his SA counselor at [facility] and has requested transfer of care to a different provider. Relieving factors include hobbies (fishing) and console sarahy. No current HI/SIB, intent or plan and no report of recent intentional self-harming behaviors other than those disclosed. Client expresses some future-oriented thinking on seeking help and states I want to live. I want to try and make it work. I just got my license back after 23yrs. My is me and it?s been really tough. I don't know how to deal with it other than talking to someone. PHQ-9 - Complete CAGE-AID - Complete PC-PTSD-5 - Complete C-SSRS - Complete Disposition BEHAVIOR: Calm, cooperative, appropriate EYE CONTACT: Excellent MOOD: I didn't feel like living but it's a bit better now talking with you. AFFECT: Mixed depressed / euthymic APPETITE: Dysregulation - see above SLEEP(trouble falling/staying asleep: Dysregulation - nighttime awakenings Plan The client has agreed to remain at [facility] on voluntary status and await in-patient psychiatric placement for mood stabilization, medication review, and safety. Alternatives to hospitalization were discussed such as crisis placement and discharge home, however given recent behaviors and statements in conjunction with medication adherence concerns, this financial underwriter recommends referral for care to appropriate facility to address presenting issues. Referrals faxed to following accepting hospitals: [facility], [facility]. No current capacity. If the client wishes to discharge home prior to confirmation of placement he will be reassessed accordingly by [facility]. Signature Clinician's Name/Title: Pedro Jimenez [facility] TITO Clinician / HP
[2021-04-15] MEDS: cloNIDine 0.1 MG TAB 0.2 MG PO (22:10)
[2021-04-15] MEDS: Mirtazapine 15 MG TAB 60 MG PO (22:11)
[2021-04-15] MEDS: hydrOXYzine HCL 50 MG TAB PO (22:11)
[2021-04-15 22:19] VITALS: BP 158/90; PULSE 80; RESP 16; TEMP 36.5; O2SAT 98
[2021-04-15] MEDS: Ibuprofen 200 MG TAB PO (22:24)
[2021-04-16 08:41] VITALS: BP 124/78; PULSE 71; RESP 20; TEMP 36.8; O2SAT 98
[2021-04-16] MEDS: cloNIDine 0.1 MG TAB 0.2 MG PO (08:52)
--- NOTE | 2021-04-16 10:47 | PDOC.CMSAFE ---
- If Service Date Differs Date of service: 04/16/21 Time of Service: 10:47 Care Management Safety Plan Status: Voluntary - Guarianship if Applicable Guardianship: Other - Reason for Wait Reason for Wait: Inpatient Admission Safety plan has been established with patient, and care team, to adhere to patient goals, identify restrictions based on behavioral status, address nutrition, and determine allowed personal belongings, tools for hygiene and personal care. Determine level of activity including ambulation, level of supervision, visitors, and determine privileges based on behaviors and level of engagement by pt. SAFETY PLAN: 1. Will remain on suicide precautions. In Paper Clothes 2. Will remain in room under direct supervision of one-on-one staff at all times provided by CPSO, GLUCOSE AND SYRUP WEIGHER, GREEN MARKETING SPECIALIST emergency worker. 3. May have paper cups, plates, finger foods as well as a cardboard spoon with which to eat meals. 4. Follow [facility] Management of the Admitted Behavioral Health Patient policy. 5. Personal care: Shower with supervision and at RN discretion. 6. No personal belongings 7. Visitors-No visitors at this time 8. Activities: Soft cart items, coloring book, crayons, music tablet, television and remote if available, and other activities at RN discretion. 9. Bathroom privileges with escort while in the ED. May use bathroom available in room without restriction on Med/Surg. 10. Phone: May use hospital phone for incoming and outgoing telephone calls at RN discretion. 11. Due to VOLUNTARY status, if patient wishes to leave [facility], staff will contact [facility] Crisis Screener ([phone]) and On-Call Application Assistant ([phone]) as soon as possible. In the event of elopement, notify [facility] Police ([phone]). Patient is currently voluntarily at [facility] and seeking inpatient admission when a bed becomes available. [facility] Frontline Frankfurter Inspector will continue seeking placement. Please contact the Gas Worker Application Assistant ([phone]) and [facility] Frankfurter Inspector ([phone]) for any needed changes in the Safety Plan. Safety plan has been provided to interdepartmental care team.
--- NOTE | 2021-04-16 14:21 | W.PM.DS.N ---
Date of service: 04/16/21 Time of Service: 14:21 DS: Diagnosis Discharge Diagnosis (1) Suicidal ideation: Status: Acute (2) Bipolar disorder: Status: Chronic (3) Depression: Status: Chronic Discharge Plan Disposition Patient Disposition: HOME Condition: Stable Discharge Details Reason For Visit: Major Depression Admit Date/Time: 04/15/21 15:08 Admit Provider: Radha Chambers Attending Provider: Radha Chambers Primary Care Provider: Olu Goel V Hospital Course Hospital Course: This is a 45-year-old gentleman, past medical history of anxiety, bipolar, cannabis abuse, depression, chronic low back pain, presents to the ED today feeling suicidal. He states he has not taken his medication since Monday, has had decreased oral intake for at least 1 week primarily with solid foods, still drinking fluids. He has no acute medical concerns or complaints. Denies recent illness or trauma. He is currently cooperative with no behavioral issues. He was medically screened in the ED and was seen by mental health. He was agreeable to voluntary inpatient psychiatric care. Bed requests have been placed and unfortunately no beds available so he was held here until one opens up. started taking his medication and his mood stabilized. mental health continued to follow and plan is for discharge to home for outpatient treatment. He is agreeable to taking his medication and eating which he has been complying with while hospitalized. discharge discussed with Dr Giron. Home Meds and New Rx's Prescriptions: Continued hydroxyzine HCl 50 mg Tablet 50 mg PO 5X/DAY PRNRF: 0 clonidine HCl 0.2 mg Tablet 0.2 mg PO BID RF: 0 mirtazapine 30 mg Tablet 60 mg PO HS RF: 0 ibuprofen 200 mg tablet 200 mg PO Q4H PRNRF: 0 lamotrigine 100 mg tablet 100 mg PO DAILY RF: 0 Discharge Instructions Instructions: Depression (DC), Suicide Prevention (DC) Additional Instructions: take all medication as directed. follow discharge plan put in place by mental health. return to the ED if needed for new or worsening symptoms Referrals: Olu Goel V [Primary Care Provider] - Activity:: Activity as Tolerated Equipment/Supplies:: No Equipment Needed Diet:: As Tolerated Discharge Orders Discharge Orders: Discharge Order (Routine); Ordered 04/16/21 Ordered By: Emmie Armenta DS: Summary Time Spent with Patient providing and/or coordinating discharge services: Less than 30 minutes Status at Discharge Functional status at discharge: independent ambulation Overall status at discharge: patient is progressing back to baseline Mental Status: mental status grossly normal Speech and Movement: speech and movement normal Mood: anxious mood and dysthymic mood Affect: sad Exam Const General: cooperative, no acute distress, anxious and disheveled Orientation: alert, awake and oriented x3 HENMT Head: normal to inspection, normocephalic and atraumatic Face and sinus: normal facial exam Mouth: oral mucosae normal Eyes General: appearance normal, both eyes and all related structures Alignment and Position: alignment normal Periorbital: periorbital findings normal Eyelids: eyelids normal Conjunctivae: conjunctivae normal Sclera: sclerae normal Cornea: corneas normal Pupils: PERRL EOM: EOM intact bilaterally Direct ophthalmoscopy: normal light reflex Neck Neck: supple Resp Effort & Inspection: normal respiratory effort and able to speak in complete sentences Auscultation: clear to auscultation bilaterally Cardio Rate: regular rate Rhythm: regular rhythm GI Palpation: soft and nontender Back/Spine/Pelvis Back: back tenderness (Diffuse mild lumbar) Skin General skin exam: no rashes or lesions noted Neuro General: patient alert, patient awake, patient oriented x3, moves all extremities and no focal motor deficits Cognition: normal cognition Speech: speech normal Gait: normal gait Motor: muscle tone normal throughout Sensory Exam: no sensory deficits noted Extrem General: normal to inspection, full ROM, capillary refill normal, no pedal edema and no calf tenderness Psych Appearance: disheveled Mental Status: mental status grossly normal Speech and Movement: speech and movement normal Mood: anxious mood and dysthymic mood Affect: sad Attitude: cooperative Thought Process: normal Thought Content: suicidality Insight: limited Judgment: limited DS: Data Vitals/I&O Vitals and I&O: Vital Signs Temperature 36.8 C 04/16/21 08:41 Temperature Source Tympanic 04/16/21 08:41 Pulse 71 04/16/21 08:41 Pulse Rhythm Regular 04/16/21 05:34 Respiratory Rate 20 04/16/21 08:41 Respiratory Effort Non-Labored 04/16/21 05:34 Respiratory Depth Normal 04/16/21 05:34 Respiratory Pattern Normal 04/16/21 05:34 Blood Pressure 124/78 04/16/21 08:41 Blood Pressure Position Sitting 04/15/21 11:02 Pulse Oximetry 98 04/16/21 08:41 Oxygen Delivery Method Room Air 04/16/21 08:41 Oxygen Flow Rate 0 04/16/21 08:41 Pain Level 0 04/16/21 08:41 Comment 04/15/21 11:02 Intake & Output 04/15/21 04/16/21 04/16/21 23:59 11:59 23:59 Intake Total 2005 280 / 460 180 / 460 Balance 2005 280 / 460 180 / 460 Intake: Oral 2005 280 / 460 180 / 460 Other: Urine Color Yellow Urine Appearance Clear Clear Urine Odor None Comment indept w/ voiding in bathroom. Denies painful urinations. Voiding Methods Toilet Toilet Toilet Data Completed and Pending Labs on day of discharge: Preliminary micro results at discharge 04/15/21 12:30 Urine Culture - Preliminary Urine - Reflex from [facility] Medical History Anxiety Bipolar disorder Cannabis abuse Depression Headache Low back pain Neck pain Paresthesia Urinary frequency Surgical History No significant past surgical history Social History Smoking/Tobacco Use Status: Former Tobacco Use Smoking risk assessment performed?: Yes Alcohol Intake: current Alcohol Intake frequency: 3 or more drinks per day Drug use: Daily Substance use type: marijuana Details: Pt last used marijuana uses vape pen, this morning 0700am. Household members: spouse Housing: apartment Number of Children: 3 current occupation: [employer] What type of physical activity do you participate in: walking, independent ambulation and regular exercise Do you feel safe at home: Yes Do you feel safe in your relationship?: Yes
--- NOTE | 2021-04-16 14:45 | CMDISCH_ITS ---
- If Service Date Differs Date of service: 04/16/21 Time of Service: 14:45 Care Management Discharge Reason for Hospitalization: SI Discharge Plan: Naveed will be discharged home with no new services. He will follow up with his community providers and plan of care. He has contracted for safety with Gaston Jimenez from [facility]. Naveed will transport via RCT coordinated by CM. Patient/Family Education Needs: Discharge instructions, safety plan, follow up plan, Ask Me Three - MH Services (Omit if N/A) Current MH Services: Other - Disposition Disposition: Community Discharge Transport via of: Other
--- NOTE | 2021-04-16 15:03 | W.INMHPGNOTE ---
Date of service: 04/16/21 Time of Service: 13:50 Mental Health Crisis Note Presenting Issue How did you arrive at the ED and why did you come: The client presented to [facility] ED 7.05.29 with chief complaint of suicidal ideation, described as moderate to severe, while engaging in self-imposed starvation (no solid foods) for the past 10 days. No medication adherence since Monday04.10.21 other than PM rx 7.04.28. Current status is voluntary. He is seen for a follow-up assessment today. Precipitating Factors Client presents in standard-issue paper garments. He sits up and turns off the TV in room for assessment. Appearance mildly disheveled. Fully alert and oriented to time, person, place, and global circumstance. No deficits in memory or fund of knowledge noted. Client presents as calm and relaxed. Eye contact good. Decreased speech output today as compared to yesterday, low volume, unpressured. Mood reported as A little better today. with mildly subdued / euthymic affect. No presenting evidence of delusions, hallucinations (A/V/O/S) or psychotic thought process. Insight and judgement appear sound. Client denies current SI/HI/SIB, intent or plan. He reports eating. drinking fluids, showering and tending to his functional needs today without incident. He reports feeling stable and safe enough to discharge home and explained that he plans to continue maintaining his daily needs and taking medications as prescribed. He states I know putting me back into the community may not help but I don't feel like I need in-patient treatment right now. C-SSRS (SHORTFORM) - Complete Disposition BEHAVIOR: Calm, relaxed EYE CONTACT: Good MOOD: A little better today AFFECT: Mixed subdued / euthymic APPETITE: Client ate scheduled meals w/o incident SLEEP(trouble falling/staying asleep: No reported issues - I slept great - like a baby. Plan Client disposition appears stable and safe to discharge. The client spoke with his ex- about returning to their apartment and she has agreed for him to return home. He will follow-up for transfer of care for SA counseling to a different provider. If coping skills are not working, client will call [facility] as needed and understands that if his symptoms rise to the level of emergent he will dial 911. Signature Clinician's Name/Title: Pedro Jimenez, [facility] clinician / [facility]
== END 2021-04-16 16:21 | disposition home or self-care (01) ==
LOC: ER 16:13 → MS 16:57
PROVIDERS: Admitting Provider Internal Medicine; Emergency Provider Physician Assistant; PCP Physician Assistant Medical; Visit Provider Internal Medicine
DX: R45.851 Suicidal ideations (principal); F31.9 Bipolar disorder, unspecified; Z20.822 Contact with and (suspected) exposure to COVID-19; F41.9 Anxiety disorder, unspecified; G89.29 Other chronic pain; M54.5 Low back pain; F12.10 Cannabis abuse, uncomplicated; R20.2 Paresthesia of skin; M54.2 Cervicalgia
CPT/HCPCS: 36415; 80053; 80307; 87635; 99285; 80320; 80329; 81003; 81015; 84443; 85025; 87086; 99217; 99220; G0378; J3490

== ENCOUNTER 2021-06-23 10:53 | Emergency (ER) | payer MEDICAID, SELFPAY ==
[2021-06-23] VITALS (14 sets, daily range): BP systolic 142–164; BP diastolic 87–103; PULSE 60–81; RESP 15–28; TEMP 36.6; O2SAT 97–99
--- NOTE | 2021-06-23 11:30 | RT.EKG_ITS ---
APPROVED REPORT Exam: Resting ECG Reason for Exam: weakness left sided Patient Location: E HR:62 bpm ECG Measurements Heart Rate 62 AXIS VT 165 P 67 QRSd 80 QRS 92 QT 383 T 55 QTc 391 Conclusion Sinus rhythm...normal P axis, V-rate 60- 99
--- NOTE | 2021-06-23 11:30 | DI.CT_ITS ---
Exam(s) CT HEAD WO EXAM: CT HEAD WO CLINICAL HISTORY: weakness left sided. TECHNIQUE: Imaging Protocol: Axial computed tomography images with coronal and sagittal reformatted images were created and reviewed COMPARISON: CT CT HEAD WO from 08/23/2018 FINDINGS: Ventricles and Extra axial spaces: Normal in size and morphology for the patient's age. Hemorrhage: None. Cerebral parenchyma: No acute territorial infarct. The rounded lucency in the low right frontal lobe is unchanged. Midline shift: None. Brainstem/Cerebellum: Normal. Calvarium: Normal. Visualized Paranasal sinuses/Mastoids: Clear. Soft Tissues: Unremarkable. IMPRESSION: No acute intracranial process. RADIATION DOSE DELIVERED: 618.65mGy.cm Total DLP DATA REPOSITORY: All CT scans at this facility are submitted to the National Radiology Data Registry (NRDR) Dose Index Registry (DIR) with the [employer] (ACR). RADIATION OPTIMIZATION: All CT scans at this facility use at least one of these dose optimization te chniques: automated exposure control; mA and/or kV adjustment per patient size (includes targeted exa ms where dose is matched to clinical indication); or iterative reconstruction.
[2021-06-23 11:47] LABS: Bilirubin Negative (Negative); Blood Negative (Negative); Clarity Clear (Clear); Glucose Negative (Negative); Ketones Negative (Negative); Leukocyte Esterase Negative (Negative); Nitrite Negative (Negative); Specific Gravity 1.015 (1.005-1.025); Urobilinogen 0.2 EU/dL (Up TO 0.2); pH 6.5 (5-8)
[2021-06-23 11:49] LABS: Abs Immature Grans 0.01 10^3/uL (0.0-0.06); Absolute Basophil Count 0.03 10^3/uL (0.0-0.2); Absolute Eosinophil Count 0.09 10^3/uL (0.0-0.7); Absolute Lymphocyte Count 1.71 10^3/uL (1.2-3.4); Absolute Monocyte Count 0.45 10^3/uL (0.1-0.8); Absolute Neutrophil Count 2.38 10^3/uL (1.2-6.7); Basophils % 0.6; Eosinophils % 1.9; HCT 40.5 % (40.0-50.0); HGB 13.9 g/dL (13.5-17.5); Immature Grans % 0.2; Lymphocytes % 36.6; MCHC 34.3 % (32.0-36.0); MCV 90.4 fL (80-95); MPV 9.8 fL (8.0-11.0); Monocytes % 9.6; Neutrophils % 51.1; Nucleated RBC 0 %; Platelet Count 218 10^3/uL (130-400); RBC 4.48 10^6/uL (4.36-5.78); RDW 12.3 % (11.8-14.1); WBC 4.67 10^3/uL (4.4-10.8)
--- NOTE | 2021-06-23 11:57 | W.ED.GENAD ---
Discharge Plan Disposition Patient Disposition: HOME Condition: Stable Discharge Details Clinical Impression: Acute left lumbar radiculopathy, Malaise Primary Care Provider: Lavell Moore ED Provider: Lisa Mccarty Home Meds and New Rx's Prescriptions: New prednisone 20 mg tablet 40 mg PO DAILY Qty: 10 RF: 0 Continued hydroxyzine HCl 50 mg Tablet 50 mg PO 5X/DAY PRNRF: 0 clonidine HCl 0.2 mg Tablet 0.2 mg PO BID RF: 0 mirtazapine 30 mg Tablet 60 mg PO HS RF: 0 ibuprofen 200 mg tablet 200 mg PO Q4H PRNRF: 0 lamotrigine 100 mg tablet 100 mg PO DAILY RF: 0 gabapentin 300 mg capsule 300 mg PO DAILY RF: 0 Discharge Instructions Additional Instructions: Take prednisone as prescribed Follow-up with your doctor in 1 to 2 days for reevaluation Your CAT scan of your head looks grea and your labs are within normal limits Please return should you have new or worsening complaints Referrals: Lavell Moore [Primary Care Provider] - Discharge Data Discharge Date/Time-TO BE ENTERED AT DEPARTURE: 06/23/21 13:12 Medical Decision Making Patient is alert, oriented, asks decisional capacity with a nonfocal neurological exam, I did a CT head and basic labs did not show acute pathology Patient is no longer on lithium or I would consider lithium three He has been off this medication for an extended period of time He is ambulatory with steady gait, I did look at the picture that he had on his phone, I do not see any evidence of face asymmetry He is given low threshold to return should he have new or worsening complaints He is discharged home in stable condition with stable vitals He does have a lumbar radiculopathy which is worsening and I did trial him on some prednisone for this Sounds like he is scheduled for some injections but he has delayed this secondary to bedbug infestation in his home There is no clinical evidence of cauda equina syndrome, positive straight leg raise, strength and sensation intact distally HPI General Mode of arrival: ambulatory. Date/Time Provider Initiated Documentation: 06/23/21 11:16. Limitations to Documentation: no limitations. Information obtained by: patient. HPI Narrative: This 45-year-old male with history of anxiety, depression presents with report of intermittent trouble with memory, and worsening extremity weakness and left lower leg weakness. He denies any chest pain or shortness of breath. He denies dizziness or weakness. He states he looked in a picture that he took himself last night and thought that he had a facial droop. He states he is under a lot of stress. He denies any new medications. He denies any fever or chills. He denies any additional complaints at this time. He denies any urinary complaints. He denies falls or injuries. He denies any illicit drug use. Related Data Home Medications Medication Instructions Recorded Confirmed clonidine HCl 0.2 mg PO BID 01/14/21 06/23/21 hydroxyzine HCl 50 mg PO 5X/DAY PRN 01/14/21 06/23/21 mirtazapine 60 mg PO HS 01/14/21 06/23/21 ibuprofen 200 mg tablet 200 mg PO Q4H PRN tab 01/25/21 06/23/21 lamotrigine 100 mg PO DAILY 04/16/21 06/23/21 gabapentin 300 mg PO DAILY 06/23/21 06/23/21 prednisone 40 mg PO DAILY #10 tab 06/23/21 Previous Rx's Medication Instructions Recorded prednisone 40 mg PO DAILY #10 tab 06/23/21 Allergies Allergy/AdvReac Type Severity Reaction Status Date / Time fluoxetine HCl [From Prozac] Allergy Severe Hives Verified 06/23/21 11:06 venlafaxine Allergy Intermediate Verified 06/23/21 11:06 General Stated Complaint: CVA/TIA FELIZ: 3 Review of Systems All systems reviewed & are unremarkable except as noted in HPI and below PFSH Medical History Anxiety Bipolar disorder Cannabis abuse Depression Headache Low back pain Neck pain Paresthesia Urinary frequency Surgical History No significant past surgical history Social History Smoking/Tobacco Use Status: Former Tobacco Use Smoking risk assessment performed?: Yes Alcohol Intake: current Alcohol Intake frequency: 3 or more drinks per day Drug use: Daily Substance use type: marijuana Household members: spouse Housing: apartment Number of Children: 3 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 Tenderness Skin General skin exam: no rashes or lesions noted Neuro General: patient alert, patient oriented x3 and CN's II-XI intact bilaterally Cranial Nerves: PERRL Speech: speech normal Gait: normal gait Motor: muscle tone normal throughout and strength 5/5 throughout Sensory Exam: no sensory deficits noted Other: Negative [id number], negative heel doyle, negative pronator drift Extrem General: normal to inspection Other: Distal pulses intact Psych Appearance: grossly normal and well kempt Course Vital Signs Vital signs: Vital Signs Temperature 36.6 C 06/23/21 11:02 Pulse 64 06/23/21 11:02 Respiratory Rate 20 06/23/21 11:02 Blood Pressure 142/100 H 06/23/21 11:02 Pulse Oximetry 97 06/23/21 11:02 Temperature 36.6 C 06/23/21 11:02 Temperature Source Skin 06/23/21 11:02 Pulse 81 06/23/21 11:22 Pulse 66 06/23/21 11:48 Respiratory Rate 18 06/23/21 11:48 Respiratory Effort Non-Labored 06/23/21 11:20 Respiratory Depth Normal 06/23/21 11:20 Respiratory Pattern Normal 06/23/21 11:20 Blood Pressure 150/103 H 06/23/21 11:22 Blood Pressure Mean 113 06/23/21 11:22 Blood Pressure Position Supine 06/23/21 11:02 Pulse Oximetry 97 06/23/21 11:02 Oxygen Delivery Method Room Air 06/23/21 11:02 Oxygen Flow Rate 0 06/23/21 11:02 Pain Level 10 06/23/21 11:02 Comment 06/23/21 11:02 Lab/Test Results Lab/Test Results: Laboratory Tests Range/Units 06/23/21 06/23/21 11:10 11:15 WBC (4.4-10.8) 10^3/uL 4.67 RBC (4.36-5.78) 10^6/uL 4.48 Hgb (13.5-17.5) g/dL 13.9 Hct (40.0-50.0) % 40.5 MCV (80-95) fL 90.4 MCH (27.0-33.0) pg 31.0 MCHC (32.0-36.0) % 34.3 RDW (11.8-14.1) % 12.3 Plt Count (130-400) 10^3/uL 218 MPV (8.0-11.0) fL 9.8 Immature Gran % 0.2 Neutrophils % 51.1 Lymphocytes % 36.6 Monocytes % 9.6 Eosinophils % 1.9 Basophils % 0.6 Nucleated RBC % % 0 Absolute Neutrophils (1.2-6.7) 10^3/uL 2.38 Absolute Lymphocytes (1.2-3.4) 10^3/uL 1.71 Absolute Monocytes (0.1-0.8) 10^3/uL 0.45 Absolute Eosinophils (0.0-0.7) 10^3/uL 0.09 Absolute Basophils (0.0-0.2) 10^3/uL 0.03 Urine Color (Yellow) Yellow Urine Clarity (Clear) Clear Urine pH (5-8) 6.5 Ur Specific [place] (1.005-1.025) 1.015 Urine Protein (Negative) mg/dL Negative Urine Ketones (Negative) mg/dL Negative Urine Blood (Negative) Negative Urine Nitrite (Negative) Negative Urine Bilirubin (Negative) Negative Urine Urobilinogen (Up TO 0.2) EU/dL 0.2 Ur Leukocyte Esterase (Negative) Negative Urine Glucose (Negative) mg/dL Negative
[2021-06-23 12:03] LABS: ALT 28 U/L (16-63); AST 19 U/L (15-37); Albumin 3.9 g/dL (3.4-5.0); Alkaline Phosphatase 53 U/L (46-116); Anion Gap 4.9 mmol/L (3-11); BUN 15 mg/dL (7-18); Bilirubin, Total 0.3 mg/dL (0.2-1.0); CO2 29.1 mmol/L (21.0-32.0); Calcium 8.7 mg/dL (8.5-10.1); Chloride 110 mmol/L (98-107); Glucose 100 mg/dL (74-106); Sodium 144 mmol/L (136-145); Total Protein 6.8 g/dL (6.4-8.2)
[2021-06-23 12:08] LABS: Troponin I < 0.05 ng/mL (<0.06)
[2021-06-23 12:14] LABS: TSH 0.55 uIU/mL (0.36-3.74)
== END 2021-06-23 13:12 | disposition home or self-care (01) ==
LOC: ER 14:03
PROVIDERS: Emergency Provider Physician Assistant; PCP Physician Assistant
DX: M54.16 Radiculopathy, lumbar region (principal); R53.81 Other malaise; R41.3 Other amnesia
CPT/HCPCS: 36415; 80053; 93005; 99285; 70450; 81003; 84443; 84484; 85025; 93010

== ENCOUNTER 2021-07-23 02:46 | Outpatient (CLI) | payer MEDICAID, SELFPAY ==
[2021-07-23 12:37] LABS: Abs Immature Grans 0.02 10^3/uL (0.0-0.06); Absolute Basophil Count 0.05 10^3/uL (0.0-0.2); Absolute Eosinophil Count 0.13 10^3/uL (0.0-0.7); Absolute Monocyte Count 0.63 10^3/uL (0.1-0.8); Absolute Neutrophil Count 3.86 10^3/uL (1.2-6.7); Basophils % 0.7; Eosinophils % 1.9; HCT 40.2 % (40.0-50.0); HGB 13.8 g/dL (13.5-17.5); Immature Grans % 0.3; Lymphocytes % 30.9; MCHC 34.3 % (32.0-36.0); MCV 87.4 fL (80-95); MPV 9.1 fL (8.0-11.0); Monocytes % 9.3; Neutrophils % 56.9; Nucleated RBC 0 %; Platelet Count 262 10^3/uL (130-400); RDW 12.3 % (11.8-14.1); RDW-SD 39.6 fL; WBC 6.79 10^3/uL (4.4-10.8)
[2021-07-23 13:36] LABS: ALT 29 U/L (16-63); AST 18 U/L (15-37); Alkaline Phosphatase 60 U/L (46-116); Anion Gap 7.6 mmol/L (3-11); BUN 19 mg/dL (7-18); Bilirubin, Total 0.3 mg/dL (0.2-1.0); CO2 29.4 mmol/L (21.0-32.0); CREATININE 1.2 mg/dL (0.70-1.30); Chloride 106 mmol/L (98-107); Glucose 106 mg/dL (74-106); Potassium 3.7 mmol/L (3.5-5.1); Sodium 143 mmol/L (136-145); TSH 0.69 uIU/mL (0.36-3.74); Total Protein 6.8 g/dL (6.4-8.2)
== END 2021-07-23 02:47 | disposition home or self-care (01) ==
LOC: LBO 02:46
PROVIDERS: PCP Physician Assistant; Visit Provider Counselor Addiction (Substance Use Disorder)
DX: F33.1 Major depressive disorder, recurrent, moderate (principal)
CPT/HCPCS: 36415; 80053; 80069; 84443; 85025

== ENCOUNTER 2021-11-25 02:38 | Outpatient (CLI) | payer MEDICAID, SELFPAY ==
[2021-11-25 10:23] LABS: Lithium 0.4 mmol/l (0.6-1.2)
== END 2021-11-25 02:39 | disposition home or self-care (01) ==
LOC: LBO 02:38
PROVIDERS: PCP Physician Assistant; Visit Provider Counselor Addiction (Substance Use Disorder)
DX: F33.1 Major depressive disorder, recurrent, moderate (principal)
CPT/HCPCS: 36415; 80178

== ENCOUNTER 2022-01-11 04:28 | Outpatient (CLI) | payer MEDICAID, SELFPAY ==
[2022-01-11 12:26] LABS: Albumin 4.3 g/dL (3.4-5.0); Anion Gap 9.5 mmol/L (3-11); BUN 17 mg/dL (7-18); CO2 28.5 mmol/L (21.0-32.0); CREATININE 1.2 mg/dL (0.70-1.30); Calcium 9.8 mg/dL (8.5-10.1); Chloride 101 mmol/L (98-107); Glucose 119 mg/dL (74-106); Potassium 4.7 mmol/L (3.5-5.1); Sodium 139 mmol/L (136-145)
[2022-01-11 12:27] LABS: Lithium 0.9 mmol/l (0.6-1.2)
[2022-01-11 12:41] LABS: PHOSPHORUS 4.2 mg/dL (2.6-4.7)
== END 2022-01-11 04:29 | disposition home or self-care (01) ==
LOC: LBO 04:28
PROVIDERS: PCP Physician Assistant; Visit Provider Counselor Addiction (Substance Use Disorder)
DX: F33.1 Major depressive disorder, recurrent, moderate (principal); Z51.81 Encounter for therapeutic drug level monitoring; Z79.899 Other long term (current) drug therapy
CPT/HCPCS: 36415; 80069; 80178

== ENCOUNTER 2022-03-02 12:07 | Outpatient (CLI) | payer MEDICAID, SELFPAY ==
--- NOTE | 2022-03-02 06:00 | DI.RAD_ITS ---
Exam(s) XR PAIN CLINIC LUMBAR SP 2V EXAM: XR PAIN CLINIC LUMBAR SP 2V CLINICAL HISTORY: DX: Lumbar Spondylosis TECHNIQUE: 2D and realtime digital imaging was performed. CONTRAST MATERIAL: Refer to procedure report. COMPARISON: No exams were available for comparison FINDINGS: Fluoroscopy was provided for Dr. Fernandez during the performance of a radiofrequency ablation. Please r efer to the procedure report for complete details. Ka,r=11.43 mGy IMPRESSION:
[2022-03-02 12:49] VITALS: BP 104/73; PULSE 68; RESP 20; TEMP 37.1; O2SAT 99
[2022-03-02] MEDS: Midazolam 2 MG/2 ML VIAL IVP (13:40)
[2022-03-02] MEDS: fentaNYL 100 MCG/2 ML VIAL IVP ×2 (13:41→13:45)
[2022-03-02 14:24] VITALS: BP 143/93; PULSE 68; RESP 14; O2SAT 98
[2022-03-02] MEDS: Bupivacaine 0.5% Pres-Free 10 ML VIAL IJ (14:25)
--- NOTE | 2022-03-02 14:25 | PDOC.PAIN ---
Pain Clinic Procedure Note Procedure Note Procedure Note: Bilateral Lumbar Radiofrequency with Coolief Machine PROCEDURE NOTE Date of Service: March 02, 2022 Patient: Naveed Uribe Provider: Ankur Fernandez DO, MPH Pre Operative Diagnosis: Lumbosacral Spondylosis without Myelopathy Post Operative Diagnosis: Same Post procedure pain; VAS= 7/10 PROCEDURE: Radiofrequency Ablation of medial branches - Bilateral L3 L4 L5 and lateral branches of bilateral S1. This procedure is treating the bilateral L4-L5 and L5-S1 facet joints. Naveed Uribe was brought into the fluoroscopy suite and positioned into the prone position on the fluoroscopy table and allowed to adjust to a position of comfort. A grounding pad was placed on the left thigh. The lumbar region was widely prepped with a chloraprep solution, allowed to air dry and draped in standard sterile surgical fashion. Local anesthesia was provided by 4 mL of 2% Lidocaine delivered with a 25g needle. A 17g 100 mm radiofrequency introducer needle was placed to the planned anatomic targets guided with intermittent fluoroscopy with a perpendicular approach to terminally place at the junction of the superior articular process and the transverse process of the bilateral L4 L5, the base of the sacral ala on the bilateral for the L5 medial branch nerve and the area between base of the sacral ala to the S1 foramen bilaterally. The stylets were removed and radiofrequency probes with a 4mm active tip were then inserted. Needle tip position of the probes was verified in the AP, oblique, and lateral views. At each site, the medial branch nerve was stimulated at 2 Hz to a maximum 1-2 volts determined to finalize safe needle and electrode placement. The patient was awake and responsive during this portion of the procedure. Each target was anesthetized with 1-2 mL of 2% Lidocaine for anesthesia for lesioning and then each target was lesioned at 80 degrees Celsius for 2 minutes and 30 seconds. Tissue impedences were noted to be between 250 and 500 Ohms. Electrodes and needles were then removed and bandages placed over the needle placement sites, the patient then returned to the supine position on a stretcher and transported to the recovery room without hemodynamic, neurologic, or allergic reactions. Fluoroscopic images were printed for hard copy recording and digitally archived. POST PROCEDURE EVALUATION: IMPRESSION: 1. Summary of procedure. Medication given is documented in the MAR. 2. The patient will be contacted in 1-3 weeks 3. Estimated Blood Loss: <5 mls 4. Fluoroscopy time: Documented in the EMR. Follow up plans and appointments were discussed with the Naveed . Post procedure instruction was given as documented in nursing documentation and having met discharge criteria, Naveed was discharged from the [facility]. COMMENTS: No apparent complications. Post-procedure pain: VAS= 1/10. F/U with our office as needed. I personally performed this entire procedure. Ankur Fernandez DO, MPH [facility]-Pain Management [facility] for [facility] Management
[2022-03-02] MEDS: Lidocaine 2% Multi-Dose 20 ML VIAL IJ (14:26)
[2022-03-02] MEDS: methylPREDNISolone ACETATE 40 MG/ML VIAL IJ (14:26)
[2022-03-02] MEDS: Lactated Ringers 500 ML 80 ML IV (14:41)
== END 2022-03-02 12:08 | disposition home or self-care (01) ==
LOC: PC 12:07
PROVIDERS: PCP Physician Assistant; Visit Provider Preventive Medicine Occupational Medicine
DX: M47.817 Spondylosis without myelopathy or radiculopathy, lumbosacral region (principal)
CPT/HCPCS: 64635; 64636; 72100; J1030; J2250; J3010; J3490

== ENCOUNTER 2022-03-16 03:45 | Outpatient (CLI) | payer MEDICAID, SELFPAY ==
[2022-03-16 10:42] LABS: Albumin 3.7 g/dL (3.4-5.0); Anion Gap 9.7 mmol/L (3-11); BUN 14 mg/dL (7-18); CO2 25.3 mmol/L (21.0-32.0); CREATININE 1.1 mg/dL (0.70-1.30); Calcium 8.7 mg/dL (8.5-10.1); Chloride 105 mmol/L (98-107); Glucose 126 mg/dL (74-106); Potassium 4.1 mmol/L (3.5-5.1); Sodium 140 mmol/L (136-145)
== END 2022-03-16 03:46 | disposition home or self-care (01) ==
LOC: LBO 03:45
PROVIDERS: PCP Physician Assistant; Visit Provider Counselor Addiction (Substance Use Disorder)
DX: F33.1 Major depressive disorder, recurrent, moderate (principal); Z79.899 Other long term (current) drug therapy; Z51.81 Encounter for therapeutic drug level monitoring
CPT/HCPCS: 36415; 80069; 80178

== ENCOUNTER 2022-05-09 03:45 | Outpatient (CLI) | payer MEDICAID, SELFPAY ==
[2022-05-09 16:29] LABS: BUN 11 mg/dL (7-18); Calcium 9.1 mg/dL (8.5-10.1); Chloride 101 mmol/L (98-107); Glucose 101 mg/dL (74-106); PHOSPHORUS 3.4 mg/dL (2.6-4.7); Potassium 4.2 mmol/L (3.5-5.1); Sodium 135 mmol/L (136-145)
[2022-05-09 17:08] LABS: Lithium 0.7 mmol/l (0.6-1.2)
== END 2022-05-09 03:46 | disposition home or self-care (01) ==
LOC: LBO 03:46
PROVIDERS: PCP Physician Assistant; Visit Provider Counselor Addiction (Substance Use Disorder)
DX: F33.1 Major depressive disorder, recurrent, moderate (principal); Z51.81 Encounter for therapeutic drug level monitoring; Z79.899 Other long term (current) drug therapy
CPT/HCPCS: 36415; 80069; 80178

== ENCOUNTER 2022-07-20 19:16 | Outpatient (REF) | payer MEDICAID, SELFPAY ==
[2022-07-20 14:54] LABS: HCT 45.6 % (40.0-50.0); HGB 14.8 g/dL (13.5-17.5); MCH 29.4 pg (27.0-33.0); MCHC 32.5 % (32.0-36.0); MCV 91 fL (80-95); MPV 9.8 fL (8.0-11.0); Platelet Count 282 10^3/uL (130-400); RBC 5.04 10^6/uL (4.36-5.78); RDW 13.8 % (11.8-14.1); WBC 8.81 10^3/uL (4.4-10.8)
[2022-07-20 15:11] LABS: Anion Gap 10.8 mmol/L (3-11); BUN 25 mg/dL (7-18); CO2 26.2 mmol/L (21.0-32.0); Calcium 9.4 mg/dL (8.5-10.1); Calculated LDL 189 mg/dL (<100); Chloride 105 mmol/L (98-107); Cholesterol 273 mg/dL (<200); Estimated GFR 92.84 (mL/min/1.73m2); Glucose 126 mg/dL (74-106); HDL Cholesterol 61 mg/dL (40-60); Potassium 4.2 mmol/L (3.5-5.1); Sodium 142 mmol/L (136-145); Triglyceride 117 mg/dL (<150)
== END 2022-07-20 19:17 | disposition home or self-care (01) ==
LOC: NCHCN 19:16
PROVIDERS: PCP Physician Assistant; Visit Provider Physician Assistant
DX: Z13.220 Encounter for screening for lipoid disorders (principal); Z13.0 Encounter for screening for diseases of the blood and blood-forming organs and certain disorders involving the immune mechanism; Z13.228 Encounter for screening for other metabolic disorders; Z00.00 Encounter for general adult medical examination without abnormal findings
CPT/HCPCS: 80048; 80061; 85027

== ENCOUNTER 2022-07-27 16:11 | Outpatient (REF) | payer MEDICAID, SELFPAY ==
[2022-07-27 15:11] LABS: Lithium 0.8 mmol/l (0.6-1.2)
[2022-07-27 15:28] LABS: Hemoglobin A1C 5.5 % (<5.7)
== END 2022-07-27 16:12 | disposition home or self-care (01) ==
LOC: NCHCN 16:11
PROVIDERS: PCP Physician Assistant; Visit Provider Physician Assistant
DX: R73.9 Hyperglycemia, unspecified (principal); F39 Unspecified mood [affective] disorder
CPT/HCPCS: 80178; 83036

== ENCOUNTER → 2022-08-22 01:32 | Outpatient (CLI) | payer MEDICAID, SELFPAY ==
--- NOTE | 2022-08-22 10:45 | DI.MRI_ITS ---
Exam(s) MR LUMBAR SPINE WO EXAM: MR LUMBAR SPINE WO CLINICAL HISTORY: LBP, M54.5, CHRONIC, LT > RT RADICULOPATHY. TECHNIQUE: Multiplanar multisequence MRI of the Lumbar spine was performed. COMPARISON: CR XR LUMBAR SPINE COMPLETE from 11/25/2020 FINDINGS: Bones: The last intervertebral disc space is designated the L5/S1 level for the numbering purpose of this examination. The vertebral body heights are well maintained. Alignment is satisfactory. The ma rrow signal characteristics are unremarkable. Cord: The conus tip ends at the T12 level. It is of normal size and signal intensity. T12-L1: No disc herniations or bulges are present. No central spinal canal or neural foraminal stenos is. L1-2: No disc herniations or bulges are present. No central spinal canal or neural foraminal stenosis . L2-3: No disc herniations or bulges are present. No central spinal canal or neural foraminal stenosis . L3-4: No disc herniations or bulges are present. No central spinal canal or neural foraminal stenosis . L4-5: Minimal disc bulging. No central spinal canal or neural foraminal stenosis. L5-S1: Minimal endplate osteophytes. Tiny right paracentral disc protrusion which may impinge on the right S1 nerve root. No central spinal canal or neural foraminal stenosis. The visualized SI joints and sacrum are well maintained. Soft tissues: The paraspinal soft tissues are unremarkable. IMPRESSION: Tiny right paracentral disc protrusion at L5-S1 which may impinge on the right S1 nerve root.. DATA REPOSITORY:
== END ==
PROVIDERS: PCP Physician Assistant; Visit Provider Physician Assistant
DX: M51.27 Other intervertebral disc displacement, lumbosacral region (principal)
CPT/HCPCS: 72148

== ENCOUNTER 2022-10-12 09:42 | Outpatient (CLI) | payer MEDICAID, SELFPAY ==
--- NOTE | 2022-10-12 06:00 | DI.RAD_ITS ---
Exam(s) XR PAIN CLINIC LUMBAR SP 2V EXAM: XR PAIN CLINIC LUMBAR SP 2V CLINICAL HISTORY: dx: Lumbar Spondylosis. TECHNIQUE: Fluoroscopy was provided for the referring physician for guidance with performing pain cl inic injection procedure. COMPARISON: No exams were available for comparison FINDINGS: Please see procedure note for details. Fluoro time: 90.2 seconds RADIATION DOSE DELIVERED: mirta Reyna=13.38 mGy
[2022-10-12 09:57] VITALS: BP 117/80; PULSE 68; RESP 20; TEMP 36.8; O2SAT 96
[2022-10-12] MEDS: Midazolam 2 MG/2 ML VIAL IVP ×2 (10:38→10:47)
[2022-10-12] MEDS: Lactated Ringers 500 ML 80 ML IV (10:38)
[2022-10-12] MEDS: fentaNYL 100 MCG/2 ML VIAL IVP (10:38)
[2022-10-12 11:13] VITALS: BP 127/87; PULSE 71; RESP 20; O2SAT 100
[2022-10-12] MEDS: Bupivacaine 0.5% Pres-Free 10 ML VIAL IJ (11:23)
[2022-10-12] MEDS: methylPREDNISolone ACETATE 40 MG/ML VIAL IJ (11:24)
[2022-10-12] MEDS: Lidocaine 2% Pres-Free 5 ML VIAL IJ (11:24)
--- NOTE | 2022-10-12 14:00 | PDOC.PAIN ---
Date of service: 10/12/22 Time of Service: 12:00 Pain Clinic Procedure Note Procedure Note Procedure Note: Bilateral Lumbar Radiofrequency with Avenos Machine PROCEDURE NOTE Date of Service: October 12, 2022 Patient: Naveed Uribe Provider: Ankur Fernandez DO, MPH Pre Operative Diagnosis: Lumbosacral Spondylosis without Myelopathy Post Operative Diagnosis: Same Pre procedure pain; VAS= 7/10 Comments: He did receive >6 months of relief from the last RFA at these levels on 02/27/22 PROCEDURE: Radiofrequency Ablation of medial branches - Bilateral L3 L4 L5 and lateral branches of bilateral S1. Naveed Uribe was brought into the fluoroscopy suite and positioned into the prone position on the fluoroscopy table and allowed to adjust to a position of comfort. A grounding pad was placed on the left thigh. The lumbar region was widely prepped with a chloraprep solution, allowed to air dry and draped in standard sterile surgical fashion. Local anesthesia was provided by 4 mL of 2 % Lidocaine delivered with a 25g needle. A 17g 75 mm radiofrequency introducer needle was placed to the planned anatomic targets guided with intermittent fluoroscopy with a perpendicular approach to terminally place at the junction of the superior articular process and the transverse process of the bilateral L4 L5, the base of the sacral ala on the bilateral for the L5 medial branch nerve and the area between base of the sacral ala to the S1 foramen bilaterally. The stylets were removed and radiofrequency probes with a 4mm active tip were then inserted. Needle tip position of the probes was verified in the AP, oblique, and lateral views. At each site, the medial branch nerve was stimulated at 2 Hz to a maximum 1-2 volts determined to finalize safe needle and electrode placement. The patient was awake and responsive during this portion of the procedure. Each target was anesthetized with 1-2 mL of 2% Lidcaine for anesthesia for lesioning and then each target was lesioned at 80 degrees Celsius for 2 minutes and 30 seconds. Tissue impedences were noted to be between 250 and 500 Ohms. Electrodes and needles were then removed and bandages placed over the needle placement sites, the patient then returned to the supine position on a stretcher and transported to the recovery room without hemodynamic, neurologic, or allergic reactions. Fluoroscopic images were printed for hard copy recording and digitally archived. POST PROCEDURE EVALUATION: IMPRESSION: 1. Summary of procedure. Medication given is documented in the MAR. 2. The patient will be contacted in 1-3 weeks 3. Estimated Blood Loss: <5 mls 4. Fluoroscopy time: Documented in the EMR. Follow up plans and appointments were discussed with the Naveed . Post procedure instruction was given as documented in nursing documentation and having met discharge criteria, Naveed was discharged from the [facility]. COMMENTS: No apparent complications. Post-procedure pain: VAS= 1/10. If this procedure give him at least 6 months of low back pain relief, it can be repeated. F/U with our office as needed. Ankur Fernandez DO, MPH Attending Physician Pain Management
== END 2022-10-12 09:43 | disposition home or self-care (01) ==
PROVIDERS: PCP Physician Assistant; Visit Provider Preventive Medicine Occupational Medicine
DX: M47.817 Spondylosis without myelopathy or radiculopathy, lumbosacral region (principal)
CPT/HCPCS: 64635; 64636; 72100; J1030; J2250; J3010

== ENCOUNTER 2022-12-02 14:52 | Emergency (ER) | payer MEDICAID, SELFPAY ==
[2022-12-02 14:57] VITALS: BP 141/91; PULSE 110; RESP 18; TEMP 36.7; O2SAT 95
--- NOTE | 2022-12-02 15:07 | W.ED.GENAD ---
Discharge Plan Discharge Details Chief Complaint: PsychEval Clinical Impression: Depression with suicidal ideation Primary Care Provider: Lavell Moore ED Provider: Gaston Crawford Home Meds and New Rx's Prescriptions: No Action hydroxyzine HCl 50 mg Tablet 50 mg PO 5X/DAY PRN clonidine HCl 0.2 mg Tablet 0.2 mg PO BID ibuprofen 200 mg tablet 200 mg PO Q4H PRN lithium carbonate [Lithobid] 300 mg Tablet Extended Release 300 mg PO BID triamcinolone acetonide 0.1 % Cream 1 applic TOPICAL BID meclizine 25 mg Tablet 25 mg PO TID atorvastatin 40 mg tablet 40 mg PO DAILY gabapentin 600 mg tablet 600 mg PO TID mirtazapine 30 mg tablet 30 mg PO QHS lamotrigine 150 mg tablet 150 mg PO DAILY prednisone 20 mg tablet 40 mg PO DAILY Qty: 10 0RF acetaminophen 500 mg Tablet 500 mg PO Q6H PRN Medical Decision Making This is a 47-year-old gentleman with a past medical history of anxiety, bipolar disorder, depression, daily cannabis use, hyperlipidemia, chronic low back pain, presents to the ER reporting recent homelessness, staying at a motel, subsequently his has left him, now worsening depression with SI. Last night he had a plan to hang himself, had the bungee cord wrapped around his neck but did not act upon it. He denies recent illness or trauma. Denies any self-harm today. He reports occasional constipation but has had a bowel movement over the past 24 hours. No additional acute medical concerns or complaints. Plan to obtain routine screening laboratory values including a lithium level, initiate a interim care plan, CPSO, and once medically cleared will need a mental health evaluation. This documentation was generated using [employer] system, please disregard any oddities of phrase or misspellings. Medical Records Medical records reviewed: Yes I reviewed the patient's medical records. HPI General Mode of arrival: ambulatory. Date/Time Provider Initiated Documentation: 12/02/22 15:04. Limitations to Documentation: no limitations. Information obtained by: patient. HPI Narrative: This is a 47-year-old gentleman with a past medical history of anxiety, bipolar disorder, cannabis use, depression, chronic low back pain, denies smoking cigarettes, alcohol use, other drug use, presents for worsening depression with thoughts of SI. Patient states that he and his recently became homeless, they are staying at a motel. She went to visit family in [place] and did not come back, is now leaving him. He states that this has caused his depression to worsen, yesterday was going to hang himself, reports that he had a bungee cord wrapped around his neck but simply could not jump. He denies recent illness or trauma. He denies any self-harm today. Patient reports occasional constipation. Patient has no other acute medical concerns or complaints. Patient has not taken his medication in the past 48 hours. Related Data Home Medications Medication Instructions Recorded Confirmed clonidine HCl 0.2 mg tablet 0.2 mg PO BID 01/14/21 10/12/22 hydroxyzine HCl 50 mg tablet 50 mg PO 5X/DAY PRN 01/14/21 10/12/22 ibuprofen 200 mg tablet 200 mg PO Q4H PRN 01/25/21 10/12/22 prednisone 20 mg tablet 40 mg PO DAILY #10 tabs 06/23/21 lithium carbonate 300 mg 300 mg PO BID 02/21/22 10/12/22 tablet,extended release (Lithobid) meclizine 25 mg tablet 25 mg PO TID 02/21/22 03/02/22 triamcinolone acetonide 0.1 % 1 applic topical BID 02/21/22 03/02/22 topical cream acetaminophen 500 mg tablet 500 mg PO Q6H PRN 03/02/22 10/12/22 atorvastatin 40 mg tablet 40 mg PO DAILY 08/30/22 10/12/22 gabapentin 600 mg tablet 600 mg PO TID 08/30/22 10/12/22 lamotrigine 150 mg tablet 150 mg PO DAILY 08/30/22 10/12/22 mirtazapine 30 mg tablet 30 mg PO QHS 08/30/22 10/12/22 Previous Rx's Medication Instructions Recorded prednisone 20 mg tablet 40 mg PO DAILY #10 tabs 06/23/21 Allergies Allergy/AdvReac Type Severity Reaction Status Date / Time fluoxetine HCl [[facility] Allergy Severe Hives Verified 10/12/22 09:47 venlafaxine Allergy Intermediate Verified 10/12/22 09:47 General Stated Complaint: PsychEval FELIZ: 2 Review of Systems Constitutional Constitutional: Denies fatigue, Denies fever(s) and Denies weakness Eyes Eyes: Denies change in vision ENT Ears, Nose, Mouth, and Throat: Denies neck pain Cardiovascular Cardiovascular: Denies chest pain and Denies dyspnea Respiratory Respiratory: Denies cough and Denies dyspnea Gastrointestinal Gastrointestinal: Denies abdominal pain, Reports constipation, Denies nausea and Denies vomiting Genitourinary Genitourinary: Denies dysuria Musculoskeletal Musculoskeletal: Reports back pain (Chronic in nature), Denies neck pain, Denies numbness and Denies tingling Integumentary/Breasts Skin/Breast: Denies rash Neurologic Neurologic: Denies numbness, Denies tingling and Denies weakness Psychiatric Psychiatric: Reports anxiety, Reports depression, Denies homicidal ideation and Reports suicidal ideation Endocrine Endocrine: Denies fatigue Hematologic/Lymphatic Hematologic/Lymphatic: Denies easy bleeding and Denies easy bruising PFSH All Active Problems (Updated 12/02/22 @ 15:28 by ADOLFO Hudson) Depression with suicidal ideation (Acute) Acute left lumbar radiculopathy (Acute) Malaise (Acute) Suicidal ideation (Acute) Bed bug bite (Acute) Lesion of tongue (Acute) DVT prophylaxis (Acute) Discharge planning issues (Acute) Wamic toxicity (Acute) Anxiety (Chronic) Depression (Chronic) Bipolar disorder (Chronic) Medical History Anxiety Bipolar disorder Cannabis abuse Depression Elevated blood sugar Headache Hyperlipidemia Low back pain Mood disorder Neck pain Paresthesia Urinary frequency Surgical History No significant past surgical history Social History Smoking/Tobacco Use Status: Former Tobacco Use Smoking risk assessment performed?: Yes Alcohol Intake: current Alcohol Intake frequency: a few times a week Drug use: Daily Substance use type: marijuana Household members: spouse Housing: apartment Number of Children: 3 current occupation: [employer] What type of physical activity do you participate in: walking, independent ambulation and regular exercise Do you feel safe at home: Yes Do you feel safe in your relationship?: Yes Exam Const General: cooperative, healthy appearing, comfortable, no acute distress and disheveled Orientation: alert, awake and oriented x3 HENMT Head: normal to inspection, normocephalic and atraumatic Face and sinus: normal facial exam Mouth: moist mucous membranes Eyes Conjunctivae: conjunctivae normal Neck Neck: normal visual inspection, full ROM, no meningeal signs, trachea midline, supple and nontender Resp Effort & Inspection: normal respiratory effort and able to speak in complete sentences Auscultation: clear to auscultation bilaterally Cardio Rate: regular rate Rhythm: regular rhythm GI Inspection: normal to inspection Palpation: not firm, no guarding, no pulsatile masses and nontender Back/Spine/Pelvis Back: no CVA tenderness and back tenderness (Diffuse mild lumbar) Skin General skin exam: no rashes or lesions noted Neuro General: patient alert, patient awake, patient oriented x3, moves all extremities and no focal motor deficits Cognition: normal cognition Speech: speech normal Gait: normal gait Motor: muscle tone normal throughout Sensory Exam: no sensory deficits noted Extrem General: normal to inspection, full ROM, capillary refill normal, no pedal edema and no calf tenderness Psych Appearance: disheveled Mental Status: mental status grossly normal Speech and Movement: speech and movement normal Mood: anxious mood and dysthymic mood Affect: sad Attitude: cooperative Thought Process: normal Thought Content: suicidality Insight: fair Judgment: fair Course Vital Signs Vital signs: Vital Signs Temperature 36.7 C 12/02/22 14:57 Pulse 110 H 12/02/22 14:57 Respiratory Rate 18 12/02/22 14:57 Blood Pressure 141/91 H 12/02/22 14:57 Pulse Oximetry 95 12/02/22 14:57 Temperature 36.7 C 12/02/22 14:57 Temperature Source Oral 12/02/22 14:57 Pulse 110 H 12/02/22 14:57 Respiratory Rate 18 12/02/22 14:57 Blood Pressure 141/91 H 12/02/22 14:57 Blood Pressure Position Sitting 12/02/22 14:57 Pulse Oximetry 95 12/02/22 14:57 Oxygen Delivery Method Room Air 12/02/22 14:57 Oxygen Flow Rate 0 12/02/22 14:57 Pain Level 7 12/02/22 14:57
[2022-12-02 15:21] LABS: Bilirubin Negative (Negative); Blood Trace-intact (Negative); Clarity Clear (Clear); Glucose Negative (Negative); Ketones 15 mg/dL (Negative); Leukocyte Esterase Negative (Negative); Nitrite Negative (Negative); Specific Gravity >= 1.030 (1.005-1.025); Urobilinogen 0.2 mg/dL (Up to 0.2)
[2022-12-02 15:31] LABS: Bacteria Rare HPF (Negative); Epithelial Cells Rare HPF (Negative); Other Cells Few Transitional (Negative); RBC 0-2 HPF (0-2); WBC 0-2 HPF (0-5)
[2022-12-02 15:32] LABS: C & S Indicated? No; Casts Negative LPF (Negative); Crystals Negative HPF (Negative); Mucus Moderate (Negative)
[2022-12-02 15:40] LABS: *AMPHETAMINES SCREEN URINE Negative (Negative); *BARBITURATES SCREEN URINE Negative (Negative); *BENZODIAZEPINES SCREEN URINE Negative (Negative); Cannabinoids THC Positive (Negative); Cocaine Screen,Urine Negative (Negative); METHADONE URINE SCREEN Negative (Negative); OPIATES URINE SCREEN Negative (Negative); Tricyclic Antidepressants Negative (Negative)
[2022-12-02 15:52] LABS: Abs Immature Grans 0.02 10^3/uL (0.0-0.06); Absolute Basophil Count 0.09 10^3/uL (0.0-0.2); Absolute Eosinophil Count 0.26 10^3/uL (0.0-0.7); Absolute Lymphocyte Count 2.37 10^3/uL (1.2-3.4); Absolute Monocyte Count 0.76 10^3/uL (0.1-0.8); Absolute Neutrophil Count 5.21 10^3/uL (1.2-6.7); HCT 40.8 % (40.0-50.0); HGB 13.8 g/dL (13.5-17.5); Immature Grans % 0.2; Lymphocytes % 27.2; MCH 28.9 pg (27.0-33.0); MCHC 33.8 % (32.0-36.0); MCV 85 fL (80-95); MPV 9.3 fL (8.0-11.0); Monocytes % 8.7; Neutrophils % 59.9; Platelet Count 258 10^3/uL (130-400); RBC 4.78 10^6/uL (4.36-5.78); RDW 14.4 % (11.8-14.1); RDW-SD 44.7 fL; WBC 8.71 10^3/uL (4.4-10.8)
--- NOTE | 2022-12-02 15:55 | NUR.NOTE ---
Nursing Note: patient states having an enlarged prostate and having bright red blood coming out of his rectum. provider informed.
[2022-12-02 15:59] LABS: COVID-19 PCR Negative (Negative); Influenza A PCR Negative (Negative); Influenza B PCR Negative (Negative); RSV PCR Negative (Negative)
--- NOTE | 2022-12-02 15:59 | W.EDPROG ---
Date of service: 12/02/22 Time of Service: 15:59 Medical Decision Making Care assumed from provider (ADOLFO Calderon) Please see their initial HPI, PE, and documentation. Discussed patient details and case and pending workup and disposition. Patient is hemodynamically stable, and alert and oriented. At the time of signout awaiting medical clearance and mental health eval. Sitter is at bedside. Patient is requesting something to eat and drink which was okayed by me. 1656: Patient is medically cleared at this time CBC shows no leukocytosis, potassium is slightly low at 3.2, TSH 1.82, 8 urinalysis shows trace blood, 15 ketones no evidence for UTI, salicylate level less than 2.8, Tylenol level less than 2 UDS is positive for THC, ethyl alcohol 3.0. COVID flu RSV negative. Beardsley is 0.6 Mental health paged. 1730: Psych liaison performing Zoom evaluation at bedside at this time. 1822: Spoke with Julia with any [facility] who will be seeking voluntary inpatient placement at this time she will start placing referrals tomorrow morning. She does recommend that patient gets a shower. I will order patient's normal medications. He is worried about his pet tarantula and he has been given permission to contact his parents to discuss his pet. He is currently eating dinner. 1841: Informed by staff development manager that patient is having BRB from rectum, will perform LUDWIN. Rectal exam performed with Eve staff development manager as superintendent generating plant, patient tolerated well. No external hemorrhoids visualized, did have some tenderness with the exam, no masses palpated. Patient reports that he has been straining to have bowel movement feels like as if he needs to go that he goes to the bathroom and passes small amount of bright red blood. He denies any abdominal pain or dizziness. He does not currently take any antacid or stool softeners. 2100: Patient sleeping, breathing eupneic, CPSO at bedside, patient remains calm and cooperative. 2237: Patient up ambulatory without assistance to the bathroom, he is requesting medication for sleep. He does usually take mirtazapine 30 mg at bedtime which was ordered. Care is to be handed off to oncoming provider Rachel Noriega DO pending further observation and voluntary placement for mental health. Medical Records Medical records reviewed: Yes I reviewed the patient's medical records. Lab Data Lab results reviewed: Yes I reviewed the patient's lab results. Labs: Laboratory Tests Range/Units 12/02/22 12/02/22 12/02/22 15:08 15:08 15:10 WBC (4.4-10.8) 10^3/uL RBC (4.36-5.78) 10^6/uL Hgb (13.5-17.5) g/dL Hct (40.0-50.0) % MCV (80-95) fL MCH (27.0-33.0) pg MCHC (32.0-36.0) % RDW (11.8-14.1) % Plt Count (130-400) 10^3/uL MPV (8.0-11.0) fL Immature Gran % Neutrophils % Lymphocytes % Monocytes % Eosinophils % Basophils % Nucleated RBC % (0.0-0.3) % Absolute Neutrophils (1.2-6.7) 10^3/uL Absolute Lymphocytes (1.2-3.4) 10^3/uL Absolute Monocytes (0.1-0.8) 10^3/uL Absolute Eosinophils (0.0-0.7) 10^3/uL Absolute Basophils (0.0-0.2) 10^3/uL Sodium (136-145) mmol/L Potassium (3.5-5.1) mmol/L Chloride (98-107) mmol/L Carbon Dioxide (21.0-32.0) mmol/L Anion Gap (3-11) mmol/L BUN (7-18) mg/dL Creatinine (0.70-1.30) mg/dL Est GFR (CKD-EPI 2020) (mL/min/1.73m2) Glucose (74-106) mg/dL Calcium (8.5-10.1) mg/dL Total Bilirubin (0.2-1.0) mg/dL AST (15-37) U/L ALT (16-63) U/L Alkaline Phosphatase (46-116) U/L Total Protein (6.4-8.2) g/dL Albumin (3.4-5.0) g/dL TSH (0.36-3.74) uIU/mL Urine Color (Yellow) Yellow Urine Clarity (Clear) Clear Urine pH (5-8) 7.0 Ur Specific [place] (1.005-1.025) >= 1.030 H Urine Protein (Negative) mg/dL Negative Urine Ketones (Negative) mg/dL 15 H Urine Blood (Negative) Trace-intact H Urine Nitrite (Negative) Negative Urine Bilirubin (Negative) Negative Urine Urobilinogen (Up to 0.2) mg/dL 0.2 Ur Leukocyte Esterase (Negative) Negative Urine RBC (0-2) HPF 0-2 Urine WBC (0-5) HPF 0-2 Ur Epithelial Cells (Negative) HPF Rare Urine Crystals (Negative) HPF Negative Urine Bacteria (Negative) HPF Rare Urine Casts (Negative) LPF Negative Urine Mucus (Negative) Moderate Urine Other (Negative) Few Transitional Ur Culture Indicated? No Urine Glucose (Negative) mg/dL Negative Salicylates (<2.8) mg/dL Urine Opiates Screen (Negative) Negative Urine Methadone Screen (Negative) Negative Acetaminophen (10-30) ug/mL Ur Barbiturates Screen (Negative) Negative Ur Tricyclics Screen (Negative) Negative Ur Amphetamines Screen (Negative) Negative U Benzodiazepines Scrn (Negative) Negative [place] (0.6-1.2) mmol/l Urine Cocaine Screen (Negative) Negative Ur THC Screen (Negative) Positive A Ethyl Alcohol (<10) mg/dL COVID-19 Source Nasopharynx SARS-CoV-2 (PCR) (Negative) Negative Influenza Type A (PCR) (Negative) Negative Influenza Type B (PCR) (Negative) Negative RSV (PCR) (Negative) Negative Range/Units 12/02/22 12/02/22 12/02/22 15:40 15:40 15:40 WBC (4.4-10.8) 10^3/uL 8.71 RBC (4.36-5.78) 10^6/uL 4.78 Hgb (13.5-17.5) g/dL 13.8 Hct (40.0-50.0) % 40.8 MCV (80-95) fL 85 MCH (27.0-33.0) pg 28.9 MCHC (32.0-36.0) % 33.8 RDW (11.8-14.1) % 14.4 H Plt Count (130-400) 10^3/uL 258 MPV (8.0-11.0) fL 9.3 Immature Gran % 0.2 Neutrophils % 59.9 Lymphocytes % 27.2 Monocytes % 8.7 Eosinophils % 3.0 Basophils % 1.0 Nucleated RBC % (0.0-0.3) % 0.0 Absolute Neutrophils (1.2-6.7) 10^3/uL 5.21 Absolute Lymphocytes (1.2-3.4) 10^3/uL 2.37 Absolute Monocytes (0.1-0.8) 10^3/uL 0.76 Absolute Eosinophils (0.0-0.7) 10^3/uL 0.26 Absolute Basophils (0.0-0.2) 10^3/uL 0.09 Sodium (136-145) mmol/L 141 Potassium (3.5-5.1) mmol/L 3.2 L Chloride (98-107) mmol/L 106 Carbon Dioxide (21.0-32.0) mmol/L 24.8 Anion Gap (3-11) mmol/L 10.2 BUN (7-18) mg/dL 12 Creatinine (0.70-1.30) mg/dL 1.1 Est GFR (CKD-EPI 2020) (mL/min/1.73m2) 82.29 Glucose (74-106) mg/dL 104 Calcium (8.5-10.1) mg/dL 9.3 Total Bilirubin (0.2-1.0) mg/dL 0.7 AST (15-37) U/L 25 ALT (16-63) U/L 34 Alkaline Phosphatase (46-116) U/L 89 Total Protein (6.4-8.2) g/dL 7.3 Albumin (3.4-5.0) g/dL 4.3 TSH (0.36-3.74) uIU/mL 1.82 Urine Color (Yellow) Urine Clarity (Clear) Urine pH (5-8) Ur Specific [place] (1.005-1.025) Urine Protein (Negative) mg/dL Urine Ketones (Negative) mg/dL Urine Blood (Negative) Urine Nitrite (Negative) Urine Bilirubin (Negative) Urine Urobilinogen (Up to 0.2) mg/dL Ur Leukocyte Esterase (Negative) Urine RBC (0-2) HPF Urine WBC (0-5) HPF Ur Epithelial Cells (Negative) HPF Urine Crystals (Negative) HPF Urine Bacteria (Negative) HPF Urine Casts (Negative) LPF Urine Mucus (Negative) Urine Other (Negative) Ur Culture Indicated? Urine Glucose (Negative) mg/dL Salicylates (<2.8) mg/dL < 2.8 Urine Opiates Screen (Negative) Urine Methadone Screen (Negative) Acetaminophen (10-30) ug/mL < 2 Ur Barbiturates Screen (Negative) Ur Tricyclics Screen (Negative) Ur Amphetamines Screen (Negative) U Benzodiazepines Scrn (Negative) [place] (0.6-1.2) mmol/l 0.6 Urine Cocaine Screen (Negative) Ur THC Screen (Negative) Ethyl Alcohol (<10) mg/dL 3.0 COVID-19 Source SARS-CoV-2 (PCR) (Negative) Influenza Type A (PCR) (Negative) Influenza Type B (PCR) (Negative) RSV (PCR) (Negative) Exam GI Rectal Exam: visual inspection normal, normal sphincter tone, prostate normal, abnormal stool with barrera blood, heme positive stool gross blood, No hemorrhoids (None visualized), No laceration and No mass Psych Appearance: grossly normal Speech and Movement: speech and movement normal Mood: anxious mood Affect: anxious affect Attitude: cooperative Thought Content: suicidality Insight: fair Judgment: fair Sign Out Sign Out Data: Sign Out Comment: History of anxiety, depression, bipolar disorder, recent homelessness currently living at a motel, subsequently left him increasing his depression and thoughts of SI. Last night had a bungee cord wrapped around his neck to hang himself but did not jump. He has been noncompliant with his medications for the past 48 hours. No additional acute medical concerns or complaints. Initiating a interim care plan, CPSO, and screening laboratories. Once medically cleared will need a mental health evaluation. Last updated by Gaston Crawford PA at 12/02/22 15:30 Sign Out Comment: History of anxiety, depression, and bipolar. Increasing depression and thoughts of SI. Last night had a bungee cord wrapped around his neck to himself but did not jump. Awaiting Voluntary inpatient placement has been initially evaluated by [facility]. Patient is having some rectal bleeding and constipation. CPSO at bedside. Has been calm and cooperative. Last updated by Jolanta Turner NP at 12/02/22 23:06 Discharge Plan Discharge Details Chief Complaint: PsychEval Clinical Impression: Depression with suicidal ideation Primary Care Provider: Lavell Moore ED Provider: Rachel Noriega Home Meds and New Rx's Prescriptions: No Action hydroxyzine HCl 50 mg Tablet 50 mg PO 5X/DAY PRN clonidine HCl 0.2 mg Tablet 0.2 mg PO BID ibuprofen 200 mg tablet 200 mg PO Q4H PRN lithium carbonate [Lithobid] 300 mg Tablet Extended Release 300 mg PO BID triamcinolone acetonide 0.1 % Cream 1 applic TOPICAL BID meclizine 25 mg Tablet 25 mg PO TID Patient Comments: patient is unsure of this medication. atorvastatin 40 mg tablet 40 mg PO DAILY gabapentin 600 mg tablet 600 mg PO TID mirtazapine 30 mg tablet 30 mg PO QHS lamotrigine 150 mg tablet 150 mg PO DAILY prednisone 20 mg tablet 40 mg PO DAILY Qty: 10 0RF Patient Comments: patient states being finished with this. acetaminophen 500 mg Tablet 500 mg PO Q6H PRN
[2022-12-02 16:15] LABS: Source Nasopharynx
[2022-12-02 16:20] LABS: ALT 34 U/L (16-63); AST 25 U/L (15-37); Albumin 4.3 g/dL (3.4-5.0); Alkaline Phosphatase 89 U/L (46-116); Anion Gap 10.2 mmol/L (3-11); BUN 12 mg/dL (7-18); Bilirubin, Total 0.7 mg/dL (0.2-1.0); CO2 24.8 mmol/L (21.0-32.0); CREATININE 1.1 mg/dL (0.70-1.30); Calcium 9.3 mg/dL (8.5-10.1); Chloride 106 mmol/L (98-107); Estimated GFR 82.29 (mL/min/1.73m2); Glucose 104 mg/dL (74-106); Potassium 3.2 mmol/L (3.5-5.1); Sodium 141 mmol/L (136-145); TSH (W/Ref FT4) 1.82 uIU/mL (0.36-3.74); Total Protein 7.3 g/dL (6.4-8.2)
[2022-12-02 16:25] LABS: Salicylate < 2.8 mg/dL (<2.8)
[2022-12-02 16:26] LABS: Acetaminophen < 2 ug/mL (10-30)
[2022-12-02 16:32] LABS: Lithium 0.6 mmol/l (0.6-1.2)
[2022-12-02] MEDS: Potassium Chloride Liquid 20 MEQ PKT 40 MEQ PO (17:29)
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
[2022-12-02 19:10] VITALS: BP 119/79; PULSE 84; RESP 18; O2SAT 98
[2022-12-02] MEDS: Lithium Carbonate 300 MG CAP PO (19:32)
[2022-12-02] MEDS: Gabapentin 300 MG CAP 600 MG PO (19:32)
[2022-12-02] MEDS: Mirtazapine 15 MG TAB 30 MG PO (22:47)
--- NOTE | 2022-12-03 05:01 | W.EDPROG ---
Date of service: 12/02/22 Time of Service: 23:00 Medical Decision Making 12/02/22 2300 --please see previous providers notes for initial presentation, exam and plan. Case endorsed to continue to monitor overnight while awaiting placement. 12/03/22 0800 --no events overnight. Case endorsed to Dr. Billings to continue to monitor while awaiting placement. Medical Records Medical records reviewed: Yes I reviewed the patient's medical records. Sign Out Sign Out Data: Sign Out Comment: History of anxiety, depression, bipolar disorder, recent homelessness currently living at a motel, subsequently left him increasing his depression and thoughts of SI. Last night had a bungee cord wrapped around his neck to hang himself but did not jump. He has been noncompliant with his medications for the past 48 hours. No additional acute medical concerns or complaints. Initiating a interim care plan, CPSO, and screening laboratories. Once medically cleared will need a mental health evaluation. Last updated by Gaston Crawford PA at 12/02/22 15:30 Sign Out Comment: History of anxiety, depression, and bipolar. Increasing depression and thoughts of SI. Last night had a bungee cord wrapped around his neck to himself but did not jump. Awaiting Voluntary inpatient placement has been initially evaluated by [facility]. Patient is having some rectal bleeding and constipation. CPSO at bedside. Has been calm and cooperative. Last updated by Jolanta Turner, MEETA at 12/02/22 23:06 Discharge Plan Discharge Details Chief Complaint: PsychEval Clinical Impression: Depression with suicidal ideation Primary Care Provider: Lavell Moore ED Provider: Rachel Noriega Home Meds and New Rx's Prescriptions: No Action hydroxyzine HCl 50 mg Tablet 50 mg PO 5X/DAY PRN clonidine HCl 0.2 mg Tablet 0.2 mg PO BID ibuprofen 200 mg tablet 200 mg PO Q4H PRN lithium carbonate [Lithobid] 300 mg Tablet Extended Release 300 mg PO BID triamcinolone acetonide 0.1 % Cream 1 applic TOPICAL BID meclizine 25 mg Tablet 25 mg PO TID Patient Comments: patient is unsure of this medication. atorvastatin 40 mg tablet 40 mg PO DAILY gabapentin 600 mg tablet 600 mg PO TID mirtazapine 30 mg tablet 30 mg PO QHS lamotrigine 150 mg tablet 150 mg PO DAILY prednisone 20 mg tablet 40 mg PO DAILY Qty: 10 0RF Patient Comments: patient states being finished with this. acetaminophen 500 mg Tablet 500 mg PO Q6H PRN
[2022-12-03] MEDS: Lithium Carbonate 300 MG CAP PO ×2 (07:44→20:25)
[2022-12-03] MEDS: Gabapentin 300 MG CAP 600 MG PO ×3 (07:44→20:25)
[2022-12-03] MEDS: Famotidine 20 MG TAB PO (07:44)
[2022-12-03 07:50] VITALS: BP 132/95; PULSE 77; RESP 16; TEMP 36.4; O2SAT 95
--- NOTE | 2022-12-03 07:59 | NUR.NOTE ---
Per Dr. Noriega, referral to care management for assistance with outside resources as patient has been coming to the ER quite frequently.Nursing Note:
[2022-12-03] MEDS: cloNIDine 0.1 MG TAB 0.2 MG PO ×2 (09:46→20:24)
[2022-12-03] MEDS: Psyllium PKT 1 EACH PO (10:03)
[2022-12-03] MEDS: hydrOXYzine HCL 50 MG TAB PO (15:14)
[2022-12-03 16:32] VITALS: BP 146/97; PULSE 80; TEMP 36.4; O2SAT 98
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
[2022-12-03 20:12] VITALS: BP 138/94; PULSE 81; O2SAT 98
[2022-12-03] MEDS: Atorvastatin 40 MG TAB PO (20:26)
[2022-12-03] MEDS: Polyethylene Glycol 3350 17 GM PACKET PO (20:46)
--- NOTE | 2022-12-03 21:17 | NUR.NOTE ---
pt to med surg floor via w/c to shower, security and CPSO present
--- NOTE | 2022-12-03 21:33 | NUR.NOTE ---
pt returns from showering without incident. Warm blankets provided.
[2022-12-03] MEDS: Mirtazapine 15 MG TAB 30 MG PO (21:59)
--- NOTE | 2022-12-04 05:36 | W.EDPROG ---
Date of service: 12/03/22 Time of Service: 20:00 Medical Decision Making 12/03/221999 -- no reported events today. Case endorsed to continue to monitor while awaiting placement. 12/04/22 0800 -- no events overnight. Case endorsed to Dr. Billings to continue to monitor while awaiting placement. Medical Records Medical records reviewed: Yes I reviewed the patient's medical records. Sign Out Sign Out Data: Sign Out Comment: History of anxiety, depression, bipolar disorder, recent homelessness currently living at a motel, subsequently left him increasing his depression and thoughts of SI. Last night had a bungee cord wrapped around his neck to hang himself but did not jump. He has been noncompliant with his medications for the past 48 hours. No additional acute medical concerns or complaints. Initiating a interim care plan, CPSO, and screening laboratories. Once medically cleared will need a mental health evaluation. Last updated by Gaston Crawford PA at 12/02/22 15:30 Sign Out Comment: History of anxiety, depression, and bipolar. Increasing depression and thoughts of SI. Last night had a bungee cord wrapped around his neck to himself but did not jump. Awaiting Voluntary inpatient placement has been initially evaluated by [facility]. Patient is having some rectal bleeding and constipation. CPSO at bedside. Has been calm and cooperative. Last updated by Jolanta Turner NP at 12/02/22 23:06 Discharge Plan Discharge Details Chief Complaint: PsychEval Clinical Impression: Depression with suicidal ideation Primary Care Provider: Lavell Moore ED Provider: Rachel Noriega Home Meds and New Rx's Prescriptions: No Action hydroxyzine HCl 50 mg Tablet 50 mg PO 5X/DAY PRN clonidine HCl 0.2 mg Tablet 0.2 mg PO BID ibuprofen 200 mg tablet 200 mg PO Q4H PRN lithium carbonate [Lithobid] 300 mg Tablet Extended Release 300 mg PO BID triamcinolone acetonide 0.1 % Cream 1 applic TOPICAL BID meclizine 25 mg Tablet 25 mg PO TID Patient Comments: patient is unsure of this medication. atorvastatin 40 mg tablet 40 mg PO DAILY gabapentin 600 mg tablet 600 mg PO TID mirtazapine 30 mg tablet 30 mg PO QHS lamotrigine 150 mg tablet 150 mg PO DAILY prednisone 20 mg tablet 40 mg PO DAILY Qty: 10 0RF Patient Comments: patient states being finished with this. acetaminophen 500 mg Tablet 500 mg PO Q6H PRN
[2022-12-04 06:53] VITALS: BP 146/90; PULSE 70; TEMP 36.3; O2SAT 97
[2022-12-04] MEDS: Lithium Carbonate 300 MG CAP PO ×2 (07:55→21:22)
[2022-12-04] MEDS: cloNIDine 0.1 MG TAB 0.2 MG PO ×2 (07:55→21:21)
[2022-12-04] MEDS: Gabapentin 300 MG CAP 600 MG PO ×3 (07:55→21:21)
[2022-12-04] MEDS: Famotidine 20 MG TAB PO (07:55)
[2022-12-04] MEDS: Psyllium PKT 1 EACH PO (08:15)
--- NOTE | 2022-12-04 13:19 | CMSP_ITS ---
- If Service Date Differs Date of service: 12/04/22 Time of Service: 13:19 Care Management Safety Plan Status: Voluntary - Reason for Wait Reason for Wait: Inpatient Admission VOLUNTARY FOR INPATIENT PSYCHIATRIC STABILIZATION. Patient is appropriate in all interactions since arriving at [facility]; Pt has demonstrated appropriate coping and communication skills, has articulated his or her needs and concerns and is fully engaged during staff interactions. Safety plan has been established with patient, and care team, to adhere to patient goals, identify restrictions based on behavioral status, address nutrition, and determine allowed personal belongings, tools for hygiene and personal care. Determine level of activity including ambulation, level of supervision, visitors, and determine privileges based on behaviors and level of engagement by pt. SAFETY PLAN: 1. Will remain on suicide precautions. In Paper Clothes 2. Will remain in room under direct supervision of one-on-one staff at all times provided by CPSO, COLLAR TURNER OPERATOR, COMMUNICATIONS DEPARTMENT CHAIR foreign policy officer. 3. May have paper cups, plates, finger foods as well as a cardboard spoon with which to eat meals. 4. Follow [facility] Management of the Admitted Behavioral Health Patient policy. 5. Comfort bath system only, shower permitted with escort at RN discretion. 6. No personal belongings-soft items permitted at RN discretion. 7. Visitors-none at this time. 8. Activities: soft cart items, music tablet, television and other activities at RN discretion. 9. Bathroom privileges with escort in the ED, available in room without limitation on M/S. 10. Phone: contact limited to family at this time, via hospital cordless phone at RN discretion. 11. Due to VOLUNTARY status, if patient wishes to leave [facility], staff will contact [facility] Crisis Screener ([phone]) and On-Call Associate Scientist ([phone]) as soon as possible. In the event of elopement, notify [place] [employer] Police ([phone]). Patient is currently voluntarily at [facility] and seeking inpatient admission when a bed becomes available. [facility] Frontline Terminal Gauger Supervisor will continue seeking placement. Please contact the Billing Associate Associate Scientist ([phone]) and [facility] Terminal Gauger Supervisor ([phone]) for any needed changes in the Safety Plan. Safety plan has been provided to interdepartmental care team.
[2022-12-04] MEDS: Potassium Chloride 20 MEQ TABCR PO (15:25)
--- NOTE | 2022-12-04 18:04 | W.EDPROG ---
Date of service: 12/04/22 Time of Service: 18:04 Medical Decision Making Received transfer of care of the patient from Dr. Noriega. Patient stable throughout the day shift of December 04. He has been accepted in transfer to the [facility] to the service of Dr. Ward. Transfer is pending for tomorrow morning. Sign Out Sign Out Data: Sign Out Comment: History of anxiety, depression, bipolar disorder, recent homelessness currently living at a motel, subsequently left him increasing his depression and thoughts of SI. Last night had a bungee cord wrapped around his neck to hang himself but did not jump. He has been noncompliant with his medications for the past 48 hours. No additional acute medical concerns or complaints. Initiating a interim care plan, CPSO, and screening laboratories. Once medically cleared will need a mental health evaluation. Last updated by Gaston Crawford PA at 12/02/22 15:30 Sign Out Comment: History of anxiety, depression, and bipolar. Increasing depression and thoughts of SI. Last night had a bungee cord wrapped around his neck to himself but did not jump. Awaiting Voluntary inpatient placement has been initially evaluated by [facility]. Patient is having some rectal bleeding and constipation. CPSO at bedside. Has been calm and cooperative. Last updated by Jolanta Turner NP at 12/02/22 23:06 Discharge Plan Disposition Patient Disposition: Psychiatric Hospital/Unit Specific Psychiatric Facility: [facility] Condition: Stable Discharge Details Chief Complaint: PsychEval Clinical Impression: Depression with suicidal ideation Primary Care Provider: Lavell Moore ED Provider: Robin Billings Home Meds and New Rx's Prescriptions: No Action hydroxyzine HCl 50 mg Tablet 50 mg PO 5X/DAY PRN clonidine HCl 0.2 mg Tablet 0.2 mg PO BID ibuprofen 200 mg tablet 200 mg PO Q4H PRN lithium carbonate [Lithobid] 300 mg Tablet Extended Release 300 mg PO BID triamcinolone acetonide 0.1 % Cream 1 applic TOPICAL BID meclizine 25 mg Tablet 25 mg PO TID Patient Comments: patient is unsure of this medication. atorvastatin 40 mg tablet 40 mg PO DAILY gabapentin 600 mg tablet 600 mg PO TID mirtazapine 30 mg tablet 30 mg PO QHS lamotrigine 150 mg tablet 150 mg PO DAILY prednisone 20 mg tablet 40 mg PO DAILY Qty: 10 0RF Patient Comments: patient states being finished with this. acetaminophen 500 mg Tablet 500 mg PO Q6H PRN
[2022-12-04] MEDS: Atorvastatin 40 MG TAB PO (21:21)
[2022-12-04] MEDS: Mirtazapine 15 MG TAB 30 MG PO (21:22)
[2022-12-04 22:06] VITALS: BP 109/69; PULSE 65; O2SAT 97
[2022-12-05] MEDS: cloNIDine 0.1 MG TAB 0.2 MG PO (09:45)
[2022-12-05] MEDS: Gabapentin 300 MG CAP 600 MG PO (09:45)
[2022-12-05] MEDS: Famotidine 20 MG TAB PO (09:45)
[2022-12-05 09:48] VITALS: BP 141/86; PULSE 80; RESP 18; TEMP 36.3; O2SAT 96
[2022-12-05] MEDS: Lithium Carbonate 300 MG CAP PO (09:56)
--- NOTE | 2022-12-05 10:39 | NUR.NOTE ---
Nursing Note: Patient has a pet tarantula zebra at his room and needs to have care for it during his admission. I called [facility] and they will take it if it is brought to them. With assistance from Randa Coffman we called [facility] and they stated they would pick it up and take it to [facility]. Laly spoke with the patient for directions on how to transport it. Patient requested a letter for the [facility] to allow them to enter his room to chart picker possessions. I hand wrote the letter, and patient signed it after reading it. Letter sent to medical records for scanning. Copy of letter given to patient. Sola Pierre, [facility], picked up the room padgett card and the letter for the [facility]. A copy of the letter was also given to [facility].
== END 2022-12-05 09:57 ==
PROVIDERS: Physician Assistant; Emergency Provider Student in an Organized Health Care Education/Training Program; PCP Physician Assistant
DX: F32.A Depression, unspecified (principal); R45.851 Suicidal ideations; Z20.822 Contact with and (suspected) exposure to COVID-19
CPT/HCPCS: 80053; 80307; 87637; 99285; 80178; 80320; 80329; 81003; 81015; 84443; 85025; J3490

== ENCOUNTER 2023-01-03 01:08 | Outpatient (CLI) | payer MEDICAID, SELFPAY ==
--- NOTE | 2023-01-03 06:45 | DI.MRI_ITS ---
Exam(s) MR LUMBAR SPINE WO EXAM: MR LUMBAR SPINE WO CLINICAL HISTORY: New onset left leg weakness, chronic LBP,ACUTE LT LUMBAR RADICULOPATHY.. TECHNIQUE: Multiplanar multisequence MRI of the Lumbar spine was performed. COMPARISON: MR MR LUMBAR SPINE WO from 08/22/2022 FINDINGS: Bones: The last intervertebral disc space is designated the L5/S1 level for the numbering purpose of this examination. The vertebral body heights are well maintained. Alignment is satisfactory. The si gnal characteristics are unremarkable. Cord: The conus tip ends at the L1 level. It is of normal size and signal intensity. T12-L1: No disc herniations or bulges are present. No central spinal canal or neural foraminal stenos is. L1-2: No disc herniations or bulges are present. No central spinal canal or neural foraminal stenosis . L2-3: No disc herniations or bulges are present. No central spinal canal or neural foraminal stenosis . L3-4: No disc herniations or bulges are present. No central spinal canal or neural foraminal stenosis . L4-5: There is a mild diffuse disc bulge. No central spinal canal or neural foraminal stenosis. L5-S1: There is again seen a small right paracentral disc herniation. It does appear to impinge mild ly on the right S1 nerve root. This is unchanged compared to the prior examination. No central spin al canal or neural foraminal stenosis. Soft tissues: The visualized SI joints and sacrum are well maintained. The paraspinal soft tissues ar e unremarkable. IMPRESSION: 1. Stable right paracentral L5-S1 disc herniation. It appears to impinge mildly on the right S1 nerv e root. 2. No significant central spinal canal or neural foraminal stenosis is seen in the lumbar spine. DATA REPOSITORY:
== END 2023-01-03 01:28 ==
LOC: DI 01:09
PROVIDERS: PCP Physician Assistant; Visit Provider Preventive Medicine Occupational Medicine
DX: M54.16 Radiculopathy, lumbar region (principal); M62.81 Muscle weakness (generalized); M51.17 Intervertebral disc disorders with radiculopathy, lumbosacral region
CPT/HCPCS: 72148

== ENCOUNTER 2023-02-22 17:04 | Outpatient (CLI) | payer MEDICAID, SELFPAY ==
[2023-02-22 16:23] LABS: Albumin 3.7 g/dL (3.4-5.0); Anion Gap 6.9 mmol/L (3-11); BUN 16 mg/dL (7-18); CO2 31.1 mmol/L (21.0-32.0); CREATININE 1.4 mg/dL (0.70-1.30); Chloride 104 mmol/L (98-107); Estimated GFR 61.61 (mL/min/1.73m2); Glucose 117 mg/dL (74-106); PHOSPHORUS 4.5 mg/dL (2.6-4.7); Potassium 3.6 mmol/L (3.5-5.1); Sodium 142 mmol/L (136-145); TSH 1.54 uIU/mL (0.36-3.74)
[2023-02-22 17:27] LABS: Lithium 0.6 mmol/l (0.6-1.2)
[2023-02-22 17:32] LABS: Calculated LDL 44 mg/dL (<100); Cholesterol 173 mg/dL (<200); HDL Cholesterol 76 mg/dL (40-60); Triglyceride 267 mg/dL (<150)
== END 2023-02-22 17:05 | disposition home or self-care (01) ==
LOC: LBO 17:06
PROVIDERS: Counselor Addiction (Substance Use Disorder); PCP Physician Assistant; Visit Provider Physician Assistant
DX: F33.1 Major depressive disorder, recurrent, moderate (principal); Z79.899 Other long term (current) drug therapy; Z51.81 Encounter for therapeutic drug level monitoring; E78.5 Hyperlipidemia, unspecified
CPT/HCPCS: 36415; 80061; 80069; 80178; 84443

== ENCOUNTER 2023-03-08 17:50 | Emergency (ER) | payer MEDICAID, SELFPAY ==
[2023-03-08 17:54] VITALS: BP 127/77; PULSE 65; RESP 16; TEMP 36.8; O2SAT 99
[2023-03-08] MEDS: Ketorolac 15 MG/ML VIAL IVP (18:38)
[2023-03-08 19:34] LABS: Bilirubin Negative (Negative); Blood Negative (Negative); Clarity Clear (Clear); Glucose Negative (Negative); Ketones Negative (Negative); Leukocyte Esterase Negative (Negative); Nitrite Negative (Negative); Specific Gravity 1.015 (1.005-1.025); Urobilinogen 0.2 mg/dL (Up to 0.2); pH 7.5 (5-8)
[2023-03-08 19:55] VITALS: BP 133/83; PULSE 61
[2023-03-08 20:00] VITALS: BP 131/81; PULSE 63
--- NOTE | 2023-03-08 20:19 | ED.GENADUL_ITS ---
Discharge Plan Disposition Patient Disposition: Home Condition: Improving Discharge Details Clinical Impression: Acute left lumbar radiculopathy Primary Care Provider: Lavell Moore ED Provider: Jose Cohen Home Meds and New Rx's Prescriptions: Continued hydroxyzine HCl 50 mg Tablet 50 mg PO 5X/DAY PRN clonidine HCl 0.2 mg Tablet 0.2 mg PO BID ibuprofen 200 mg tablet 200 mg PO Q4H PRN lithium carbonate [Lithobid] 300 mg Tablet Extended Release 300 mg PO BID triamcinolone acetonide 0.1 % Cream 1 applic TOPICAL BID meclizine 25 mg Tablet 25 mg PO TID Patient Comments: patient is unsure of this medication. atorvastatin 40 mg tablet 40 mg PO DAILY gabapentin 600 mg tablet 600 mg PO TID mirtazapine 30 mg tablet 30 mg PO QHS lamotrigine 150 mg tablet 150 mg PO DAILY prednisone 20 mg tablet 40 mg PO DAILY Qty: 10 0RF Patient Comments: patient states being finished with this. acetaminophen 500 mg Tablet 500 mg PO Q6H PRN Discharge Instructions Instructions: Lumbar Radiculopathy (ED) Additional Instructions: If you develop any new or significant worsening of symptoms feel free to return the emergency department for reassessment otherwise continue to follow-up with your primary care provider and pain clinic for further treatment of your back pain with radiation down your left leg. Referrals: Lavell Moore [Primary Care Provider] - 1 week Discharge Data Discharge Date/Time-TO BE ENTERED AT DEPARTURE: 03/08/23 20:27 Medical Decision Making Patient here for back pain with some left leg weakness. Physical exam shows normal gait, normal strength, unremarkable exam except for some tenderness to palpation of the lumbar spine. Based on physical exam and fact that patient has known lumbar disc herniation with radiculopathy I do feel patient is LOW risk for ABDOMINAL AORTIC ANEURYSM, CAUDA EQUINA SYNDROME, EPIDURAL MASS LESION, SPINAL STENOSIS, OR HERNIATED DISK CAUSING SEVERE STENOSIS, thus I consider the discharge disposition reasonable. Patient given medicine prior to discharge and period of observation which patient had near full resolution of any pain discomfort was ambulatory even on toes and heels with appropriate range of motion of back and no further symptoms. I do feel comfortable with discharge disposition. We have discussed the diagnosis and risks, and we agree with discharging home to follow-up with their primary doctor. We also discussed returning to the Emergency Department immediately if new or worsening symptoms occur. We have discussed the symptoms which are most concerning (e.g., saddle anesthesia, urinary or bowel incontinence or retention, changing or worsening pain) that necessitate immediate return. After discussion of diagnosis and plan of care patient has no further needs, questions, or concerns and states clear understanding to return to the emergency department for any worsening symptoms. This documentation was generated using [employer] dictation system, please disregard any oddities of phrase or misspellings. HPI General Mode of arrival: ambulatory . Date/Time Provider Initiated Documentation: 03/08/23 17:53 . Limitations to Documentation: no limitations . Information obtained by: patient and RN notes reviewed . History of Present Illness 47 year old M presents to the emergency department with the chief complaint of Back pain, left leg weakness, described as moderate and similar to prior episodes, with intensity rated at 8. Quality is described as sharp, and is localized to the back, left and lower extremity. Patient reports no radiation. Patient started experiencing this day(s) (1) and it has been intermittent. No relieving factors improve symptom(s), No exacerbating factors reported . Patient notes no other symptoms.. Patient did receive the following treatments prior to arrival, none Related Data Home Medications Medication Instructions Recorded Confirmed clonidine HCl 0.2 mg tablet 0.2 mg PO BID 01/14/21 03/08/23 hydroxyzine HCl 50 mg tablet 50 mg PO 5X/DAY PRN 01/14/21 03/08/23 ibuprofen 200 mg tablet 200 mg PO Q4H PRN 01/25/21 02/22/23 prednisone 20 mg tablet 40 mg PO DAILY #10 tabs 06/23/21 03/08/23 lithium carbonate 300 mg 300 mg PO BID 02/21/22 03/08/23 tablet,extended release (Lithobid) meclizine 25 mg tablet 25 mg PO TID 02/21/22 03/08/23 triamcinolone acetonide 0.1 % 1 applic topical BID 02/21/22 03/08/23 topical cream acetaminophen 500 mg tablet 500 mg PO Q6H PRN 03/02/22 02/22/23 atorvastatin 40 mg tablet 40 mg PO DAILY 08/30/22 03/08/23 gabapentin 600 mg tablet 600 mg PO TID 08/30/22 03/08/23 lamotrigine 150 mg tablet 150 mg PO DAILY 08/30/22 03/08/23 mirtazapine 30 mg tablet 30 mg PO QHS 08/30/22 03/08/23 Previous Rx's Medication Instructions Recorded prednisone 20 mg tablet 40 mg PO DAILY #10 tabs 06/23/21 Allergies Allergy/AdvReac Type Severity Reaction Status Date / Time fluoxetine HCl [From Prozac] Allergy Severe Hives Verified 03/08/23 17:56 venlafaxine Allergy Intermediate Verified 03/08/23 17:56 General Stated Complaint: Orthopedic FELIZ: 3 Review of Systems Constitutional Constitutional: Denies chills and Denies fever(s) Cardiovascular Cardiovascular: Denies chest pain and Denies dyspnea on exertion Respiratory Respiratory: Denies cough and Denies dyspnea on exertion Gastrointestinal Gastrointestinal: Denies change in bowel habits Genitourinary Genitourinary: Denies difficulty urinating and Denies urinary incontinence Musculoskeletal Musculoskeletal: Reports as per HPI, Reports back pain, Denies numbness and Denies tingling Neurologic Neurologic: Denies numbness, Denies sensory deficit and Denies tingling PFSH All Active Problems (Updated 03/08/23 @ 20:22 by Jose Cohen NP) Lumbar herniated disc (Acute) Acute left lumbar radiculopathy (Acute) Malaise (Acute) Suicidal ideation (Acute) Lesion of tongue (Acute) DVT prophylaxis (Acute) Discharge planning issues (Acute) [place] toxicity (Acute) Anxiety (Chronic) Depression (Chronic) Bipolar disorder (Chronic) Medical History (Updated 03/08/23 @ 20:22 by Jose Cohen NP) Anxiety Bed bug bite Bipolar disorder Cannabis abuse Depression Elevated blood sugar Headache Hyperlipidemia Low back pain Mood disorder Neck pain Paresthesia Urinary frequency Surgical History No significant past surgical history Social History Smoking/Tobacco Use Status: Former Tobacco Use Smoking risk assessment performed?: Yes Alcohol Intake: current Alcohol Intake frequency: holidays/special occasions only Drug use: Daily Substance use type: marijuana Household members: spouse Housing: apartment Number of Children: 3 current occupation: [employer] and [employer] What type of physical activity do you participate in: walking, independent ambulation and regular exercise Additional Social history: patient is homeless, lives in the [facility]. patient was just left by his . Exam Const General: cooperative and no acute distress Orientation: alert, awake and oriented x3 Neck Neck: normal visual inspection, full ROM and no meningeal signs Resp Effort & Inspection: normal respiratory effort Auscultation: clear to auscultation bilaterally Cardio Rate: regular rate Rhythm: regular rhythm Heart Sounds: S1 normal and S2 normal GI Palpation: no hepatosplenomegaly, no aortic enlargement, no masses and no pulsatile masses Rectal Exam: deferred Back/Spine/Pelvis Thoracic/Lumbar Spine: pain with thoraco-lumbar ROM and thoraco-lumbar ROM limited Pelvis: no pain with anterior-posterior compression, no pain with lateral compression, buttock tenderness on the right and sciatic notch tenderness on the right Neuro General: patient alert, patient awake and patient oriented x3 DTR's: Rt Patellar: 2+, Lt Patellar: 2+, Rt Ankle: 2+ and Lt Ankle: 2+ Extrem Right lower extremity: hip/thigh Details: normal to inspection, knee Details: normal to inspection and lower leg Details: normal to inspection Course Vital Signs Vital signs: Vital Signs Temperature 36.8 C 03/08/23 17:54 Pulse 65 03/08/23 17:54 Respiratory Rate 16 03/08/23 17:54 Blood Pressure 127/77 03/08/23 17:54 Pulse Oximetry 99 03/08/23 17:54 Temperature 36.8 C 03/08/23 17:54 Pulse 61 03/08/23 19:55 Respiratory Rate 16 03/08/23 17:54 Respiratory Effort Normal 03/08/23 17:56 Blood Pressure 133/83 03/08/23 19:55 Blood Pressure Mean 95 03/08/23 19:55 Blood Pressure Position Sitting 03/08/23 17:54 Pulse Oximetry 99 03/08/23 17:54 Oxygen Delivery Method Room Air 03/08/23 17:54 Oxygen Flow Rate 0 03/08/23 17:54 Pain Level 6 03/08/23 18:38 Lab/Test Results Lab/Test Results: Laboratory Tests Range/Units 03/08/23 19:14 Urine Color (Yellow) Yellow Urine Clarity (Clear) Clear Urine pH (5-8) 7.5 Ur Specific Veteran (1.005-1.025) 1.015 Urine Protein (Negative) mg/dL Negative Urine Ketones (Negative) mg/dL Negative Urine Blood (Negative) Negative Urine Nitrite (Negative) Negative Urine Bilirubin (Negative) Negative Urine Urobilinogen (Up to 0.2) mg/dL 0.2 Ur Leukocyte Esterase (Negative) Negative Urine Glucose (Negative) mg/dL Negative
== END 2023-03-08 20:27 | disposition home or self-care (01) ==
PROVIDERS: Emergency Provider Nurse Practitioner Family; PCP Physician Assistant
DX: M54.16 Radiculopathy, lumbar region (principal)
CPT/HCPCS: 96374; 99283; 81003; J1885

== ENCOUNTER 2023-04-14 09:14 | Day surgery (SDC) | payer MEDICAID, SELFPAY ==
--- NOTE | 2023-04-13 20:58 | W.PM.DSUDISC ---
Date of service: 04/14/23 Time of Service: 11:48 Discharge Plan Disposition Patient Disposition: Home Condition: Good Discharge Details Reason For Visit: Screening colonoscopy Attending Provider: Rich Cota Primary Care Provider: Lavell Moore Home Meds and New Rx's Prescriptions: Continued hydroxyzine HCl 50 mg Tablet 50 mg PO 5X/DAY PRN clonidine HCl 0.2 mg Tablet 0.2 mg PO BID lithium carbonate [Lithobid] 300 mg Tablet Extended Release 300 mg PO BID triamcinolone acetonide 0.1 % Cream 1 applic TOPICAL BID meclizine 25 mg Tablet 25 mg PO TID Patient Comments: patient is unsure of this medication. atorvastatin 40 mg tablet 40 mg PO DAILY gabapentin 600 mg tablet 600 mg PO TID mirtazapine 30 mg tablet 30 mg PO QHS lamotrigine 150 mg tablet 150 mg PO DAILY Discontinued bisacodyl 5 mg tablet,delayed release (DR/EC) 5 mg PO ONCE Qty: 4 0RF Rx Instructions: Per Colonoscopy bowel prep instructions polyethylene glycol 3350 17 gram/dose powder 238 g PO ONCE Qty: 238 0RF Rx Instructions: For Colonoscopy bowel prep, as directed by office Discharge Instructions Additional Instructions: Naveed, we were able to complete your colonoscopy today without any problems. The quality of your prep was outstanding. We had great visualization. I did not see any evidence of polyps or tumors. With a negative family history, and a normal colonoscopy, I recommend a follow-up in 10 years. If you ever find out that you have any first-degree relatives (mother, father, sister, brother, child) with colon or rectal cancer, then your screening interval should shorten to 5 years. 1. If tolerated, consume a soft, low fiber diet for 1-2 days. 2[address] Do not drive, drink alcohol, operate machinery, make critical decisions, or do activities that require coordination or balance for 24 hours. 3. Because air was put into your colon during the procedure, expelling air from your rectum (passing gas or farting) is normal. 4. You may not have a bowel movement for 1-3 days because of the colonoscopy prep. This is normal. 5. Go directly to the emergency room if you notice any of the following: Develop chills (warm to touch), or if you have a thermometer and your temperature is above 101 Difficulty breathing or difficultly swallowing Persistent vomiting Severe abdominal pain, other than gas cramps Severe chest pain Black, tarry stools Any bleeding ? exceeding one tablespoon 6. Call your physician if the site where your intravenous was started becomes red, swollen, painful, and warm to touch. 7. Your physician has reviewed your pre-procedure medications. Please continue to take those medications as previously ordered. You will be given specific information/education regarding any changes to your medications before leaving. Activity:: Activity as Tolerated Diet:: As Tolerated Discharge Orders Discharge Orders: Discharge Order (Routine); Ordered 04/13/23 Ordered By: Rich Cota DS: Diagnosis Discharge Diagnosis (1) Screen for colon cancer: Status: Acute Asessment and Plan: Negative screening colonoscopy.
--- NOTE | 2023-04-13 21:00 | W.COLOREPORT ---
Date of service: 04/14/23 Time of Service: 11:49 Colonoscopy Report Date of procedure: 04/14/23 Pre-op diagnosis general: Screening colonoscopy Post-op diagnosis procedure note: other (Negative screening colonoscopy) Procedure: Colonoscopy Surgeon: Rich Cota Anesthesia Type: General:No Airway Estimated blood loss (mL): 0 Pathology: none sent Complications: None Disposition: same day Indications: Naveed is 47 years old, and he is here for a screening colonoscopy Prep: Miralax/Dulcolax Procedure Start Time: 11:27 Procedure End Time: 11:37 Retraction Time: 6 Findings: Negative screening colonoscopy Procedure Description: After the induction of monitored anesthetic care, and with the patient in left lateral decubitus position, I began by performing an external anorectal exam.? Perineum and skin were normal, as was the anal verge.? There was no evidence of external hemorrhoids.? Next, I performed a digital rectal exam.? I did not appreciate any abnormal findings.? Next, I advanced a colonoscope into the rectal vault.? I performed retroflexion.? This was normal.? Using insufflation, I then advanced the colonoscope beyond the rectal folds and into the sigmoid colon before advancing towards the cecum.? The quality of the prep was outstanding.? The scope was noted to be in the cecum by identification of the ileocecal valve and appendiceal orifice.? I then began withdrawing the colonoscope using repeated irrigation as necessary for full evaluation of the colonic mucosa. ?Once the scope was withdrawn to the level of the rectum, great care was taken to examine portions of the rectal folds.? I did not see any signs of tumors or polyps anywhere in the large intestine. Finally, the scope was withdrawn and the patient was brought to the same-day surgery recovery unit as the anesthetic wore off. ?The findings and instructions were shared with the patient prior to discharge.
[2023-04-14 09:19] VITALS: BP 121/79; PULSE 60; RESP 16; TEMP 36; O2SAT 98
[2023-04-14] MEDS: Lactated Ringers 1,000 ML 80 ML IV (10:06)
--- NOTE | 2023-04-14 11:11 | W.ANESPRE ---
General Info Date of Service Date Performed: 04/14/23 Height: 5 ft 3 in Weight: 56 kg Body Mass Index (BMI): 21.9 Surgical Procedure: Operation Date: 04/14/23 10:50 Proposed Procedure Side Surgeon matthew Cota MD Meds Allergies and Home Medications Allergies Allergy/AdvReac Type Severity Reaction Status Date / Time fluoxetine HCl [From Prozac] Allergy Severe Hives Verified 04/14/23 09:29 venlafaxine Allergy Intermediate Verified 04/14/23 09:29 Home Medication Medication Instructions Recorded clonidine HCl 0.2 mg tablet 0.2 mg PO BID 01/14/21 hydroxyzine HCl 50 mg tablet 50 mg PO 5X/DAY PRN 01/14/21 lithium carbonate 300 mg 300 mg PO BID 02/21/22 tablet,extended release (Lithobid) meclizine 25 mg tablet 25 mg PO TID 02/21/22 triamcinolone acetonide 0.1 % 1 applic topical BID 02/21/22 topical cream atorvastatin 40 mg tablet 40 mg PO DAILY 08/30/22 gabapentin 600 mg tablet 600 mg PO TID 08/30/22 lamotrigine 150 mg tablet 150 mg PO DAILY 08/30/22 mirtazapine 30 mg tablet 30 mg PO QHS 08/30/22 Current Visit Medications: Current Medications Generic Name Dose Route Start Last Admin Trade Name Tonyq PRN Reason Stop Dose Admin Hyoscyamine Sulfate 0.125 mg 04/13/23 21:01 Hyoscyamine 0.125 Mg Sl/Oral/Chew SL 05/13/23 21:00 DIRECTED PRN Ringer's Solution 1,000 mls @ 80 mls/hr 04/14/23 06:00 04/14/23 10:06 IV 04/14/23 23:59 80 mls/hr INFUSION VITALY Administration IV Miscellaneous Supplies 1 each 04/14/23 06:00 Iv Access IV 04/14/23 23:59 DIRECTED VITALY Naloxone HCl 0 mg 04/14/23 11:10 Naloxone 0.4 Mg/Ml Vial IVP 05/14/23 11:09 PRN PRN Ondansetron HCl 4 mg 04/13/23 21:01 Ondansetron 4 Mg/2 Ml Vial IVP 05/13/23 21:00 Q4H PRN PRN Nausea / Vomiting Sodium Chloride 0 ml 04/14/23 06:00 Normal Saline Flush 10 Ml Syr IV 04/14/23 23:59 PRN PRN Sodium Chloride 0 ml 04/14/23 06:00 Normal Saline 10 Ml Vial IJ 04/14/23 23:59 DIRECTED PRN Sterile Water 0 ml 04/14/23 06:00 Water,Injection,Sterile 10 Ml Vial IJ 04/14/23 23:59 DIRECTED PRN PFSH Active Problems Active Problems: Problem Status Onset Code Screen for colon cancer Z12.11 Lumbar herniated disc M51.26 Acute left lumbar radiculopathy M54.16 Malaise R53.81 Suicidal ideation R45.851 Lesion of tongue K14.8 DVT prophylaxis Discharge planning issues Z02.9 [place] toxicity T56.891A Anxiety F41.9 Depression F32.9 Bipolar disorder F31.9 Medical History Medical History Anxiety Bed bug bite Bipolar disorder Cannabis abuse Depression Elevated blood sugar Headache Hyperlipidemia Low back pain Mood disorder Neck pain Paresthesia Urinary frequency Medical History Comments:: Per pt. stated as soon as he touched he freaks out (pr. isn't aware of what he does-this was a dental procedure) Surgical History Surgical History No significant past surgical history Tobacco Smoking/Tobacco Use Status: Current every day Tobacco Type: cigarettes Smoking packs per day: 1 Smoking cigarettes per day: 20.0 Alcohol Alcohol Intake: former Substance Use Substance use: Daily Substance use type: marijuana Vital Signs and Lab Results Vital Signs Most Recent Vital Signs in EMR: Most Recent Vital Signs Temp Pulse Resp BP Pulse Ox 36 C L 60 16 121/79 98 04/14/23 09:19 04/14/23 09:19 04/14/23 09:19 04/14/23 09:19 04/14/23 09:19 Lab Results Blood Type / Crossmatch: No Data to Display Complete Blood Count: No Data to Display Complete Metabolic Panel: No Data to Display Liver Function Panel: No Data to Display Coagulation Panel: No Data to Display Cardiac Panel: No Data to Display Arterial Blood Gas: No Data to Display Venous Blood Gas: No Data to Display Pancreas Panel: No Data to Display Thyroid Panel: No Data to Display Infectious Disease: No Data to Display Blood Cultures: No Data to Display Toxicology Panel: No Data to Display Anesthesia Assessment and Plan Anesthesia History Personal History: No History of Anesthesia Complications Family History: No Family History of Anesthesia Complications Exercise Tolerance Exercise Tolerance: Metabolic Equivalents>4 Pertinent Negatives Pertinent Negatives: No Symptoms of GERD Cardiac & Pulmonary Exam Cardiac Exam: Normal S1/S2 Heart Sounds Pulmonary Exam: Clear Bilateral Breath Sounds Implantable Cardiac Device Does patient have a Pacemaker or an ICD?: No Airway Exam Known Difficult Airway: No Mallampati Class: 2 Mouth Opening: Normal (> 3cm) Thyromental Distance: Greater than 3 cm Neck Range of Motion: Full ROM Neck Circumference: Normal Teeth Condition: Normal Dentition ASA Classification ASA Score: ASA 2 Emergency Case?: No NPO Status NPO Status: NPO Clears >2 hours, Solids >8 hours Anesthesia Plan Resuscitation Status: Full Code Anesthesia Technique: General Anesthesia Airway Planned: Natural Airway Monitors Used: Standard Monitors Preoperative Comments:: daily THC
[2023-04-14 11:14] VITALS: BMI 21.9
[2023-04-14 11:42] VITALS: BP 82/53; PULSE 63; RESP 17; TEMP 36; O2SAT 96
--- NOTE | 2023-04-14 11:45 | W.ANESPOSTOP ---
Postoperative Evaluation Date, Time and Location Date Performed: 04/14/23 Time Performed: 11:45 Patient Location: Day Surgery Unit Vital Signs Most Recent Imported Vital Signs: Most Recent Vital Signs Temp Pulse Resp BP Pulse Ox 36 C L 60 16 121/79 98 04/14/23 09:19 04/14/23 09:19 04/14/23 09:19 04/14/23 09:19 04/14/23 09:19 Pain Score Most Recent Pain Score: Most Recent Pain Score Pain Level 3 04/14/23 09:19 Assessment Mental Status: Arousable with meaningful communication Airway and Respiratory Function: Patent airway with normal (patient baseline) respiratory exam Cardiovascular Function: Hemodynamically Stable Hydration Status: Adequately Hydrated Nausea & Vomiting: No Nausea or Vomiting Pain: Pt. Denies Any Pain Peripheral Nerve Block: Patient did not receive a nerve block
[2023-04-14 12:15] VITALS: BP 113/83; PULSE 67; RESP 16; TEMP 36.3; O2SAT 99
== END 2023-04-14 13:20 | disposition home or self-care (01) ==
PROVIDERS: PCP Physician Assistant; Visit Provider Surgery
PROC: 0DJD8ZZ Inspection of Lower Intestinal Tract, Via Natural or Artificial Opening Endoscopic (ICD-10-PCS; CPT 45378; principal; 2023-04-14 10:45)
DX: Z12.11 Encounter for screening for malignant neoplasm of colon (principal)
CPT/HCPCS: 45378

== ENCOUNTER 2023-06-20 10:45 | Outpatient (CLI) | payer MEDICAID, SELFPAY ==
--- NOTE | 2023-06-20 06:00 | DI.RAD_ITS ---
Exam(s) XR PAIN CLINIC LUMBAR SP 2V EXAM: XR PAIN CLINIC LUMBAR SP 2V CLINICAL HISTORY: Dx: Lumbar Radiculopathy. TECHNIQUE: Fluoroscopy was provided for the referring physician for guidance with performing pain cl inic injection procedure. COMPARISON: No exams were available for comparison FINDINGS: Please see procedure note for details. Fluoro time: 21.4 seconds RADIATION DOSE DELIVERED: Ka,r=3.22 mGy
[2023-06-20 11:33] VITALS: BP 102/66; PULSE 57; TEMP 36.7; O2SAT 98
[2023-06-20 12:15] VITALS: BP 118/99; PULSE 57; RESP 10; O2SAT 99
--- NOTE | 2023-06-20 12:25 | PDOC.PAIN ---
Date of service: 06/20/23 Time of Service: 12:25 Pain Managment Procedure Note Procedure Note Procedure Note: PROCEDURE NOTE LUMBAR EPIDURAL STEROID INJECTION Date of Service: June 20, 2023 Patient:Naveed Jordan? Provider: Ankur Fernandez DO, MPH Naveed Uribe has been referred to the [facility] for a lumbar epidural steroid injection. Pre-operative diagnosis: Lumbosacral Radiculopathy Post-operative diagnosis: Same Pre-Procedure Pain: VAS= 9 /10 Comments: I previously evaluated him in the office. His symptoms have not changed. Naveed was interviewed and the medical record was reviewed.? There were no medical, pharmacologic, radiographic or other structural contraindications to attempting fluoroscopically guided Lumbar epidural steroid injection.? Risks, potential side effects, indications, and potential benefits of the procedure were reviewed with Naveed.? Questions and concerns were addressed.? After it was clear that Naveed was fully informed about the procedure, the printed consent form was signed by the patient and myself.? Naveed was placed in the prone position on the fluoroscopy table and automated blood pressure cuff and pulse oximeter applied. The skin entry point for entering/approaching the epidural space for the lumbar epidural steroid injection was marked. Following thorough chlorhexadine preparation of the skin and draping and 1% lidocaine infiltration of the skin entry point and subcutaneous tissues, an 18 gauge Touhy needle was placed and advanced under fluoroscopic guidance and with loss of resistance technique into the L5-S1 epidural space. Needle tip placement and depth were aided and confirmed by fluoroscopy. There was no paresthesia or return of blood or CSF through the needle. 1 mls of Omnipaque 240 was injected with clear epidural spread confirmed with fluoroscopy. 80 mg of Depo-Medrol was? injected. This was followed by 1 ml of preservative-free normal saline to flush the steroid out of the needle. There was no unusual discomfort expressed by Naveed. The needle was withdrawn without difficulty. (49 mls of Omnipaque was wasted) Naveed was observed and was without hemodynamic, neurologic, or allergic reactions.? Fluoroscopic images were digitally archived. Naveed's vital signs were stable throughout the procedure and were as recorded in nursing records. Follow up plans and appointments were discussed with Naveed. Post procedure instruction was given as documented in nursing records and having met discharge criteria Naveed was discharged from the [facility]. COMMENTS: No apparent complications. Post-procedure pain: VAS= 5/10. Naveed to contact [facility] as needed. If at least 50% improvement in pain and/or function for at least 3 months is achieved, this procedure can be repeated. I personally performed this entire procedure. ANKUR FERNANDEZ DO, MPH ABPMR-subspecialty board certification in Pain Medicine [facility]
[2023-06-20] MEDS: Omnipaque 240 MG/ML 50 ML BTL IJ (12:27)
[2023-06-20] MEDS: methylPREDNISolone ACETATE 80 MG/ML VIAL IJ (12:27)
== END 2023-06-20 10:46 | disposition home or self-care (01) ==
LOC: PC 10:45
PROVIDERS: PCP Physician Assistant; Visit Provider Preventive Medicine Occupational Medicine
DX: M54.17 Radiculopathy, lumbosacral region (principal)
CPT/HCPCS: 62323; 72100; J1040; Q9967

== ENCOUNTER 2023-12-06 12:45 | Outpatient (CLI) | payer MEDICARE, MEDICAID, SELFPAY ==
[2023-12-06 13:09] VITALS: BP 110/71; PULSE 81; RESP 16; TEMP 36.5
--- NOTE | 2023-12-06 13:56 | PDOC.PAIN_ITS ---
Date of service: 12/06/23 Time of Service: 13:56 Pain Managment Procedure Note Procedure Note Procedure Note: PROCEDURE NOTE LUMBAR EPIDURAL STEROID INJECTION Date of Service: December 06, 2023 Patient:Naveed Jordan? Provider: Ankur Fernandez DO, MPH Naveed Uribe has been referred to the [facility] for a lumbar epidural steroid injection. Pre-operative diagnosis: Lumbosacral Radiculopathy Post-operative diagnosis: Same Pre-Procedure Pain: VAS= 7 /10 Comments: He had >50% pain improvement with his last lumbar epidural steroid injection on 06/20/23. Naveed was interviewed and the medical record was reviewed.? There were no medical, pharmacologic, radiographic or other structural contraindications to attempting fluoroscopically guided Lumbar epidural steroid injection.? Risks, potential side effects, indications, and potential benefits of the procedure w ere reviewed with Naveed.? Questions and concerns were addressed.? After it was clear that Naveed was fully informed about the procedure, the printed consent form was signed by the patient and myself.? Naveed was placed in the prone position on the fluoroscopy table and automated blood pressure cuff and pulse oximeter applied. The skin entry point for entering/approaching the epidural space for the lumbar epidural steroid injection was marked. Following thorough chlorhexadine preparation of the skin and draping and 1% lidocaine infiltration of the skin entry point and subcutaneous tissues, an 18 gauge Touhy needle was placed and advanced under fluoroscopic guidance and with loss of resistance technique into the L5-S1 epidural space. Needle tip placement and depth were aided and confirmed by fluoroscopy. There was no paresthesia or return of blood or CSF through the needle. 1 mls of Omnipaque 240 was injected with clear epidural spread confirmed with fluoroscopy. 80 mg of Depo-Medrol was? injected. This was followed by 1 ml of preservative-free normal saline to flush the steroid out of the needle. There was no unusual discomfort expressed by Naveed. The needle was withdrawn without difficulty. (49 mls of Omnipaque was wasted) Naveed was observed and was wi thout hemodynamic, neurologic, or allergic reactions.? Fluoroscopic images were digitally archived. Naveed's vital signs were stable throughout the procedure and were as recorded in nursing records. Follow up plans and appointments were discussed with Naveed. Post procedure instruction was given as documented in nursing records and having met discharge criteria Naveed was discharged from the [facility]. COMMENTS: No apparent complications. Post-procedure pain: VAS= 2/10. Naveed to contact [facility] as needed. If at least 50% improvement in pain and/or function for at least 3 months is achieved, this procedure can be repeated. I personally performed this entire procedure. ANKUR FERNANDEZ DO, MPH ABPMR-subspecialty board certification in Pain Medicine [facility]
[2023-12-06 14:01] VITALS: BP 113/85; PULSE 70; RESP 13; O2SAT 97
[2023-12-06] MEDS: Epidural Tray 1 EACH MC (14:02)
[2023-12-06] MEDS: Omnipaque 240 MG/ML 50 ML BTL IJ (14:02)
[2023-12-06] MEDS: methylPREDNISolone ACETATE 80 MG/ML VIAL IJ (14:03)
--- NOTE | 2023-12-06 16:27 | DI.RAD_ITS ---
Exam(s) XR PAIN CLINIC LUMBAR SP 2V EXAM: XR PAIN CLINIC LUMBAR SP 2V CLINICAL HISTORY: Dx: Lumbar Radiculopathy. TECHNIQUE: Fluoroscopy was provided for the referring physician for guidance with performing pain cl inic injection procedure. COMPARISON: No exams were available for comparison FINDINGS: Please see procedure note for details. Fluoro time: 12.9 seconds RADIATION DOSE DELIVERED: Ka,r=2.69 mGy
== END 2023-12-06 12:46 | disposition home or self-care (01) ==
LOC: PC 12:45
PROVIDERS: PCP Physician Assistant; Visit Provider Preventive Medicine Occupational Medicine
DX: M54.17 Radiculopathy, lumbosacral region (principal)
CPT/HCPCS: 00123; 62323; 72100; J1040; Q9967

== ENCOUNTER 2024-03-05 11:58 | Outpatient (REF) | payer MEDICARE, MEDICAID, SELFPAY ==
[2024-03-05 16:30] LABS: Hemoglobin A1C 5.5 % (<5.7)
[2024-03-05 16:36] LABS: ALT 46 U/L (16-63); AST 26 U/L (15-37); Albumin 4.1 g/dL (3.4-5.0); Alkaline Phosphatase 77 U/L (46-116); Anion Gap 1.6 mmol/L (3-11); BUN 17 mg/dL (7-18); Bilirubin, Total 0.2 mg/dL (0.2-1.0); CO2 27.4 mmol/L (21.0-32.0); Calcium 9.3 mg/dL (8.5-10.1); Calculated LDL 75 mg/dL (<100); Chloride 109 mmol/L (98-107); Cholesterol 139 mg/dL (<200); Estimated GFR 91.69 (mL/min/1.73m2); Glucose 100 mg/dL (74-106); HDL Cholesterol 53 mg/dL (40-60); Potassium 4.7 mmol/L (3.5-5.1); Sodium 138 mmol/L (136-145); Total Protein 7.1 g/dL (6.4-8.2); Triglyceride 59 mg/dL (<150)
== END 2024-03-05 11:59 | disposition home or self-care (01) ==
LOC: NCHCN 11:58
PROVIDERS: PCP Physician Assistant; Visit Provider Physician Assistant
DX: E78.5 Hyperlipidemia, unspecified (principal); R73.9 Hyperglycemia, unspecified
CPT/HCPCS: 80053; 80061; 83036